=== PATIENT | male | born 1940 | race Caucasian/White ===

== ENCOUNTER 2023-07-28 08:29 | Emergency (ER) | payer MEDICARE, SELFPAY ==
[2023-07-28 08:48] VITALS: BP 195/121; PULSE 77; TEMP 36.8; O2SAT 96; BMI 29.0
--- NOTE | 2023-07-28 08:51 | W.ED.FEMALGU ---
HPI - Female Genitourinary General: Stated complaint: blood in urine Time Seen by Provider: 07/28/23 08:38 Discharge Plan Discharge Condition: Stable Coding Level of Care Code ED [employer] Telephone Clerk for Eva Bowles
--- NOTE | 2023-07-28 09:10 | W.ED.MALEGU ---
HPI - Male Genitourinary General: Chief complaint: Urogenital-Male Stated complaint: blood in urine Time Seen by Provider: 07/28/23 08:38 Source: patient Mode of arrival: ambulatory History of Present Illness: 82-year-old male presents emergency room complaining of intermittent painless hematuria. Has had this for several days is more pronounced today. He normally self caths. No fever sweats or chills he is not on any anticoagulants no history of renal stones. MD Complaint: other (Painless hematuria) Onset (ago): hour(s) Duration: intermittent Severity: moderate Quality: aching Relieving factors: none Exacerbating factors: none Associated symptoms: Reports hematuria; Deny discharge, dysuria, fevers/chills, nausea, rash, swelling, urinary incontinence, urinary retention, mass or vomiting Review of Systems Const: Denies: fever(s), chills, fatigue or malaise ENMT: Denies: throat pain, ear or mastoid pain, nasal discharge or nasal congestion Card: Denies: chest pain, edema, dyspnea on exertion or orthopnea Resp: Denies: dyspnea, productive cough or non-productive cough GI: Reports: abdominal pain (Suprapubic); Denies: nausea or vomiting : Reports: hematuria; Denies: dysuria, urinary frequency, urinary urgency or urinary incontinence Skin/Breast: Denies: rash or pruritus Physical Exam Const: COMMON NORMALS: no acute distress GENERAL APPEARANCE: cooperative and comfortable ORIENTATION/CONSCIOUSNESS: Yes awake, Yes oriented to person, Yes oriented to place and Yes oriented to time HENMT: COMMON NORMALS: normocephalic, atraumatic and hearing grossly normal bilaterally HEAD & SCALP: normocephalic and atraumatic Resp: COMMON NORMALS: normal respiratory effort, No retractions, No use of accessory muscles and clear to auscultation bilaterally AUSCULTATION: clear to auscultation bilaterally Cardio: COMMON NORMALS: regular rate, regular rhythm and No murmurs present (Cardio) RATE: regular rate RHYTHM: regular rhythm GI: COMMON NORMALS: Soft to palpation and No hepatosplenomegaly present AUSCULTATION: Yes normoactive bowel sounds PALPATION: Yes Soft to palpation, No Tenderness to palpation present (GI), No Guarding due to palpation present (GI) and Yes No hepatosplenomegaly present Extremity: COMMON NORMALS: normal to inspection, capillary refill normal, no clubbing, cyanosis or edema, no calf tenderness and no pedal edema Neuro: SENSORIUM/ORIENTATION: Yes oriented to person, Yes oriented to place and Yes oriented to time Skin: COMMON NORMALS: no rashes or lesions noted GENERAL SKIN EXAM: no rashes or lesions noted Course Vital Signs: Vital signs: Vital Signs Temperature 98.3 F 07/28/23 08:48 Pulse Rate 77 07/28/23 08:48 Blood Pressure 195/121 07/28/23 08:48 Pulse Oximetry 96 07/28/23 08:48 Oxygen Delivery Me thod Room Air 07/28/23 08:48 MDM - Male Medical Decision Making Acute urinary retention and hematuria. Patient is thousand in the bladder postvoid residual bladder scan. Montilla was placed and irrigated until there were no clots returned. We will discharge patient home with a leg bag increase tamsulosin to 0.8 nightly start on Cipro 500 twice daily and set him up for outpatient urology consultation. Medical Records I reviewed the patient's medical records. Lab Data I reviewed the patient's lab results. 07/28/23 09:05 07/28/23 09:05 Laboratory Results WBC 5.01 10^3/uL (3.29-11.43) 07/28/23 09:05 RBC 3.69 10^6/uL (3.85-5.65) L 07/28/23 09:05 Hgb 11.60 g/dL (11.27-16.99) 07/28/23 09:05 Hct 35.1 % (37-53) L 07/28/23 09:05 MCV 95.1 fl (82-101) 07/28/23 09:05 MCH 31.4 pg (27-33) 07/28/23 09:05 MCHC 33.0 g/dL (30-55) 07/28/23 09:05 RDW 15.2 % (12.1-15.1) H 07/28/23 09:05 Plt Count 146 10^3/cmm (157-399) L 07/28/23 09:05 MPV 10.1 fL (7.4-10.4) 07/28/23 09:05 Neut % (Auto) 55.9 % 07/28/23 09:05 Lymph % (Auto) 30.9 % 07/28/23 09:05 [place] % (Auto) 10.8 % 07/28/23 09:05 Eos % (Auto) 1.4 % 07/28/23 09:05 Baso % (Auto) 0.8 % 07/28/23 09:05 Neut # (Auto) 2.80 10^3/uL (1.8-7.7) 07/28/23 09:05 Lymph # (Auto) 1.6 10^3/uL (0.8-4.8) 07/28/23 09:05 [place] # (Auto) 0.5 10^3/uL (0.2-0.9) 07/28/23 09:05 Eos # (Auto) 0.1 10^3/uL (0.0-0.8) 07/28/23 09:05 Baso # (Auto) 0.0 10^3/uL (0.0-0.1) 07/28/23 09:05 Nucleated RBC % (auto) 0 % 07/28/23 09:05 Nucleated RBCs # 0.0 /100WBC 07/28/23 09:05 Sodium 140 mmol/L (136-145) 07/28/23 09:05 Potassium 3.6 mmol/L (3.5-5.1) 07/28/23 09:05 Chloride 103 mmol/L (98-107) 07/28/23 09:05 Carbon Dioxide 29 mmol/L (22-29) 07/28/23 09:05 Anion Gap 11.6 (5-19) 07/28/23 09:05 BUN 13 mg/dL (8-23) 07/28/23 09:05 Creatinine 0.6 mg/dL (0.7-1.2) L 07/28/23 09:05 GFR Calculation Not Reportable 07/28/23 09:05 Glucose 98 mg/dL (65-115) 07/28/23 09:05 Calculated Osmolality 290 mOsm/kg (285-295) 07/28/23 09:05 Calcium 8.9 mg/dL (8.5-10.5) 07/28/23 09:05 Total Bilirubin 1.6 mg/dL (0.15-1.2) H 07/28/23 09:05 AST 19 U/L (0-40) 07/28/23 09:05 ALT 16 U/L (0-41) 07/28/23 09:05 Alkaline Phosphatase 100 U/L (40-130) 07/28/23 09:05 Total Protein 6.8 g/dL (6.6-8.7) 07/28/23 09:05 Albumin 4.2 g/dL (3.5-5.2) 07/28/23 09:05 Globulin 2.6 g/dL (1.3-4.6) 07/28/23 09:05 Urine Color Red (Yellow) A 07/28/23 09:25 Urine Appearance Bloody (CLEAR) A 07/28/23 09:25 Urine pH 8 (5-7) H 07/28/23 09:25 Ur Specific [place] 1.010 (1.005-1.030) 07/28/23 09:25 Urine Protein 3+ (Negative) H 07/28/23 09:25 Urine Glucose (UA) Norm (Normal) 07/28/23 09:25 Urine Ketones 1+ (Negative) H 07/28/23 09:25 Urine Blood 3+ (Negative) H 07/28/23 09:25 Urine Nitrate Negative (Negative) 07/28/23 09:25 Urine Bilirubin Neg (Negative) 07/28/23 09:25 Urine Urobilinogen Norm mg/dL (Negative) 07/28/23 09:25 Ur Leukocyte Esterase 2+ (Negative) H 07/28/23 09:25 Urine RBC Too numerous to cnt /hpf (0-2) H 07/28/23 09:25 Urine WBC 0-4 /hpf (0-5) H 07/28/23 09:25 Ur Squamous Epith Cells 0-4 /hpf (0-5) H 07/28/23 09:25 Amorphous Sediment Not Reportable 07/28/23 09:25 Urine Bacteria 2+ /hpf (NONE) H 07/28/23 09:25 No radiology studies performed this visit Discharge Plan Discharge Patient Disposition: Home Clinical Impression: Urinary tract infection, Acute retention of urine Condition: Stable Prescriptions: New Flomax 0.4 mg capsule 0.4 mg PO BID Qty: 60 0RF Cipro 500 mg tablet 500 mg PO BID Qty: 20 0RF No Action lisinopril 20 mg tablet 20 mg PO DAILY potassium chloride 10 mEq tablet extended release 10 meq PO BID levothyroxine 25 mcg Tablet 25 mcg PO DAILY Vitamin B-12 50 mcg Tablet 50 mcg PO DAILY tamsulosin 0.4 mg capsule 0.4 mg PO DAILY furosemide 20 mg tablet 20 mg PO BID CoQ-10 30 mg Capsule 30 mg PO DAILY Vitamin D3 25 mcg (1,000 unit) Capsule 25 mcg PO DAILY rosuvastatin 20 mg tablet 20 mg PO DAILY Fish Oil 300-1,000 mg Capsule 1 cap PO DAILY Discharge Orders: Discharge ED (Routine); Ordered 07/28/23 Ordered By: Ranjith Silva Discharge Diet: Usual diet Discharge Activity: Resume usual activity Patient Instructions: Opioid Safety, Pain Management Activity Restrictions/Additional Instructions: Case management will make referral to a urologist. The Montilla catheter will need to remain in place until you see urology. You did have a mild cystitis as well which we will treat you with oral antibiotics. Coding Level of Care Code ED [employer] Specialist for Eva Bowles
[2023-07-28 09:26] LABS: Basophils % 0.8 %; Eosinophils # 0.1 10^3/uL (0.0-0.8); Eosinophils % 1.4 %; Hematocrit 35.1 % (37-53); Lymphocytes # 1.6 10^3/uL (0.8-4.8); Lymphocytes % 30.9 %; Mean Corpuscular Hemoglobin 31.4 pg (27-33); Mean Corpuscular Volume 95.1 fl (82-101); Mean Platelet Volume 10.1 fL (7.4-10.4); Monocytes # 0.5 10^3/uL (0.2-0.9); Monocytes % 10.8 %; Neutrophils % 55.9 %; Nucleated Red Blood Cells % 0 %; Platelet Count 146 10^3/cmm (157-399); Red Blood Count 3.69 10^6/uL (3.85-5.65); Red Cell Distribution Width 15.2 % (12.1-15.1); White Blood Count 5.01 10^3/uL (3.29-11.43)
[2023-07-28 09:41] LABS: Alanine Aminotransferase 16 U/L (0-41); Albumin Level 4.2 g/dL (3.5-5.2); Alkaline Phosphatase 100 U/L (40-130); Anion Gap 11.6 (5-19); Aspartate Amino Transferase 19 U/L (0-40); Blood Urea Nitrogen 13 mg/dL (8-23); Calcium 8.9 mg/dL (8.5-10.5); Carbon Dioxide 29 mmol/L (22-29); Chloride 103 mmol/L (98-107); Creatinine Clr Calc Pharmacy 85.4156; Globulin 2.6 g/dL (1.3-4.6); Glucose 98 mg/dL (65-115); Osmolality Calculated 290 mOsm/kg (285-295); Potassium 3.6 mmol/L (3.5-5.1); Sodium 140 mmol/L (136-145); Total Bilirubin 1.6 mg/dL (0.15-1.2); Total Protein 6.8 g/dL (6.6-8.7)
--- NOTE | 2023-07-28 09:55 | PC.NURSE ---
family member to nurses station stating that even though pt had just catheterized for urine, he felt that his bladder was full again. MD notified and bladder scanned for urine. Bladder scan showing >1000 ml. Pt to restroom to cath and empty bladder.
[2023-07-28 10:01] LABS: Bilirubin Urine Neg (Negative); Blood Urine 3+ (Negative); Glucose Urine UA Norm (Normal); Ketones Urine 1+ (Negative); Leukocyte Esterase Urine 2+ (Negative); Nitrate Urine Negative (Negative); Protein Urine 3+ (Negative); RBC Urine TOO NUMEROUS TO CNT /hpf (0-2); Urine Appearance Bloody (CLEAR); Urobilinogen Urine Norm (Negative); pH Urine 8 (5-7)
[2023-07-28 10:02] LABS: Add Urine Culture? Yes; Add Urine Microscopic? YES; Bacteria Urine 2+ /hpf; Squamous Epithelial Cell Urine 0-4 /hpf (0-5); Urine Color Red (Yellow); WBC Urine 0-4 /hpf (0-5)
--- NOTE | 2023-07-29 09:34 | PC.SOCIAL ---
Urology Referral Spoke with patient, who chose for referral to be sent to [facility]. Referral faxed at this time.
== END 2023-07-28 12:09 | disposition home or self-care (01) ==
PROVIDERS: Physician Assistant; Emergency Provider Family Medicine
DX: N39.0 Urinary tract infection, site not specified (principal); R33.9 Retention of urine, unspecified
CPT/HCPCS: 80053; 81001; 85025; 87077; 87086; 87186; 99283

== ENCOUNTER → 2023-08-21 13:37 | Outpatient (BNVA) | payer MEDICARE, SELFPAY | PROVIDERS: PCP Nurse Practitioner Family; Visit Provider Internal Medicine | DX: R07.9 Chest pain, unspecified (principal); I48.91 Unspecified atrial fibrillation; I45.10 Unspecified right bundle-branch block; I25.10 Atherosclerotic heart disease of native coronary artery without angina pectoris; I51.7 Cardiomegaly | CPT/HCPCS: 93005; 99204 ==

== ENCOUNTER → 2023-09-06 09:36 | Outpatient (BNVA) | payer MEDICARE, SELFPAY | PROVIDERS: PCP Nurse Practitioner Family; Visit Provider Nurse Practitioner | DX: M25.562 Pain in left knee (principal); G89.29 Other chronic pain | CPT/HCPCS: 73560; 73565 ==

== ENCOUNTER → 2023-09-10 13:49 | Outpatient (BNVA) | payer MEDICARE, SELFPAY | PROVIDERS: PCP Nurse Practitioner Family; Referring Provider Nurse Practitioner Family; Visit Provider Surgery | DX: K42.9 Umbilical hernia without obstruction or gangrene (principal); K59.09 Other constipation | CPT/HCPCS: 99204 ==

== ENCOUNTER 2023-09-12 06:44 | Day surgery (SDC) | payer MEDICARE, SELFPAY ==
[2023-09-12] VITALS (16 sets, daily range): BP systolic 142–214; BP diastolic 72–113; PULSE 69–83; RESP 14–18; TEMP 36.3–36.8; O2SAT 92–100; BMI 29.7
--- NOTE | 2023-09-12 06:57 | W.PM.OPSUD ---
Surgery/Procedure H&P Update DATE OF PROCEDURE: September 12, 2023 DATE H&P PERFORMED: 09/10/23 H&P UPDATE INFORMATION: I have reviewed H&P completed within last 30 days, I have examined patient prior to procedure and No changes to prior documentation PLANNED PROCEDURE: Operation Date: 09/12/23 08:10 Proposed Procedures p 91205 lap umbilical hernia repair with mesh K42.9(Not Applicable) - Ady Allen, DO
[2023-09-12] MEDS: sodium chloride 0.9% 1,000 ML 30 ML IV (07:57)
[2023-09-12] MEDS: scopolamine 1.5 Patch 1 PATCH TRANSDERMA (08:06)
[2023-09-12] MEDS: ceFAZolin 2,000 MG in sodium chloride 0.9% (plus) 50 ML 100 MG IV (08:15)
[2023-09-12 08:36] LABS: Eosinophils # 0.2 10^3/uL (0.0-0.8); Eosinophils % 3.8 %; Hematocrit 36.9 % (37-53); Lymphocytes # 1.4 10^3/uL (0.8-4.8); Lymphocytes % 36.1 %; Mean Corpuscular Hemoglobin 31.3 pg (27-33); Mean Corpuscular Volume 97.9 fl (82-101); Mean Platelet Volume 10.8 fL (7.4-10.4); Monocytes # 0.5 10^3/uL (0.2-0.9); Monocytes % 12.9 %; Neutrophils # 1.82 10^3/uL (1.8-7.7); Neutrophils % 45.9 %; Nucleated Red Blood Cells % 0 %; Platelet Count 141 10^3/cmm (157-399); Red Blood Count 3.77 10^6/uL (3.85-5.65); Red Cell Distribution Width 14.8 % (12.1-15.1); White Blood Count 3.96 10^3/uL (3.29-11.43)
[2023-09-12] MEDS: lidocaine-epi 2% 20 mL INJ 10 ML INJECTION (08:40)
--- NOTE | 2023-09-12 09:05 | PM.OP ---
Operative Report Date of procedure: September 12, 2023 Pre-op diagnosis: Umbilical hernia Post-op diagnosis: same Procedure done: Laparoscopic umbilical hernia repair with mesh Implants: 11 cm round Ventralight mesh Specimens removed/disposition: Hernia sac Surgeon: Ady Allen DO Anesthesia: General Estimated blood loss (mL): 5 Complications: None apparent Brief History: This very pleasant 82-year-old gentleman with an umbilical hernia that causes him pain. He desired repair. The risk and benefits were explained and documented. Procedure: Patient was wheeled into the operative room and placed on the OR table in a supine position. Abdomen was inspected prepped and draped in usual sterile fashion. Time-out was performed and all present were in agreement. A 15 blade scalp was used to make a 5 millimeter incision left upper quadrant. A Veress needle was placed into the incision and intra-abdominal insufflation was brought to 15 millimeters of mercury. A 12 millimeter trocar was placed into the left lower quadrant. The energy but device was then used to cut out the hernia sac. The hernia defect measured 1.5 cm in diameter. An 11 cm round Ventralight mesh was placed into the abdomen and brought up through the umbilicus using an the Marv-Renaldo. The mesh was then tacked in place in a double crown fashion. The skeleton of the mesh was removed via the left lower quadrant. The hernia sac was then removed from the abdomen via the left lower quadrant. The left lower quadrant port site was closed with an 0 Vicryl suture in a Marv-Renaldo in a [id number] fashion. Incisions were closed with 4 O Vicryl in a subcuticular interrupted fashion. Skin glue was applied. A dressing that included cotton balls and a Tegaderm was placed over the umbilicus. Patient tolerated the procedure well.
[2023-09-12] MEDS: HYDROmorphone 1 mg/mL INJ 1 mL 0.5 MG IVP ×3 (09:25→12:10)
--- NOTE | 2023-09-12 10:11 | ANES.PREANE2 ---
Pre-Anesthetic Assessment Height/Weight: Height 1.85 m Weight 102.058 kg Temp Pulse Resp BP Pulse Ox O2 Del Method O2 Flow Rate 98.3 F 80 16 183/102 95 Nasal Cannula 2 09/12/23 10:06 09/12/23 10:06 09/12/23 10:06 09/12/23 10:06 09/12/23 10:06 09/12/23 10:06 09/12/23 10:06 Operation Date: 09/12/23 08:10 Proposed Procedures p 08974 lap umbilical hernia repair with mesh K42.9(Not Applicable) - Ady Allen DO Familial anesthetic complications: none Was Beta Haydee taken within 24 hours: N/A Was Clonidine taken within 24 hours: N/A Last intake: Intake Last Liquid Date 09/11/23 Last Liquid Time 19:00 Last Solid Date 09/11/23 Last Solid Time 19:00 Social No alcohol and No tobacco Exam alert, oriented x 3 and clear to auscultation bilaterally Airway Submandibular: within normal limits Cervical ROM: within normal limits Mallampati: Class II Dentition: caps CV/HEM Atrial Fibrillation, Coronary Artery Disease (CABG) and Hypertension Self cath (since CABG) Metabolic Hyperlipidemia and Thyroid Disease Anesthetic Plan ASA status: 3 Anesthesia: General Medications/Allergies Home Medications Medication Instructions Recorded Confirmed Last Taken Type cholecalciferol (vitamin D3) 25 25 mcg PO DAILY 07/28/23 09/11/23 09/11/23 History mcg (1,000 unit) capsule (Vitamin D3) coenzyme Q10 30 mg capsule 30 mg PO DAILY 07/28/23 09/11/23 09/11/23 History cyanocobalamin (vitamin B-12) 50 50 mcg PO DAILY 07/28/23 09/11/23 09/11/23 History mcg tablet (Vitamin B-12) furosemide 20 mg tablet 20 mg PO BID 07/28/23 09/11/23 09/11/23 History levothyroxine 25 mcg tablet 25 mcg PO DAILY 07/28/23 09/11/23 09/11/23 History lisinopril 20 mg tablet 20 mg PO DAILY 07/28/23 09/11/23 09/11/23 History omega 0-ejd-evm-fish oil 300 1 cap PO DAILY 07/28/23 09/11/23 09/11/23 History mg-1,000 mg capsule (Fish Oil) potassium chloride 10 mEq 10 meq PO BID 07/28/23 09/11/23 09/11/23 History tablet,extended release rosuvastatin 20 mg tablet 20 mg PO DAILY 07/28/23 09/11/23 09/11/23 History tamsulosin 0.4 mg capsule 0.4 mg PO DAILY 07/28/23 09/11/23 09/11/23 History docusate sodium 100 mg capsule 100 mg PO BID #14 caps 09/12/23 Unknown Rx (DOK) hydrocodone 10 mg-acetaminophen 1 tab PO Q6H PRN pain #20 tabs 09/12/23 Unknown Rx 325 mg tablet Allergies Allergy/AdvReac Type Severity Reaction Status Date / Time No Known Allergies Allergy Verified 09/11/23 13:39 Current Medications Generic Name Dose Route Start Last Admin Trade Name Freq PRN Reason Stop Dose Admin Hydromorphone HCl 0.5 mg 09/12/23 06:51 09/12/23 09:40 Hydromorphone 1 Mg/Ml Inj 1 Ml IVP 09/13/23 06:51 0.5 mg Q10M PRN Administration Pain level 6-10 PACU Phase I Sodium Chloride 1,000 mls @ 30 mls/hr 09/12/23 07:00 09/12/23 07:57 Sodium Chloride 0.9% IV 09/13/23 06:59 30 mls/hr .Q24H WENDY Administration PFSH Anesthesia Medical History (Updated 09/10/23 @ 14:38 by Ady Allen DO) Hernia Surgical History (Updated 09/10/23 @ 14:38 by Ady Allen DO) History of open heart surgery History of quadruple bypass Data Anesthesia 09/12/23 07:40 09/12/23 07:40 Short CBC 09/12/23 Range/Units 07:40 WBC 3.96 (3.29-11.43) 10^3/uL Hgb 11.80 (11.27-16.99) g/dL Hct 36.9 L (37-53) % MCV 97.9 (82-101) fl Plt Count 141 L (157-399) 10^3/cmm Neut % (Auto) 45.9 % Neut # (Auto) 1.82 (1.8-7.7) 10^3/uL BMP 09/12/23 07:40 Sodium Cancelled Potassium Cancelled Chloride Cancelled Carbon Dioxide Cancelled BUN Cancelled Creatinine Cancelled Glucose Cancelled Calcium Cancelled Cardiac Studies: No Data to Display
--- NOTE | 2023-09-12 10:12 | ANE.PACU2 ---
Inpatient post-anesthesia follow up: Airway intact: Yes Vital signs: Temperature 98.3 F Pulse Rate 80 Respiratory Rate 16 Blood Pressure 183/102 Pulse Oximetry 95 Oxygen Delivery Me thod Nasal Cannula Oxygen Flow Rate 2 Fraction of Inspir ed Oxygen Hydration adequate: Yes Nausea and vomiting: No Pain level: 3 Mental status: Baseline
[2023-09-12] MEDS: ondansetron 2 mg/ML SDV 2 mL 4 MG IVP (10:13)
[2023-09-12] MEDS: HYDROcodone-acetaminophen 10-325 mg Tablet 1 TAB PO (10:37)
[2023-09-12] MEDS: acetaminophen 1,000 MG/100 ML PIGGYBACK 400 MG IV (12:04)
== END 2023-09-12 12:39 | disposition home or self-care (01) ==
PROVIDERS: PCP Nurse Practitioner Family; Visit Provider Surgery
PROC: 0WQF4ZZ Repair Abdominal Wall, Percutaneous Endoscopic Approach (ICD-10-PCS; CPT 49591; principal; 2023-09-12 08:00)
DX: K42.9 Umbilical hernia without obstruction or gangrene (principal); I48.91 Unspecified atrial fibrillation; I25.10 Atherosclerotic heart disease of native coronary artery without angina pectoris; Z95.1 Presence of aortocoronary bypass graft; I10 Essential (primary) hypertension; E78.5 Hyperlipidemia, unspecified
CPT/HCPCS: 49591; 85025; 88302; C1781; J0131; J0690; J1100; J1170; J2405; J2704; J2710; J3010; J3490; J7030

== ENCOUNTER 2023-09-17 10:52 | Emergency (ER) | payer MEDICARE, SELFPAY ==
[2023-09-17 11:04] VITALS: BP 211/91; PULSE 85; RESP 17; TEMP 36.4; O2SAT 93; BMI 29.2
--- NOTE | 2023-09-17 11:34 | XR_ITS ---
WS: [id number] Exam: XR abdomen 1V* [id number] Date/Time of Exam: 09/17/2023 11:45 AM Reason For Exam: constipation, postsurgical, no bm for 7 days No bowel obstruction or free air. Large amount of stool in the transverse and RIGHT colon. No sign of organ enlargement. Bony structures are intact. Mild levoscoliosis of the lumbar spine. IMPRESSION: 1. Constipation with a large amount of stool in the transverse and RIGHT colon. 2. No acute abdominal process.
--- NOTE | 2023-09-17 12:01 | W.ED.ABDPA2 ---
HPI - Abdominal Pain General: Chief Complaint: Abdominal Pain Stated Complaint: abdominal pain, hernia surgery 09/12, cant urinate Time Seen by Provider: 09/17/23 10:56 History of Present Illness: Patient presents to the ER with complaints of constipation on lower abdominal pain with nausea. Patient says he had hernia repair on 09/[address] Allen and has not had a bowel movement since then. Patient does admit to having his stomach making noises and passing gas does not have a bowel movement. Patient states he is on narcotics for the surgery. Patient was doing well up until couple days ago when his abdomen started hurting. Review of Systems General: Reports: 10 or more systems reviewed and unremarkable except in HPI and below PFSH ED PFSH: Medical History Hernia Surgical History History of open heart surgery History of quadruple bypass Physical Exam Const: COMMON NORMALS: no acute distress, average body habitus, patient oriented x3, no limitations, healthy appearing, alert and well nourished HENMT: COMMON NORMALS: normocephalic, atraumatic, hearing grossly normal bilaterally, external ears normal, Normal external nose present, moist oral mucous membranes and oropharynx normal HEAD & SCALP: normocephalic and atraumatic NOSE: Normal external nose present EXTERNAL EAR: Yes external ears normal Eye: COMMON NORMALS: Equal, round and reactive pupils present, EOMs intact bilaterally, conjunctivae normal and no scleral icterus CONJUNCTIVA: Yes conjunctivae normal PUPIL: Yes Equal, round and reactive pupils present Neck/C-Spine: COMMON NORMALS: no JVD Chest: COMMONS NORMALS: normal inspection of the chest and normal palpation of entire chest wall Resp: COMMON NORMALS: normal respiratory effort, No retractions, No use of accessory muscles and clear to auscultation bilaterally AUSCULTATION: clear to auscultation bilaterally Cardio: COMMON NORMALS: no JVD, regular rate, regular rhythm, S1 normal heart sound present, S2 normal heart sound present, No gallops present (Cardio), No clicks present (Cardio), No murmurs present (Cardio) and No rub (Cardio) RATE: regular rate RHYTHM: regular rhythm HEART SOUNDS: S1 normal heart sound present and S2 normal heart sound present GI: COMMON NORMALS: Normal to inspection, nondistended, normoactive bowel sounds present, Soft to palpation, No hepatosplenomegaly present and no masses; negative for non-tender (Diffusely tender, decreased bowel sounds throughout) PALPATION: Yes Soft to palpation and Yes No hepatosplenomegaly present Neuro: COMMON NORMALS: patient oriented x3 SENSORIUM/ORIENTATION: Yes alert Course Vital Signs: Vital signs: Vital Signs Temperature 97.6 F 09/17/23 11:04 Pulse Rate 85 09/17/23 11:04 Respiratory Rate 17 09/17/23 11:04 Blood Pressure 185/81 09/17/23 13:44 Pulse Oximetry 94 09/17/23 13:44 Oxygen Delivery Me thod Room Air 09/17/23 13:44 MDM - Abdominal Pain Medical Decision Making Patient presents to the ER with complaints of constipation. On physical exam as noted patient has high blood pressure also. Patient was given clonidine 0.2 mg as well as Dulcolax 10 mg and lactulose 45 g. X-ray was read off his constipation. Patient be discharged home with a prescription for lactulose and Dulcolax. Patient should follow-up with his PCP in approximately 7 days or sooner as needed. Differential Diagnosis Likely abdominal pain and constipation; Unlikely acute appendicitis, calculus of kidney, diverticulitis, endometriosis, gastroenteritis, pancreatitis or small bowel obstruction Medical Records I reviewed the patient's medical records. Lab Data I reviewed the patient's lab results. All radiology interpretation(s) finalized by discharge Discharge Plan Discharge Patient Disposition: Home Clinical Impression: Constipation Condition: Stable Prescriptions: New lactulose 20 gram/30 mL solution 30 g PO TID PRN (Reason: constipation) Qty: 1200 0RF bisacodyl [Dulcolax (bisacodyl)] 5 mg tablet,delayed release (DR/EC) 5 mg PO BID PRN (Reason: constipation) Qty: 30 0RF No Action lisinopril 20 mg tablet 20 mg PO DAILY potassium chloride 10 mEq tablet extended release 10 meq PO BID levothyroxine 25 mcg Tablet 25 mcg PO DAILY Vitamin B-12 50 mcg Tablet 50 mcg PO DAILY tamsulosin 0.4 mg capsule 0.4 mg PO DAILY furosemide 20 mg tablet 20 mg PO BID coenzyme Q10 30 mg Capsule 30 mg PO DAILY cholecalciferol (vitamin D3) [Vitamin D3] 25 mcg (1,000 unit) Capsule 25 mcg PO DAILY rosuvastatin 20 mg tablet 20 mg PO DAILY omega 8-pnh-nur-fish oil [Fish Oil] 300-1,000 mg Capsule 1 cap PO DAILY hydrocodone-acetaminophen 10-325 mg tablet 1 tab PO Q6H PRN (Reason: pain) Qty: 20 0RF Rx Instructions: May take half of a tab at a time docusate sodium [DOK] 100 mg capsule 100 mg PO BID Qty: 14 0RF ondansetron 8 mg tablet,disintegrating 8 mg PO TID PRN (Reason: nausea and vomiting) Qty: 20 1RF Discharge Orders: Discharge ED (Routine); Ordered 09/17/23 Ordered By: Maxwell Zepead Referrals: Katie Otto NP [Primary Care Provider] - 1 week Patient Instructions: Constipation (ED) Activity Restrictions/Additional Instructions: Please take all your medicine as directed. Please increase fiber and increase water. Please follow-up with your family practice physician within the next 7 days or sooner as needed. If your symptoms do not resolve please return to the ER for further evaluation. Coding Level of Care Code ED Charge Entry for Eva Bowles
[2023-09-17 12:52] VITALS: BP 210/97
[2023-09-17] MEDS: bisacodyl 5 mg Tablet 10 MG PO (12:52)
[2023-09-17] MEDS: cloNIDine 0.1 mg Tablet 0.2 MG PO (12:52)
[2023-09-17] MEDS: lactulose oral liq 20 gm/30 mL UDC 45 GM PO (12:53)
[2023-09-17 13:44] VITALS: BP 185/81; O2SAT 94
== END 2023-09-17 14:38 | disposition home or self-care (01) ==
PROVIDERS: Emergency Provider Emergency Medicine; PCP Nurse Practitioner Family
DX: K59.00 Constipation, unspecified (principal)
CPT/HCPCS: 74018; 99283

== ENCOUNTER → 2023-09-24 09:36 | Outpatient (BNVA) | payer MEDICARE, SELFPAY | PROVIDERS: PCP Nurse Practitioner Family; Visit Provider Surgery | DX: Z98.890 Other specified postprocedural states (principal); Z87.19 Personal history of other diseases of the digestive system | CPT/HCPCS: 99024 ==

== ENCOUNTER → 2023-10-16 09:50 | Outpatient (BNVA) | payer MEDICARE, SELFPAY | PROVIDERS: PCP Nurse Practitioner Family; Visit Provider Nurse Practitioner Family | DX: L57.0 Actinic keratosis (principal); D22.4 Melanocytic nevi of scalp and neck; L81.4 Other melanin hyperpigmentation; L57.8 Other skin changes due to chronic exposure to nonionizing radiation; Z85.828 Personal history of other malignant neoplasm of skin | CPT/HCPCS: 17000; 99203 ==

== ENCOUNTER → 2023-12-09 10:43 | Outpatient (BNVA) | payer MEDICARE, SELFPAY | PROVIDERS: PCP Nurse Practitioner Family; Referring Provider Nurse Practitioner Family; Visit Provider Internal Medicine Pulmonary Disease | DX: J90 Pleural effusion, not elsewhere classified (principal); R06.02 Shortness of breath; Z95.1 Presence of aortocoronary bypass graft; Z99.89 Dependence on other enabling machines and devices | CPT/HCPCS: 36415; 71046; 82785; 85025; 86003; 99204 ==

== ENCOUNTER 2023-12-16 08:57 | Outpatient (CLI) | payer MEDICARE, SELFPAY ==
--- NOTE | 2023-12-16 09:15 | USCV_ITS ---
King Perkins Age: 83 Gender: M : 1940 Exam Date: 12/16/2023 09:08 Ordering Phys: Tenzin Dudley MD Technologist: Exam Location: [facility] [place] Indication: chest pain BP: 155 / 97 HR: 0 Rhythm: Sinus Technical Quality: Adequate MEASUREMENTS (Male / Female) Normal Values 2D ECHO LV Diastolic Diameter PLAX 5.5 cm 4.2 - 5.9 / 3.9 - 5.3 cm IVS Diastolic Thickness 1.4 cm 0.6 - 1.0 / 0.6 - 0.9 cm IVS Systolic Thickness 1.7 cm LVPW Diastolic Thickness 1.3 cm 0.6 - 1.0 / 0.6 - 0.9 cm LVPW Systolic Thickness 1.7 cm LV Ejection Fraction 2D Teich 59.5 % IVC Diameter 2.1 cm DOPPLER AV Peak Velocity 247.0 cm/s LVOT Peak Velocity 84.0 cm/s AV Area Cont Eq vti 1.1 cm squared MV Area PHT 7.1 cm squared TR Peak Velocity 363.0 cm/s TR Peak Gradient 52.7 mmHg Right Atrial Pressure 3.0 mmHg Pulmonary Artery Systolic Pressu 55.7 mmHg PV Peak Velocity 85.0 cm/s FINDINGS Left Ventricle Left ventricle is normal in size. LV systolic function is normal with EF 55 to 60%. No regional wall motion abnormalities are seen. Right Ventricle Normal in size and function Right Atrium Dilated Left Atrium Severely dilated Mitral Valve Mitral annular calcification. Mild mitral regurgitation. Aortic Valve Aortic valve is thickened and calcified. Mild aortic stenosis with mean gradient of 11 mmHg. Tricuspid Valve Moderate tricuspid regurgitation. RVSP is 55-60 mmHg. This is consistent with moderate pulmonary hypertension. Pulmonic Valve Mild pulmonic regurgitation. Pericardium Normal Aorta Normal in size IVC Appears to be dilated CONCLUSIONS LV systolic function is normal with EF of 55-60% Biatrial dilation Mild mitral regurgitation Mild aortic stenosis Moderate tricuspid regurgitation Moderate pulmonary hypertension Mild pulmonic regurgitation IVC is dilated. No comparsion studies are available. Td Lowry MD (Electronically Signed) Final Date: 24 December 2023 15:01 S
== END 2023-12-16 08:58 | disposition home or self-care (01) ==
LOC: RAD 08:58
PROVIDERS: PCP Nurse Practitioner Family; Visit Provider Internal Medicine Pulmonary Disease
DX: R06.02 Shortness of breath (principal)
CPT/HCPCS: 93306

== ENCOUNTER 2023-12-31 08:49 | Day surgery (SDC) | payer MEDICARE, SELFPAY ==
[2023-12-31 09:07] VITALS: BP 212/100; PULSE 80; RESP 16; TEMP 36.5; O2SAT 92
[2023-12-31 09:09] VITALS: BMI 27.7
--- NOTE | 2023-12-31 09:27 | XR_ITS ---
WS: [id number] PORTABLE CHEST HISTORY: Post RIGHT thoracentesis. COMPARISON: 12/09/2023 No pneumothorax status post thoracentesis. There is a small area of obscuration at the RIGHT lung bas e extending to the diaphragm. This is not a simple layering pleural effusion. This may be a chronic e ffusion or pleural thickening. Similar as compared to the prior study. LEFT lung is hyperexpanded. Cardiac size: Moderately enlarged cardiac silhouette. Prior CABG. Mediastinum/Aorta: Atherosclerosis aorta. No osseous abnormality seen. IMPRESSION: 1. Increased pleural density at the RIGHT lung base obscuring the diaphragm. This is not a simple la yering pleural effusion. This may be a chronic or loculated effusion or pleural thickening. 2. No pneumothorax post thoracentesis.
--- NOTE | 2023-12-31 09:46 | PM.OUTPTPROC ---
Outpatient Procedures Thoracentesis Consent signed and on chart: Yes Time Out Performed: Yes Procedure: therapeutic thoracentesis Location: Right Local anesthetic used: lidocaine 1% Bedside ultrasound used: yes, pleural effusion confirmed and location marked and yes, real-time guidance Preparation: sterile prep and drape Amount of fluid obtained (mL): 0 Size of needle used: 20 Post Procedure Exam: awake, alert, normal BP, normal HR and normal SpO2 Post-procedure chest x-ray ordered: Yes Estimated blood loss (mL): 5 Patient Tolerated Procedure: well and no complications Procedure Note: Pulmonary & Critical Care Medicine Procedure - Ultrasound guided Thoracentesis Procedure: CPT code 68989 thoracentesis, needle or catheter, aspiration of the pleural space; with imaging guidance Indication: Worsening right pleural effusion. C56.2 Senior Web Applications Developer(s): Tenzin Dudley MD [facility] Clinical history:Mr. King warren is an 83-year-old male with past medical history of CAD, atrial fibrillation referred by Iraida Otto for pleural effusion. Pt tells me that he moved from [place] in june 2023. He had h/o pleural effusion in April 2018 and he had fluid in lungs and was drained 4 times in that month. He was checked later and was told he has small residual effusion. He is complaining of shortness of breath on exertion. Chest x ray showed Increased pleural density at the RIGHT lung base obscuring the diaphragm. This is not a simple layering pleural effusion. This may be a chronic or loculated effusion or pleural thickening. We will proceed with thoracentesis for diagnostic as well as therapeutic benefits. Technique: The study was performed in an ACR accredited facility. Medication reconciliation form reviewed and any changes related this procedure resolved. Report: The procedure for thoracentesis was explained to the patient including the risks, benefits and possible complications. The patient was given the opportunity to ask questions, wished to proceed, and signed the written informed consent form. The site was then prepped and draped using maximal sterile barrier technique. Using ultrasound guidance, using 20 guauge needle 1% lidocaine was used for local anesthetic; however the needle was placed in the pleural cavity but could not aspirate. After couple of attempts the procedure was terminated. Post procedure vitasl are stable and chest x ray did not show any pneumothorax. The patient tolerated the procedure well without any immediate complications. Impression: 1. unsuccessful ultrasound-guided right thoracentesis ICD-10 code-J90 pleural effusion, not elsewhere classified
== END 2023-12-31 09:55 | disposition home or self-care (01) ==
LOC: GILAB 08:51
PROVIDERS: PCP Nurse Practitioner Family; Visit Provider Internal Medicine Pulmonary Disease
DX: J90 Pleural effusion, not elsewhere classified (principal); I25.10 Atherosclerotic heart disease of native coronary artery without angina pectoris; I48.91 Unspecified atrial fibrillation; Z53.8 Procedure and treatment not carried out for other reasons
CPT/HCPCS: 32555; 71045

== ENCOUNTER 2024-01-21 08:45 | Outpatient (CLI) | payer MEDICARE, SELFPAY ==
[2024-01-21 09:09] VITALS: PULSE 67; RESP 18; O2SAT 99
[2024-01-21] MEDS: albuterol 2.5 mg/3 mL Neb INHALATION (09:09)
[2024-01-21 09:13] VITALS: PULSE 71
== END 2024-01-21 08:46 | disposition home or self-care (01) ==
LOC: RT 08:47
PROVIDERS: PCP Nurse Practitioner Family; Visit Provider Internal Medicine Pulmonary Disease
DX: R06.02 Shortness of breath (principal)
CPT/HCPCS: 94060; 94726; 94729; J7613

== ENCOUNTER → 2024-02-24 10:10 | Outpatient (BNVA) | payer MEDICARE, SELFPAY | PROVIDERS: PCP Nurse Practitioner Family; Visit Provider Nurse Practitioner Family | DX: I48.0 Paroxysmal atrial fibrillation (principal); I25.10 Atherosclerotic heart disease of native coronary artery without angina pectoris | CPT/HCPCS: 99214 ==

== ENCOUNTER → 2024-06-04 08:29 | Outpatient (BNVA) | payer MEDICARE, SELFPAY | PROVIDERS: PCP Nurse Practitioner Family; Visit Provider Nurse Practitioner Family | DX: D48.5 Neoplasm of uncertain behavior of skin (principal); L57.0 Actinic keratosis; S80.921A Unspecified superficial injury of right lower leg, initial encounter; X58.XXXA Exposure to other specified factors, initial encounter; D22.4 Melanocytic nevi of scalp and neck; L82.1 Other seborrheic keratosis; L81.4 Other melanin hyperpigmentation; L98.8 Other specified disorders of the skin and subcutaneous tissue; Z85.828 Personal history of other malignant neoplasm of skin | CPT/HCPCS: 11102; 17000; 99213 ==

== ENCOUNTER → 2024-09-07 13:20 | Outpatient (BNVA) | payer MEDICARE, SELFPAY | PROVIDERS: PCP Nurse Practitioner Family; Visit Provider Nurse Practitioner Family | DX: Z09 Encounter for follow-up examination after completed treatment for conditions other than malignant neoplasm (principal); L57.0 Actinic keratosis; L81.4 Other melanin hyperpigmentation; L98.8 Other specified disorders of the skin and subcutaneous tissue; Z85.828 Personal history of other malignant neoplasm of skin | CPT/HCPCS: 17000; 99213 ==

== ENCOUNTER → 2024-11-25 14:04 | Outpatient (BNVA) | payer MEDICARE, SELFPAY | PROVIDERS: PCP Nurse Practitioner Family; Visit Provider Internal Medicine | DX: I48.0 Paroxysmal atrial fibrillation (principal); I25.10 Atherosclerotic heart disease of native coronary artery without angina pectoris | CPT/HCPCS: 99214 ==

== ENCOUNTER 2025-01-11 13:55 | Outpatient (CLI) | payer MEDICARE, SELFPAY ==
--- NOTE | 2025-01-11 14:15 | USCV_ITS ---
King Perkins Age: 84 Gender: M : 1940 Exam Date: 01/11/2025 14:47 Ordering Phys: Td Lowry M.D ([email or web address]) Technologist: JORDON Exam Location: [facility] Indication: CP, SOB BP: 145 / 80 HR: 66 Rhythm: Sinus Technical Quality: Adequate MEASUREMENTS (Male / Female) Normal Values 2D ECHO LV Diastolic Diameter PLAX 4.4 cm 4.2 - 5.9 / 3.9 - 5.3 cm IVS Diastolic Thickness 1.4 cm 0.6 - 1.0 / 0.6 - 0.9 cm IVS Systolic Thickness 1.9 cm LVPW Diastolic Thickness 1.5 cm 0.6 - 1.0 / 0.6 - 0.9 cm LVPW Systolic Thickness 2.5 cm LVOT Diameter 2.1 cm LV Ejection Fraction 2D Teich 63.1 % LV Ejection Fraction MOD 4C 68.7 % LV Ejection Fraction MOD 2C 76.0 % LV Ejection Fraction 2C AL 76.5 % LA Diameter 5.7 cm RA Systolic Volume 4C AL 71.5 ml RA Systolic Volume 4C MOD 68.4 ml LA Sys Volume AL 110.1 cm cubed LA Sys Volume Index AL 50.6 cm cubed/m squared Aorta at Sinotubular Diameter 2.5 cm IVC Diameter 2.9 cm M-MODE LA Ao Ratio MM 1.7 AV Cusp Separation MM 0.9 cm DOPPLER AV Peak Velocity 282.5 cm/s LVOT Peak Velocity 97.0 cm/s AV Area Cont Eq vti 1.2 cm squared AV Area Cont Eq pk 1.2 cm squared MV Peak Velocity 170.0 cm/s MV Area PHT 3.8 cm squared Mitral E to A Ratio 3.2 TV Peak Velocity 358.5 cm/s TR Peak Velocity 381.0 cm/s TR Peak Gradient 58.1 mmHg TV Peak E Velocity 126.0 cm/s PV Peak Velocity 135.0 cm/s FINDINGS Left Ventricle Left ventricle is normal in size. LV systolic function is normal with EF of 60-65%. No regional wall motion abnormalities are seen. Right Ventricle RV is hypokinetic Right Atrium Dilated. Appears to have echogenic structure consistent with possible large thrombus. Left Atrium Dilated Mitral Valve Moderate mitral annular calcification. Trace mitral regurgitation. Aortic Valve Aortic valve is thickened and calcified. Moderate aortic stenosis with aortic valve area of 1.13cm2 and mean gradient across aortic valve of 19mmHg, Tricuspid Valve Mild tricuspid regurgitation. RVSP is 50 to 55 mmHg. This is consistent with moderate pulmonary hypertension. Pulmonic Valve Not well visualized Pericardium Normal Aorta Normal in size IVC Appears dilated CONCLUSIONS LV systolic function is normal with EF of 60-65%. RV is hypokinetic RA is dilated Appears to have echogenic structure consistent with possible large thrombus. Dilated Trace mitral regurgitation. Moderate aortic stenosis with aortic valve area of 1.13cm2 and mean gradient across aortic valve of 19mmHg, Mild tricuspid regurgitation. RVSP is 50 to 55 mmHg. This is consistent with moderate pulmonary hypertension. IVC appears to be dilated Td Lowry MD (Electronically Signed) Final Date: 11 January 2025 16:43 S
== END 2025-01-11 13:56 | disposition home or self-care (01) ==
PROVIDERS: PCP Nurse Practitioner Family; Visit Provider Internal Medicine
DX: R07.9 Chest pain, unspecified (principal); R06.02 Shortness of breath; I42.8 Other cardiomyopathies; R93.1 Abnormal findings on diagnostic imaging of heart and coronary circulation; I34.81 Nonrheumatic mitral (valve) annulus calcification; I35.8 Other nonrheumatic aortic valve disorders; I35.0 Nonrheumatic aortic (valve) stenosis; I07.1 Rheumatic tricuspid insufficiency; I48.0 Paroxysmal atrial fibrillation; I25.10 Atherosclerotic heart disease of native coronary artery without angina pectoris
CPT/HCPCS: 93306; 99215

== ENCOUNTER 2025-01-11 19:32 | Observation (INO) | payer MEDICARE, SELFPAY ==
--- NOTE | 2025-01-11 19:40 | CTR_ITS ---
PROCEDURE INFORMATION: Exam: CTA Head With Contrast, Arteriography Exam date and time: 01/11/2025 8:41 PM Age: 84 years old Clinical indication: Other: Stroke; Additional info: SANDHU TECHNIQUE: Imaging protocol: Computed tomographic angiography of the head with contrast. Exam focused on the arteries. 3D rendering (Not supervised by radiologist): MIP and/or 3D reconstructed images were created by the technologist. Radiation optimization: All CT scans at this facility use at least one of these dose optimization techniques: automated exposure control; mA and/or kV adjustment per patient size (includes targeted exams where dose is matched to clinical indication); or iterative reconstruction. Contrast material: OMNI 350; Contrast volume: 70 ml; Contrast route: INTRAVENOUS (IV); COMPARISON: CT head wo con* [id number] 01/11/2025 8:38 PM RADIATION DOSE METRICS: Total DLP (mGy-cm): 608.24 FINDINGS: ANTERIOR CIRCULATION: Right internal carotid artery: Patent. Right middle cerebral artery: Patent. Right anterior cerebral artery: Patent. Left internal carotid artery: Patent. Left middle cerebral artery: Patent. Left anterior cerebral artery: Patent. POSTERIOR CIRCULATION: Right vertebral artery: Patent. Left vertebral artery: Patent. Basilar artery: Patent. Right posterior cerebral artery: Patent. origin. Left posterior cerebral artery: Patent. Other: Prominence of the pineal gland raising the question of underlying mass. PROCEDURE INFORMATION: Exam: CTA Neck With Contrast Exam date and time: 01/11/2025 8:41 PM Age: 84 years old Clinical indication: Other: Stroke; Additional info: SANDHU TECHNIQUE: Imaging protocol: Computed tomographic angiography of the neck with contrast. Exam focused on the cervical segments of the vasculature. 3D rendering (Not supervised by radiologist): MIP and/or 3D reconstructed images were created by the technologist. Radiation optimization: All CT scans at this facility use at least one of these dose optimization techniques: automated exposure control; mA and/or kV adjustment per patient size (includes targeted exams where dose is matched to clinical indication); or iterative reconstruction. Contrast material: OMNI 350; Contrast volume: 70 ml; Contrast route: INTRAVENOUS (IV); COMPARISON: CT head wo con* [id number] 01/11/2025 8:38 PM RADIATION DOSE METRICS: Total DLP (mGy-cm): 608.24 FINDINGS: Right common carotid artery: Patent. No evidence of hemodynamically significant stenosis. Right internal carotid artery: Patent. No evidence of hemodynamically significant stenosis. Right external carotid artery: Patent. Left common carotid artery: Patent. No evidence of hemodynamically significant stenosis. Left internal carotid artery: Patent. No evidence of hemodynamically significant stenosis. Left external carotid artery: Patent. Right vertebral artery: Patent. Left vertebral artery: Patent. Soft tissues: No gross soft tissue abnormality. No evidence of fluid collection or hematoma. Bones/joints: No evidence of acute fracture or subluxation of the cervical spine. Moderate multilevel uncovertebral hypertrophy and facet arthrosis. Moderate-severe right-sided foraminal stenosis at C3-C4 and C5-C6. Consider correlation with follow-up outpatient MRI to evaluate for neural impingement. CT/CT angio headneck* [id number] IMPRESSION: 1. No evidence of large vessel occlusion or acute thrombosis in the head. 2. Prominence of the pineal gland raising the question of underlying mass. If not previously characterized, consider further evaluation with outpatient MRI. IMPRESSION: 1. No evidence of acute thrombosis or hemodynamically significant stenosis in the neck. REFERENCES: NASCET CRITERIA. The degree of stenosis in the cervical segment of the internal carotid artery is based on NASCET criteria. Normal is no stenosis. Mild is less than 50% stenosis. Moderate is 50-69% stenosis. Severe is 70% to 99% stenosis. Total occlusion is no detectable patent lumen.
--- NOTE | 2025-01-11 19:40 | CTR_ITS ---
PROCEDURE INFORMATION: Exam: CT Head Without Contrast Exam date and time: 01/11/2025 8:38 PM Age: 84 years old Clinical indication: Altered mental status/memory loss and other: SANDHU symptoms; Additional info: Stroke TECHNIQUE: Imaging protocol: Computed tomography of the head without contrast. Radiation optimization: All CT scans at this facility use at least one of these dose optimization techniques: automated exposure control; mA and/or kV adjustment per patient size (includes targeted exams where dose is matched to clinical indication); or iterative reconstruction. Other technique: STROKE PROTOCOL was implemented. COMPARISON: No relevant prior studies available. RADIATION DOSE METRICS: Total DLP (mGy-cm): 1202.08 FINDINGS: Brain: No evidence of intra-axial or extra-axial hemorrhage. No mass effect or midline shift. Focal parietal encephalomalacia bilaterally. Pineda-white differentiation is otherwise maintained. Basilar cisterns are patent. Cerebral ventricles: No hydrocephalus. Paranasal sinuses: The visualized paranasal sinuses are well aerated. Mastoid air cells: The visualized mastoids and middle ears are clear. Bones: Calvarium is intact. No evidence of acute fracture. Soft tissues: No gross soft tissue abnormality. CT/CT head wo con* [id number] IMPRESSION: 1. No acute intracranial abnormality. ASSESSMENT: ASPECTS ([place] Stroke Program Early CT Score) is 10.
[2025-01-11 19:56] VITALS: BP 179/82; PULSE 86; RESP 18; TEMP 36.7; O2SAT 95
--- NOTE | 2025-01-11 20:00 | ECG_ITS ---
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1940 Requested By: Barbara Miramontes Order Number: [id number] Reading MD: RAYMOND ALLEN Measurements Intervals [place] Rate: 70 P: 240 RI: 259 QRS: 98 QRSD: 117 T: 30 QT: 389 QTc: 422 Interpretive Statements ELECTRONIC ATRIAL PACEMAKER ELECTRONIC VENTRICULAR PACEMAKER ABNORMAL RHYTHM ECG INTERPRETATION BASED ON A DEFAULT AGE OF 40 YEARS Compared to ECG 08/21/2023 13:44:27 Atrial fibrillation no longer present Ventricular premature complex(es) no longer present Aberrant conduction of supraventricular beat(s) no longer present Incomplete right bundle-branch block no longer present Right ventricular hypertrophy no longer present Atrial abnormality no longer present T-wave abnormality no longer present Electronically Signed On 01-11-2025 22:13:06 CDT by RAYMOND ALLEN [id number]
--- NOTE | 2025-01-11 20:06 | XRR_ITS ---
PROCEDURE INFORMATION: Exam: XR Chest Exam date and time: 01/11/2025 8:11 PM Age: 84 years old Clinical indication: Shortness of breath; Prior surgery; Surgery date: 6+ months; Surgery type: Stents; Additional info: SOB TECHNIQUE: Imaging protocol: Radiologic exam of the chest. Views: 1 view. COMPARISON: CR XR chest 1V portable [id number] 12/31/2023 9:40 AM FINDINGS: Lungs: No focal consolidation. Pleural spaces: No evidence of pneumothorax. Small right-sided pleural effusion. Heart/Mediastinum: Postsurgical changes of the mediastinum compatible with prior CABG. Left atrial appendage ligation clip noted. There is moderate cardiomegaly. Bones/joints: No evidence of acute osseous abnormality. XR/XR chest 1V portable [id number] IMPRESSION: 1. Small right-sided pleural effusion.
--- NOTE | 2025-01-11 20:09 | W.ED.SOB ---
HPI - SOB/Dyspnea General: Chief Complaint: Shortness of Breath/Dyspnea Stated Complaint: sent Blood Clot Time Seen by Provider: 01/11/25 19:41 Source: patient Mode of arrival: ambulatory Limitations: no limitations History of Present Illness: HPI Narrative: 84-year-old male sent here from cardiology he had an echo done today and was found to have a right atrial mass concern it could be a thrombus. 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 Associated symptoms: Deny abdominal pain, chest pain, fever(s), nausea or vomiting Related Data Home Medications ?Medication ?Instructions ?Recorded ?Confirmed cholecalciferol (vitamin D3) 25 25 mcg PO DAILY 07/28/23 01/11/25 mcg (1,000 unit) capsule (Vitamin D3) coenzyme Q10 30 mg capsule 30 mg PO DAILY 07/28/23 01/11/25 cyanocobalamin (vitamin B-12) 50 50 mcg PO DAILY 07/28/23 01/11/25 mcg tablet (Vitamin B-12) furosemide 20 mg tablet 20 mg PO BID 07/28/23 01/11/25 levothyroxine 25 mcg tablet 25 mcg PO DAILY 07/28/23 01/11/25 rosuvastatin 20 mg tablet 20 mg PO DAILY 07/28/23 01/11/25 tamsulosin 0.4 mg capsule 0.4 mg PO DAILY 07/28/23 01/11/25 multivitamin 1 tab PO DAILY 12/09/23 01/11/25 lisinopril 20 mg tablet 20 mg PO BID 11/25/24 01/11/25 potassium chloride 10 mEq 10 meq PO BID 11/25/24 01/11/25 tablet,extended release Previous Rx's ?Medication ?Instructions ?Recorded hydrochlorothiazide 12.5 mg tablet 12.5 mg PO DAILY #90 tabs 12/02/24 Allergies Allergy/AdvReac Type Severity Reaction Status Date / Time No Known Allergies Allergy Verified 01/11/25 20:00 Review of Systems Const: Denies: fever(s), chills, body aches or change in appetite ENMT: Denies: throat pain or dental pain Card: Denies: chest pain Resp: Reports: dyspnea GI: Denies: abdominal pain, nausea, vomiting or diarrhea : Denies: dysuria Musc: Denies: neck pain or back pain Skin/Breast: Denies: rash Neuro: Denies: headache(s) PFSH ED PFSH: Medical History Hernia Surgical History Hx of umbilical hernia repair 09/12/23 Dr Allen History of open heart surgery History of quadruple bypass Social History Smoking and tobacco/nicotine status: never used tobacco/nicotine Physical Exam Const: COMMON NORMALS: patient oriented x3 HENMT: COMMON NORMALS: normocephalic and atraumatic HEAD & SCALP: normocephalic and atraumatic Eye: COMMON NORMALS: Equal, round and reactive pupils present and EOMs intact bilaterally PUPIL: Yes Equal, round and reactive pupils present Neck/C-Spine: COMMON NORMALS: full ROM and supple Chest: COMMONS NORMALS: normal inspection of the chest and normal palpation of entire chest wall Resp: COMMON NORMALS: normal respiratory effort, No retractions, No use of accessory muscles and clear to auscultation bilaterally AUSCULTATION: clear to auscultation bilaterally Cardio: COMMON NORMALS: regular rate, regular rhythm and No murmurs present (Cardio) RATE: regular rate RHYTHM: regular rhythm GI: COMMON NORMALS: Normal to inspection, nondistended, normoactive bowel sounds present, Soft to palpation, non-tender and no masses PALPATION: Yes Soft to palpation Extremity: COMMON NORMALS: normal to inspection and full ROM Neuro: COMMON NORMALS: patient oriented x3, moves all extremities and no focal motor deficits Psych: COMMON NORMALS: mental status grossly normal, Normal thought process present and cooperative THOUGHT PROCESS: Normal thought process present Skin: COMMON NORMALS: no rashes or lesions noted and no wounds GENERAL SKIN EXAM: no rashes or lesions noted Course Vital Signs: Vital signs: Vital Signs Temperature 98.0 F 01/11/25 19:56 Pulse Rate 73 01/11/25 20:11 Respiratory Rate 17 01/11/25 20:11 Blood Pressure 179/82 01/11/25 19:56 Pulse Oximetry 96 01/11/25 20:11 Oxygen Delivery Me thod Room Air 01/11/25 20:11 MDM - SOB/Dyspnea Medical Decision Making Patient presents here with possible atrial thrombus seen on echo today have spoke to cardiology head CT shows no signs of bleed will admit to hospitalist will start on blood thinners. Medical Records I reviewed the patient's medical records. Lab Data I reviewed the patient's lab results. 01/11/25 20:10 01/11/25 20:10 Labs/Radiology: Radiology Impressions Head CT 01/11/25 19:40 IMPRESSION: 1. No acute intracranial abnormality. ASSESSMENT: ASPECTS ([place] Stroke Program Early CT Score) is 10. Head/Neck CTA 01/11/25 19:40 IMPRESSION: 1. No evidence of large vessel occlusion or acute thrombosis in the head. 2. Prominence of the pineal gland raising the question of underlying mass. If not previously characterized, consider further evaluation with outpatient MRI. IMPRESSION: 1. No evidence of acute thrombosis or hemodynamically significant stenosis in the neck. REFERENCES: NASCET CRITERIA. The degree of stenosis in the cervical segment of the internal carotid artery is based on NASCET criteria. Normal is no stenosis. Mild is less than 50% stenosis. Moderate is 50-69% stenosis. Severe is 70% to 99% stenosis. Total occlusion is no detectable patent lumen. Chest X-Ray 01/11/25 20:06 IMPRESSION: 1. Small right-sided pleural effusion. Laboratory Results WBC 5.02 10^3/uL (3.29-11.43) 01/11/25 20:10 RBC 4.11 10^6/uL (3.85-5.65) 01/11/25 20:10 Hgb 12.80 g/dL (11.27-16.99) 01/11/25 20:10 Hct 38.5 % (37-53) 01/11/25 20:10 MCV 93.7 fl (82-101) 01/11/25 20:10 MCH 31.1 pg (27-33) 01/11/25 20:10 MCHC 33.2 g/dL (30-55) 01/11/25 20:10 RDW 14.3 % (12.1-15.1) 01/11/25 20:10 Plt Count 155 10^3/cmm (157-399) L 01/11/25 20:10 MPV 9.8 fL (7.4-10.4) 01/11/25 20:10 Neut % (Auto) 49.0 % 01/11/25 20:10 Lymph % (Auto) 36.1 % 01/11/25 20:10 [place] % (Auto) 13.3 % 01/11/25 20:10 Eos % (Auto) 0.8 % 01/11/25 20:10 Baso % (Auto) 0.6 % 01/11/25 20:10 Neut # (Auto) 2.46 10^3/uL (1.8-7.7) 01/11/25 20:10 Lymph # (Auto) 1.8 10^3/uL (0.8-4.8) 01/11/25 20:10 [place] # (Auto) 0.7 10^3/uL (0.2-0.9) 01/11/25 20:10 Eos # (Auto) 0.0 10^3/uL (0.0-0.8) 01/11/25 20:10 Baso # (Auto) 0.0 10^3/uL (0.0-0.1) 01/11/25 20:10 Nucleated RBC % (auto) 0 % 01/11/25 20:10 Nucleated RBCs # 0.0 /100WBC 01/11/25 20:10 PT 15.10 SECONDS (12.1-14.9) H 01/11/25 20:10 INR 1.11 (0.8-1.2) 01/11/25 20:10 Sodium 140 mmol/L (136-145) 01/11/25 20:10 Potassium 3.6 mmol/L (3.5-5.1) 01/11/25 20:10 Chloride 99 mmol/L (98-107) 01/11/25 20:10 Carbon Dioxide 30 mmol/L (22-29) H 01/11/25 20:10 Anion Gap 14.6 (5-19) 01/11/25 20:10 BUN 17 mg/dL (8-23) 01/11/25 20:10 Creatinine 0.7 mg/dL (0.7-1.2) 01/11/25 20:10 GFR Calculation Not Reportable 01/11/25 20:10 Glucose 107 mg/dL (65-115) 01/11/25 20:10 Calculated Osmolality 292 mOsm/kg (285-295) 01/11/25 20:10 Calcium 9.1 mg/dL (8.5-10.5) 01/11/25 20:10 Total Bilirubin 1.1 mg/dL (0.15-1.2) 01/11/25 20:10 AST 25 U/L (0-40) 01/11/25 20:10 ALT 20 U/L (0-41) 01/11/25 20:10 Alkaline Phosphatase 111 U/L (40-130) 01/11/25 20:10 Troponin T Baseline 21 ng/L (0-15) H 01/11/25 20:10 Total Protein 6.8 g/dL (6.6-8.7) 01/11/25 20:10 Albumin 4.7 g/dL (3.5-5.2) 01/11/25 20:10 Globulin 2.1 g/dL (1.3-4.6) 01/11/25 20:10 All radiology interpretation(s) finalized by discharge Discharge Plan Discharge Patient Disposition: Admitted As Inpatient Clinical Impression: Atrial thrombus Condition: Stable Coding Level of Care Code ED Furniture Sales Consultant for Eva Bowles
--- NOTE | 2025-01-11 20:10 | PC.NURSE ---
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 The patient reports that during an echocardiogram, the physician discovered a blood clot in his lung. The patient is not on anticoagulants due to arteriovenous malformation/cerebrovascular malformation. The patient has a history of atrial fibrillation.
[2025-01-11 20:11] VITALS: PULSE 73; RESP 17; O2SAT 96
[2025-01-11 20:18] LABS: Basophils % 0.6 %; Eosinophils % 0.8 %; Hematocrit 38.5 % (37-53); Lymphocytes # 1.8 10^3/uL (0.8-4.8); Lymphocytes % 36.1 %; Mean Corpuscular HGB Conc 33.2 g/dL (30-55); Mean Corpuscular Hemoglobin 31.1 pg (27-33); Mean Corpuscular Volume 93.7 fl (82-101); Mean Platelet Volume 9.8 fL (7.4-10.4); Monocytes # 0.7 10^3/uL (0.2-0.9); Monocytes % 13.3 %; Neutrophils # 2.46 10^3/uL (1.8-7.7); Nucleated Red Blood Cells % 0 %; Platelet Count 155 10^3/cmm (157-399); Red Blood Count 4.11 10^6/uL (3.85-5.65); Red Cell Distribution Width 14.3 % (12.1-15.1); White Blood Count 5.02 10^3/uL (3.29-11.43)
[2025-01-11 20:30] VITALS: BP 182/96; PULSE 88; RESP 16; O2SAT 95
[2025-01-11 20:32] LABS: INR 1.11 (0.8-1.2)
[2025-01-11 20:38] LABS: Alanine Aminotransferase 20 U/L (0-41); Albumin Level 4.7 g/dL (3.5-5.2); Alkaline Phosphatase 111 U/L (40-130); Anion Gap 14.6 (5-19); Aspartate Amino Transferase 25 U/L (0-40); Blood Urea Nitrogen 17 mg/dL (8-23); Calcium 9.1 mg/dL (8.5-10.5); Carbon Dioxide 30 mmol/L (22-29); Chloride 99 mmol/L (98-107); Creatinine Clr Calc Pharmacy 79.1333; Globulin 2.1 g/dL (1.3-4.6); Glucose 107 mg/dL (65-115); Osmolality Calculated 292 mOsm/kg (285-295); Potassium 3.6 mmol/L (3.5-5.1); Sodium 140 mmol/L (136-145); Total Bilirubin 1.1 mg/dL (0.15-1.2); Total Protein 6.8 g/dL (6.6-8.7); Troponin(5th) Baseline 21 ng/L (0-15)
[2025-01-11] MEDS: iohexol 350 mg/mL 500 mL Btl (per mL) IV (20:45)
[2025-01-11 21:30] VITALS: PULSE 72; RESP 22; O2SAT 97
[2025-01-11] MEDS: enoxaparin 100 mg/mL Syringe 90 MG SUBCUT (21:33)
[2025-01-11 22:30] VITALS: BP 159/95; PULSE 60; RESP 14; O2SAT 95
--- NOTE | 2025-01-11 22:38 | ECG_ITS ---
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
--- NOTE | 2025-01-11 22:46 | PM.HP ---
Providers/Chief Complaint Primary Care Provider: Katie Otto NP Chief Complaint: Dr sent Blood Clot History of Present Illness King Perkins is a 84 year old male with history of CABG 2018, thoracentesis x 4 in 2018, chronic dyspnea on exertion, was sent to the ER from cardiology clinic after abnormal echo report. There is concern for right atrial mass versus thrombus, patient is not endorsing any fever, nausea, vomiting, diarrhea or chest pain. Stating that he does have chronic dyspnea on exertion since his CABG. He is denying recent syncope, significant chest pain. Patient also has remote history of stroke without any residual deficit. History of A-fib not on anticoagulation secondary to GI bleed in the past and AVM history of A-fib with ablation,. Considers himself fairly active for his age. He is not diabetic. In the ER he is hemodynamically stable, he has received therapeutic Lovenox, plan for transesophageal echo in the morning EKG sinus rhythm with PVCs, troponin without significant elevation, serial troponin EKG requested Review of Systems Const: Denies: change in weight Eyes: Denies: change in vision ENMT: Denies: throat pain Card: Reports: palpitations Resp: Reports: dyspnea GI: Denies: abdominal pain : Denies: flank pain Musc: Denies: neck pain Medications/Allergies Home Medications ?Medication ?Instructions ?Recorded ?Confirmed ?Last Taken ?Type cholecalciferol (vitamin D3) 25 25 mcg PO DAILY 07/28/23 01/11/25 12/30/23 History mcg (1,000 unit) capsule (Vitamin D3) coenzyme Q10 30 mg capsule 30 mg PO DAILY 07/28/23 01/11/25 12/30/23 History cyanocobalamin (vitamin B-12) 50 50 mcg PO DAILY 07/28/23 01/11/25 12/30/23 History mcg tablet (Vitamin B-12) furosemide 20 mg tablet 20 mg PO BID 07/28/23 01/11/25 12/30/23 History levothyroxine 25 mcg tablet 25 mcg PO DAILY 07/28/23 01/11/25 12/30/23 History rosuvastatin 20 mg tablet 20 mg PO DAILY 07/28/23 01/11/25 12/30/23 History tamsulosin 0.4 mg capsule 0.4 mg PO DAILY 07/28/23 01/11/25 12/30/23 History multivitamin 1 tab PO DAILY 12/09/23 01/11/25 12/30/23 History lisinopril 20 mg tablet 20 mg PO BID 11/25/24 01/11/25 Unknown History potassium chloride 10 mEq 10 meq PO BID 11/25/24 01/11/25 Unknown History tablet,extended release hydrochlorothiazide 12.5 mg tablet 12.5 mg PO DAILY #90 tabs 12/02/24 01/11/25 Unknown Rx Allergies Allergy/AdvReac Type Severity Reaction Status Date / Time No Known Allergies Allergy Verified 01/11/25 20:00 PFSH Acute PFSH: Medical History (Updated 01/11/25 @ 22:49 by Son Arellano MD) Atrial fibrillation AVM (arteriovenous malformation) Urinary incontinence Urinary catheter in place Hernia Surgical History Hx of umbilical hernia repair 09/12/23 Dr Allen History of open heart surgery History of quadruple bypass Social History Smoking and tobacco/nicotine status: never used tobacco/nicotine Vitals/I&O/Wt Last Vital Signs Temp 98.0 F 01/11/25 19:56 Pulse 73 01/11/25 20:11 Resp 17 01/11/25 20:11 BP 179/82 01/11/25 19:56 Pulse Ox 96 01/11/25 20:11 O2 Del Method Room Air 01/11/25 20:11 Weight last 48 hrs Weight 91.172 kg Physical Exam Narrative: Euvolemic GCS 15 Sinus rhythm Hemodynamically stable On room air Abdomen soft Nonfocal neuroexam S1, S2 No active distress No active chest pain AOx4 Data 01/11/25 20:10 01/11/25 20:10 A&P Assessment and plan (1) Atrial thrombus: (2) CAD (coronary artery disease): Qualifiers: Coronary Disease-Associated Artery/Lesion type: citizen [place] artery [place] vs. transplanted heart: citizen [place] heart Associated angina: without angina Qualified Code(s): I25.10 - Atherosclerotic heart disease of citizen [place] coronary artery without angina pectoris (3) Atrial fibrillation: Qualifiers: Atrial fibrillation type: paroxysmal Qualified Code(s): I48.0 - Paroxysmal atrial fibrillation (4) Exertional shortness of breath: (5) Chronic pleural effusion: Plan Concern for atrial thrombus versus mass Patient has been started on therapeutic Lovenox N.p.o. after midnight Trans esophageal echo planned in the morning Cardiology will be consulted No active chest pain EKG without ischemic or infarctive changes EKG showing multiple PVCs Currently in sinus rhythm has history of A-fib Patient not on any anticoagulating agent secondary to GI bleed and AVM CTA head and neck unremarkable Patient consider himself fairly active for his age, attends 3 sessions of senior cardio workout in a week Hypertension: Continue antibiotic regimen Chronic pleural effusion, patient denies any previous history of any cancer History of CABG 2017, no active chest pain Full code DVT prophylaxis covered with therapeutic Lovenox N.p.o. after midnight PDMP PDMP Reviewed: Not Reviewed Attestations Medical Necessity Statement*: Anticipating discharge within 24 to 48 hours Diagnoses Atrial thrombus I51.3 Coronary artery disease involving citizen [place] coronary artery of citizen [place] heart without angina pectoris I25.10 Coronary Disease-Associated Artery/Lesion type: citizen [place] artery [place] vs. transplanted heart: citizen [place] heart Associated angina: without angina Paroxysmal atrial fibrillation I48.0 Atrial fibrillation type: paroxysmal Exertional shortness of breath R06.02 Chronic pleural effusion J90
[2025-01-11 22:52] LABS: Troponin 5 2HR 20.85 ng/L (0-15)
[2025-01-11 22:59] LABS: Troponin 5 2HR Delta -0.15 ABS# (0-10)
[2025-01-11 23:30] VITALS: BP 162/99; PULSE 67; RESP 13; O2SAT 90
[2025-01-12] VITALS (38 sets, daily range): BP systolic 146–173; BP diastolic 68–103; PULSE 53–72; RESP 12–27; TEMP 36.7–36.8; O2SAT 90–99; BMI 27.5
[2025-01-12 03:47] LABS: Troponin 5 6HR 21.68 ng/L (0-15); Troponin 5 6HR Delta 0.68 ng/L (0-12)
[2025-01-12 03:57] LABS: Anion Gap 13.1 (5-19); Blood Urea Nitrogen 14 mg/dL (8-23); Calcium 8.7 mg/dL (8.5-10.5); Carbon Dioxide 29 mmol/L (22-29); Chloride 101 mmol/L (98-107); Creatinine Clr Calc Pharmacy 80.3985; Glucose 99 mg/dL (65-115); Magnesium 2.3 mg/dL (1.7-2.3); Osmolality Calculated 291 mOsm/kg (285-295); Potassium 3.1 mmol/L (3.5-5.1); Sodium 140 mmol/L (136-145)
--- NOTE | 2025-01-12 04:37 | ECG_ITS ---
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
[2025-01-12] MEDS: enoxaparin 100 mg/mL Syringe 90 MG SUBCUT (05:35)
[2025-01-12] MEDS: levothyroxine 25 mcg Tablet PO (05:35)
[2025-01-12] MEDS: sodium chloride 0.9% 1,000 ML 30 ML IV (08:00)
--- NOTE | 2025-01-12 09:30 | ANES.PREANE2 ---
Pre-Anesthetic Assessment Height/Weight: Height 1.85 m Weight 94.546 kg Temp Pulse Resp BP Pulse Ox O2 Del Method 98.3 F 66 14 160/74 97 Room Air 01/12/25 07:27 01/12/25 07:27 01/12/25 07:27 01/12/25 07:27 01/12/25 07:27 01/12/25 07:27 PIPE Familial anesthetic complications: None Was Beta Haydee taken within 24 hours: N/A Was Clonidine taken within 24 hours: N/A Last intake: > 8hrs Social No alcohol and No tobacco Exam alert, oriented x 3, clear to auscultation bilaterally and regular rate & rhythm Airway Mallampati: Class II Dentition: full Pulmonary Shortness of Breath CV/HEM Atrial Fibrillation and Coronary Artery Disease (cabg) atrial mass Anesthetic Plan ASA status: 3 Anesthesia: MAC Risk of > 500 ml blood loss (7ml/kg in children): No Medications/Allergies Home Medications ?Medication ?Instructions ?Recorded ?Confirmed ?Last Taken ?Type cyanocobalamin (vitamin B-12) 50 50 mcg PO DAILY 07/28/23 01/12/25 12/30/23 History mcg tablet (Vitamin B-12) furosemide 20 mg tablet 20 mg PO BID 07/28/23 01/12/25 01/11/25 History levothyroxine 25 mcg tablet 25 mcg PO DAILY 07/28/23 01/12/25 01/12/25 History rosuvastatin 20 mg tablet 20 mg PO DAILY 07/28/23 01/12/25 01/11/25 History tamsulosin 0.4 mg capsule 0.4 mg PO DAILY 07/28/23 01/12/25 01/11/25 History potassium chloride 10 mEq 10 meq PO BID 11/25/24 01/12/25 01/11/25 History tablet,extended release hydrochlorothiazide 12.5 mg tablet 12.5 mg PO DAILY #90 tabs 12/02/24 01/12/25 01/11/25 Rx lisinopril 40 mg tablet 40 mg PO DAILY 01/12/25 01/12/25 01/11/25 History Allergies Allergy/AdvReac Type Severity Reaction Status Date / Time No Known Allergies Allergy Verified 01/11/25 20:00 Current Medications Generic Name Dose Route Start Last Admin Trade Name Freq PRN Reason Stop Dose Admin Enoxaparin Sodium 90 mg 01/12/25 07:00 01/12/25 05:35 Enoxaparin 100 Mg/Ml Syringe SUBCUT 90 mg Q12H WENDY Administration Levothyroxine Sodium 25 mcg 01/12/25 06:00 01/12/25 05:35 Levothyroxine 25 Mcg Tablet PO 25 mcg DAILY@0600 WENDY Administration PFSH Anesthesia Medical History (Updated 01/11/25 @ 22:49 by Son Arellano MD) Atrial fibrillation AVM (arteriovenous malformation) Urinary incontinence Urinary catheter in place Hernia Surgical History Hx of umbilical hernia repair 09/12/23 Dr Allen History of open heart surgery History of quadruple bypass Social History Smoking and tobacco/nicotine status: never used tobacco/nicotine Data Anesthesia 01/11/25 20:10 01/12/25 02:48 Short CBC 01/11/25 Range/Units 20:10 WBC 5.02 (3.29-11.43) 10^3/uL Hgb 12.80 (11.27-16.99) g/dL Hct 38.5 (37-53) % MCV 93.7 (82-101) fl Plt Count 155 L (157-399) 10^3/cmm Neut % (Auto) 49.0 % Neut # (Auto) 2.46 (1.8-7.7) 10^3/uL BMP 01/11/25 01/12/25 20:10 02:48 Sodium 140 140 Potassium 3.6 3.1 L Chloride 99 101 Carbon Dioxide 30 H 29 BUN 17 14 Creatinine 0.7 0.6 L Glucose 107 99 Calcium 9.1 8.7 Cardiac Enzymes 01/11/25 01/11/25 01/12/25 Range/Units 20:10 22:30 02:48 Troponin T Baseline 21 H (0-15) ng/L Troponin T 120 Minute 20.85 H (0-15) ng/L Delta Troponin T -0.15 L (0-10) ABS# Troponin T Hi Sens 6Hr 21.68 H (0-15) ng/L Troponin T Hi Sens 6Hr Delta 0.68 (0-12) ng/L Liver Function 01/11/25 Range/Units 20:10 Total Bilirubin 1.1 (0.15-1.2) mg/dL AST 25 (0-40) U/L ALT 20 (0-41) U/L Alkaline Phosphatase 111 (40-130) U/L Albumin 4.7 (3.5-5.2) g/dL Coags 01/11/25 01/12/25 20:10 02:48 PT 15.10 H INR 1.11 C-Reactive Protein 3.0 Cardiac Studies: Echocardiogram 01/11/25
[2025-01-12] MEDS: hydroCHLOROthiazide 25 mg Tablet 12.5 MG PO (10:18)
[2025-01-12] MEDS: lisinopril 20 mg Tablet PO (10:18)
[2025-01-12] MEDS: tamsulosin 0.4 mg Capsule PO (10:18)
--- NOTE | 2025-01-12 10:49 | USCV_ITS ---
King Perkins Age: 84 Gender: M : 1940 Exam Date: 01/12/2025 14:36 Ordering Phys: Merlyn Zapata NP Technologist: JORDON [place] [facility] [place]: [place] HISTORY: Lower extremity swelling. PROCEDURES: Venous duplex imaging was performed in bilateral lower extremities. The following venous structures were evaluated: common femoral vein, profunda vein, proximal portion of the greater saphenous vein, superficial femoral vein, and the popliteal vein. In addition, the posterior tibial and peroneal trunk were evaluated. Serial compression, augmentation maneuvers, and spectral Doppler flow evaluation were performed. FINDINGS: No evidence of DVT seen in any vessel visualized at this time. Gross reflux seen on standard augmentation and may suggest venous insufficiency. CONCLUSIONS No evidence of right lower extremity DVT. No evidence of left lower extremity DVT. Bilateral reflux suggesting venous insuffiency Won Zayas MD (Electronically Signed) Final Date: 12 January 2025 15:50 S
--- NOTE | 2025-01-12 10:51 | US_ITS ---
WS: [id number] RENAL ULTRASOUND HISTORY: Rule out renal cell carcinoma COMPARISON: None available. TECHNIQUE: 2-D and color Doppler imaging of the kidney submitted. Right kidney: 9.1 cm x 5.5 cm x 5.1 cm. Cortex: 1.0 cm Low normal size kidney. Mildly lobulated cortex. No mass identified. Left kidney: 12.1 cm x 4.7 cm x 5.4 cm. Cortex: 1.2 cm Normal size kidney. Exophytic mass with low-level echoes and through transmission from the lower pole measures 4.1 x 4.0 x 4.4 cm. Aorta: Normal. Urinary Bladder: Markedly distended urinary bladder. US/US renal BI* [id number] IMPRESSION: 1. No renal atrophy or hydronephrosis. 2. Cystic mass lower pole LEFT kidney with low-level echoes. There is through transmission. Consistent with a benign cyst measuring 4.4 cm.
--- NOTE | 2025-01-12 11:52 | P.CONIM_ITS ---
<Statement entered by Son Ramirez MD - 01/12/25 22:27> Patient was evaluated and cared for in conjunction with an advanced practice practitioner. I personally examined the patient and reviewed the chart and all pertinent data including imaging, telemetry, and laboratory results. I discussed the patient in detail with the advanced practice practitioner. Please see their note for complete H&P testing result and agreed upon plan of care for the patient. Patient underwent transesophageal echocardiogram which ruled out intracardiac thrombus, no suspicious intracardiac mass or thrombus seen on PIPE, most likely it was an artifact on 2D echo. Blood pressure not well-controlled GENERAL: Patient is alert, awake and oriented x3. HEART: Regular S1 and S2. No murmur, rub or gallop. LUNGS: Clear to auscultate bilaterally. CENTRAL NERVOUS SYSTEM: Grossly nonfocal. EXTREMITIES: Lower extremities with out edema bilaterally. Assessment and plan Assessment and plan Right atrial thrombus/mass seen on transthoracic echo and the patient with history of brain AVM high risk for bleeding Uncontrolled hypertension Patient underwent transesophageal echocardiogram which ruled out intracardiac mass or thrombus. CTA of the head did not show any AVMs Discontinue Lovenox Optimize medical management to control blood pressure Add carvedilol and amlodipine which will be titrated Providers/Reason For Consult 2 Consulting Physician/Specialty*: Son Ramirez MD Reason for Consult*: Possible right atrial mass Requesting Physician: Dr. Arellano Attending Physician: Ronak Lundy Primary Care Provider: Katie Otto NP History of Present Illness History of Present Illness King Perkins is a 84 year old male with a history of A-fib not on anticoagulation because of prior brain bleed and AVM possible history of A-fib with ablation came in to the clinic yesterday due to patient was scheduled for routine echo. This echo was reviewed by Dr. Lowry which showed a possible right atrial mass or large thrombus. The Brain bleed and AVM happened over 20 years ago. No clipping was done. He denies any chest pain, shortness of breath, or s/s of DVT. Denies any abnormal weight loss. He was sent to the ER from the clinic to rule out atrial mass vs. large thrombus via PIPE. Dr. Lowry discussed with patient's neurology team, who stated if he did not have bleed, he could be placed on anticoagulation. CTA of the head showed no evidence of large vessel occlusion or acute thrombosis in the head. He was placed on Lovenox. Review of Systems 2 Narrative: Consitutional: denies fever, chills, body aches, or changes in appetite, denies abnormal weight loss Eyes: Denies changes in vision Card: Denies chest pain, palpitations, irregular heart rhythm, edema, syncope, shortness of breath, orthopnea, leg pain with exertion Resp: Denies shortness of breath, denies hemoptysis, denies cough GI: denies abdominal pain, denies nausea or voimting, denies blood in stool : denies blood in urine, denies dysuria Musc: Denies extremity pain, denies limited range of motion or recent injury Skin: Denies rash, lesions, or wounds, denies changes to skin color Neuro: Denies nubmness in extremities, h/a, s/s of stroke Yung: Denies easy bruiding/bleeding Medications/Allergies Home Medications ?Medication ?Instructions ?Recorded ?Confirmed ?Last Taken ?Type cyanocobalamin (vitamin B-12) 50 50 mcg PO DAILY 07/2801/12/25 12/30/23 History mcg tablet (Vitamin B-12) furosemide 20 mg tablet 20 mg PO BID 07/28/2301/11/25 History levothyroxine 25 mcg tablet 25 mcg PO DAILY 07/28/23 0 01/12/25 01/12/25 History rosuvastatin 20 mg tablet 20 mg PO DAILY 07/28/2301/0201/11/25 History tamsulosin 0.4 mg capsule 0.4 mg PO DAILY 07/28/2309/2801/11/25 History potassium chloride 10 mEq 10 meq PO BID 11/25/2401/1201/11/25 History tablet,extended release hydrochlorothiazide 12.5 mg tablet 12.5 mg PO DAILY #9 0 tabs 12/02/24 01/12/25 01/11/25 Rx lisinopril 40 mg tablet 40 mg PO DAILY 01/12/2501/0201/11/25 History Allergies Allergy/AdvReac Type Severity Reaction Status Date / Time No Known Allergies Allergy Verified 01/11/25 20:00 Current Medications Generic Name Dose Route Start Last Admin Trade Name Freq PRN Reason Stop Dose Admin Enoxaparin Sodium 90 mg 01/12/25 07:00 01/12/25 05:35 Enoxaparin 100 Mg/Ml Syringe SUBCUT 90 mg Q12H WENDY Administration Hydrochlorothiazide 12.5 mg 01/12/25 09:00 01/12/25 10:18 Hydrochlorothiazide 25 Mg Tablet PO 12.5 mg DAILY WENDY Administration Sodium Chloride 1,000 mls @ 30 mls/hr 01/12/25 07:45 01/12/25 10:17 Sodium Chloride 0.9% IV Infused .Q24H WENDY Infusion Levothyroxine Sodium 25 mcg 01/12/25 06:00 01/12/25 05:35 Levothyroxine 25 Mcg Tablet PO 25 mcg DAILY@0600 WENDY Administration Lisinopril 20 mg 01/12/25 09:00 01/12/25 10:18 Lisinopril 20 Mg Tablet PO 20 mg BID WENDY Administration Tamsulosin HCl 0.4 mg 01/12/25 09:00 01/12/25 10:18 Tamsulosin 0.4 Mg Capsule PO 0.4 mg DAILY WENDY Administration PFSH Acute 2 PFSH: Medical History (Updated 01/12/25 @ 12:02 by Merlyn Zapata NP) Atrial fibrillation AVM (arteriovenous malformation) Urinary incontinence Urinary catheter in place Hernia Surgical History Hx of umbilical hernia repair 09/12/23 Dr Allen History of open heart surgery History of quadruple bypass Social History Smoking and tobacco/nicotine status: never used tobacco/nicotine Vitals/I&O/Wt Last Vital Signs Temp 98.0 F 01/12/25 11:12 Pulse 63 01/12/25 11:12 Resp 17 01/12/25 11:12 BP 173/103 01/12/25 11:12 Pulse Ox 97 01/12/25 11:12 O2 Del Method Room Air 01/12/25 11:12 01/11/25 01/12/25 01/12/25 22:59 06:59 14:59 Intake Total 1000 / 1000 Balance 1000 / 1000 Weight last 48 hrs Weight 208 lb 7 oz Weight 208 lb 7 oz Weight 201 lb Physical Exam 2 Narrative: General: No apparent distress, healthy appearing, well nourished Neck: No carotid bruit bilaterally Muskuloskeletal: Full ROM Respiratory: Normal respiratory effort, clear to auscultation bilaterally throughout all lung artis, no use of accessory muscles Cardio: No JVD, regular rate, irregular rhythm, S1 S2 normal, no murmurs GI: Normal to inspection, nondistended Extremities: Full ROM, normal, normal capillary refill, 2+ nonpitting edema bilateral lower extremities Neuro: Alert and oriented x4, no focal motor deficits Psych: Affect normal, denies suicidal ideation, mental status grossly normal Skin: No rashes or lesions noted, no wounds Data 01/11/25 20:10 01/12/25 02:48 A&P Assessment and plan (1) Abnormal echocardiogram: (2) Lower extremity edema: (3) Atrial fibrillation: Qualifiers: Atrial fibrillation type: paroxysmal Qualified Code(s): I48.0 - Paroxysmal atrial fibrillation (4) AVM (arteriovenous malformation) brain: (5) Uncontrolled hypertension: Plan PIPE risks and benefits was discussed with the patient to rule out atrial thrombus including risks and benefits of the procedure by Dr. Ramirez. Patient agreed to proceed. Patient had PIPE this morning that was negative for atrial thrombus. This could have been shadowing or artifact seen on the transthoracic echo. It was seen that he had previous atrial appendage ligation in the past. At this time due to higher risk of bleeding with hx of brain bleed and AVM, will hold off on anticoagulation for afib. Due to uncontrolled hypertension and lower extremity edema, will get renal US to rule out any type of renal cell carcinoma as well as rule out DVT. Will add amlodpine 5 mg BID for hypertension. If these tests are negative, patient may be discharged home. Thank you, Dr. Lundy, for allowing us to care for this very pleasant gentleman. PDMP PDMP Reviewed: Not Reviewed Consult Attestations 2 Medical Necessity Statement: Deferred to primary. Coding Level of Care Code Acute Code for Chg Fwd Diagnoses Abnormal echocardiogram R93.1 Lower extremity edema R60.0 Paroxysmal atrial fibrillation I48.0 Atrial fibrillation type: paroxysmal AVM (arteriovenous malformation) brain Q28.2 Uncontrolled hypertension I10
[2025-01-12] MEDS: potassium chloride ER 20 mEq Tablet PO ×2 (15:22→15:23)
--- NOTE | 2025-01-12 15:36 | PM.DCS ---
Discharge Providers Date of Admission: 01/12/25 00:09 Date of Discharge: January 12, 2025 Attending Provider at Admission: Son Arellano MD Attending Provider at Discharge: Ronak Lundy Primary Care Provider: Katie Otto NP Diagnoses at Discharge Discharge Diagnosis (1) Abnormal echocardiogram: Status: Acute (2) Lower extremity edema: Status: Acute (3) Atrial fibrillation: Status: Acute Qualifiers: Atrial fibrillation type: paroxysmal Qualified Code(s): I48.0 - Paroxysmal atrial fibrillation (4) AVM (arteriovenous malformation) brain: Status: Acute (5) Uncontrolled hypertension: Status: Acute Reason for Visit Reason for Visit: Dr magana Blood Clot Brief History: King Perkins is a 84 year old male with history of CABG 2018, thoracentesis x 4 in 2018, chronic dyspnea on exertion, was sent to the ER from cardiology clinic after abnormal echo report. There is concern for right atrial mass versus thrombus, patient is not endorsing any fever, nausea, vomiting, diarrhea or chest pain. Stating that he does have chronic dyspnea on exertion since his CABG. He is denying recent syncope, significant chest pain. Patient also has remote history of stroke without any residual deficit. History of A-fib not on anticoagulation secondary to GI bleed in the past and AVM history of A-fib with ablation,. Considers himself fairly active for his age. He is not diabetic. In the ER he is hemodynamically stable, he has received therapeutic Lovenox, plan for transesophageal echo in the morning EKG sinus rhythm with PVCs, troponin without significant elevation, serial troponin EKG requested Hospital Course Hospital Course He was admitted and started on anticoagulation with Lovenox. He underwent PIPE which did not reveal any intracardiac clot. For further assessment cardiology additionally obtained lower extremity duplex and renal ultrasound to exclude any additional potential sources of VTE. He was also started amlodipine twice daily for hypertension. Physical Exam Const: COMMON NORMALS: patient oriented x3 and alert GENERAL APPEARANCE: cooperative ORIENTATION/CONSCIOUSNESS: Yes awake HENMT: COMMON NORMALS: oropharynx normal Neck/C-Spine: COMMON NORMALS: no JVD Resp: COMMON NORMALS: normal respiratory effort and clear to auscultation bilaterally AUSCULTATION: clear to auscultation bilaterally Cardio: COMMON NORMALS: no JVD, regular rhythm, S1 normal heart sound present, S2 normal heart sound present and No murmurs present (Cardio) RHYTHM: regular rhythm HEART SOUNDS: S1 normal heart sound present and S2 normal heart sound present GI: COMMON NORMALS: Normal to inspection, nondistended, normoactive bowel sounds present, Soft to palpation and non-tender PALPATION: Yes Soft to palpation Extremity: COMMON NORMALS: no joint enlargement and no pedal edema Neuro: COMMON NORMALS: patient oriented x3 and moves all extremities SENSORIUM/ORIENTATION: Yes alert Skin: COMMON NORMALS: no rashes or lesions noted GENERAL SKIN EXAM: no rashes or lesions noted Discharge Data Studies Completed and Pending Completed Studies During Hospitalization Category Date Time Status CT head wo con* [id number] Stat Cat Scan 01/11/25 19:40 Completed CTA head neck [CT angio headneck* [id number]] Stat Cat Scan 01/11/25 19:40 Completed CXRP [XR chest 1V portable [id number]] Stat Exams 01/11/25 20:06 Completed Pending at discharge Category [place] [id number] Routine Ultrasound 01/12/25 10:49 Taken CV. echo transesophageal [id number] Routine Ultrasound 01/12/25 08:00 Taken US renal BI* [id number] Routine Ultrasound 01/12/25 10:51 Taken Radiology Impressions Head CT 01/11/25 19:40 IMPRESSION: 1. No acute intracranial abnormality. ASSESSMENT: ASPECTS ([place] Stroke Program Early CT Score) is 10. ADDENDUM: 01/11/252123 The findings were verbally communicated by telephone with Dr. FUNEZ at 9:21 PM CDT on 01/11/2025. Head/Neck CTA 01/11/25 19:40 IMPRESSION: 1. No evidence of large vessel occlusion or acute thrombosis in the head. 2. Prominence of the pineal gland raising the question of underlying mass. If not previously characterized, consider further evaluation with outpatient MRI. IMPRESSION: 1. No evidence of acute thrombosis or hemodynamically significant stenosis in the neck. REFERENCES: NASCET CRITERIA. The degree of stenosis in the cervical segment of the internal carotid artery is based on NASCET criteria. Normal is no stenosis. Mild is less than 50% stenosis. Moderate is 50-69% stenosis. Severe is 70% to 99% stenosis. Total occlusion is no detectable patent lumen. ADDENDUM: 01/11/252123 The findings were verbally communicated by telephone with Dr. FUNEZ at 9:21 PM CDT on 01/11/2025. Chest X-Ray 01/11/25 20:06 IMPRESSION: 1. Small right-sided pleural effusion. Radiology Impressions Head CT 01/11/25 19:40 IMPRESSION: 1. No acute intracranial abnormality. ASSESSMENT: ASPECTS ([place] Stroke Program Early CT Score) is 10. ADDENDUM: 01/11/252123 The findings were verbally communicated by telephone with Dr. FUNEZ at 9:21 PM CDT on 01/11/2025. Head/Neck CTA 01/11/25 19:40 IMPRESSION: 1. No evidence of large vessel occlusion or acute thrombosis in the head. 2. Prominence of the pineal gland raising the question of underlying mass. If not previously characterized, consider further evaluation with outpatient MRI. IMPRESSION: 1. No evidence of acute thrombosis or hemodynamically significant stenosis in the neck. REFERENCES: NASCET CRITERIA. The degree of stenosis in the cervical segment of the internal carotid artery is based on NASCET criteria. Normal is no stenosis. Mild is less than 50% stenosis. Moderate is 50-69% stenosis. Severe is 70% to 99% stenosis. Total occlusion is no detectable patent lumen. ADDENDUM: 01/11/252123 The findings were verbally communicated by telephone with Dr. FUNEZ at 9:21 PM CDT on 01/11/2025. Chest X-Ray 01/11/25 20:06 IMPRESSION: 1. Small right-sided pleural effusion. Renal Ultrasound 01/12/25 10:51 IMPRESSION: 1. No renal atrophy or hydronephrosis. 2. Cystic mass lower pole LEFT kidney with low-level echoes. There is through transmission. Consistent with a benign cyst measuring 4.4 cm. Laboratory Results WBC 5.02 10^3/uL (3.29-11.43) 01/11/25 20:10 RBC 4.11 10^6/uL (3.85-5.65) 01/11/25 20:10 Hgb 12.80 g/dL (11.27-16.99) 01/11/25 20:10 Hct 38.5 % (37-53) 01/11/25 20:10 MCV 93.7 fl (82-101) 01/11/25 20:10 MCH 31.1 pg (27-33) 01/11/25 20:10 MCHC 33.2 g/dL (30-55) 01/11/25 20:10 RDW 14.3 % (12.1-15.1) 01/11/25 20:10 Plt Count 155 10^3/cmm (157-399) L 01/11/25 20:10 MPV 9.8 fL (7.4-10.4) 01/11/25 20:10 Neut % (Auto) 49.0 % 01/11/25 20:10 Lymph % (Auto) 36.1 % 01/11/25 20:10 [place] % (Auto) 13.3 % 01/11/25 20:10 Eos % (Auto) 0.8 % 01/11/25 20:10 Baso % (Auto) 0.6 % 01/11/25 20:10 Neut # (Auto) 2.46 10^3/uL (1.8-7.7) 01/11/25 20:10 Lymph # (Auto) 1.8 10^3/uL (0.8-4.8) 01/11/25 20:10 [place] # (Auto) 0.7 10^3/uL (0.2-0.9) 01/11/25 20:10 Eos # (Auto) 0.0 10^3/uL (0.0-0.8) 01/11/25 20:10 Baso # (Auto) 0.0 10^3/uL (0.0-0.1) 01/11/25 20:10 Nucleated RBC % (auto) 0 % 01/11/25 20:10 Nucleated RBCs # 0.0 /100WBC 01/11/25 20:10 PT 15.10 SECONDS (12.1-14.9) H 01/11/25 20:10 INR 1.11 (0.8-1.2) 01/11/25 20:10 Sodium 140 mmol/L (136-145) 01/12/25 02:48 Potassium 3.1 mmol/L (3.5-5.1) L 01/12/25 02:48 Chloride 101 mmol/L (98-107) 01/12/25 02:48 Carbon Dioxide 29 mmol/L (22-29) 01/12/25 02:48 Anion Gap 13.1 (5-19) 01/12/25 02:48 BUN 14 mg/dL (8-23) 01/12/25 02:48 Creatinine 0.6 mg/dL (0.7-1.2) L 01/12/25 02:48 GFR Calculation Not Reportable 01/12/25 02:48 Glucose 99 mg/dL (65-115) 01/12/25 02:48 Calculated Osmolality 291 mOsm/kg (285-295) 01/12/25 02:48 Calcium 8.7 mg/dL (8.5-10.5) 01/12/25 02:48 Magnesium 2.3 mg/dL (1.7-2.3) 01/12/25 02:48 Total Bilirubin 1.1 mg/dL (0.15-1.2) 01/11/25 20:10 AST 25 U/L (0-40) 01/11/25 20:10 ALT 20 U/L (0-41) 01/11/25 20:10 Alkaline Phosphatase 111 U/L (40-130) 01/11/25 20:10 Troponin T Baseline 21 ng/L (0-15) H 01/11/25 20:10 Troponin T 120 Minute 20.85 ng/L (0-15) H 01/11/25 22:30 Delta Troponin T -0.15 ABS# (0-10) L 01/11/25 22:30 Troponin T Hi Sens 6Hr 21.68 ng/L (0-15) H 01/12/25 02:48 Troponin T Hi Sens 6Hr Delta 0.68 ng/L (0-12) 01/12/25 02:48 C-Reactive Protein 3.0 mg/L (0.0-4.9) 01/12/25 02:48 Total Protein 6.8 g/dL (6.6-8.7) 01/11/25 20:10 Albumin 4.7 g/dL (3.5-5.2) 01/11/25 20:10 Globulin 2.1 g/dL (1.3-4.6) 01/11/25 20:10 Vitals Last Vital Signs Temp 98.0 F 01/12/25 11:12 Pulse 72 01/12/25 15:13 Resp 16 01/12/25 15:13 BP 161/88 01/12/25 15:13 Pulse Ox 96 01/12/25 15:13 O2 Del Method Room Air 01/12/25 15:13 O2 Flow Rate 2 01/12/25 12:45 Discharge Plan Discharge Patient Disposition: Home Condition: Stable Prescriptions: New amlodipine 5 mg Tablet 5 mg PO BID Qty: 180 0RF Continued hydrochlorothiazide 12.5 mg tablet 12.5 mg PO DAILY Qty: 90 3RF levothyroxine 25 mcg Tablet 25 mcg PO DAILY Vitamin B-12 50 mcg Tablet 50 mcg PO DAILY tamsulosin 0.4 mg capsule 0.4 mg PO DAILY furosemide 20 mg tablet 20 mg PO BID rosuvastatin 20 mg tablet 20 mg PO DAILY potassium chloride 10 mEq tablet extended release 10 meq PO BID lisinopril 40 mg tablet 40 mg PO DAILY Discharge Orders: Discharge Order (Routine); Ordered 01/12/25 Ordered By: Ronak Lundy Referrals: Katie Otto NP [Primary Care Provider] - 01/21/25 3:00 pm Discharge Diet: Cardiac Patient Instructions: Amlodipine (By mouth), A-fib (Atrial Fibrillation) (DC), Hypertension (DC), Edema (DC), Opioid Safety Activity Restrictions/Additional Instructions: Follow-up with your primary doctor for reassessment and to follow-up on final results of kidney ultrasound as well as lower extremity venous duplex. Seek medical attention in case of worsening or new concerning symptoms. Discharge Attestations Time Spent in Discharge Care*: greater than 30 min Quality Metrics Clinical Quality Measures [ No reported AMI, CVA or VTE this stay] Coding Level of Care Code 14399 Total time (in minutes) for Discharge: 50 Diagnoses Abnormal echocardiogram R93.1 Lower extremity edema R60.0 Paroxysmal atrial fibrillation I48.0 Atrial fibrillation type: paroxysmal AVM (arteriovenous malformation) brain Q28.2 Uncontrolled hypertension I10
--- NOTE | 2025-01-12 17:22 | PC.NURSE ---
discharge instructions given and explained.pt and spouse verb understanding of instructions.discharged via w/c to exit at this time.daughter to drive pt home
== END 2025-01-12 17:22 | disposition home or self-care (01) ==
LOC: ER 21:11 → CSU 01-12 01:10
PROVIDERS: Admitting Provider Internal Medicine; Emergency Provider Emergency Medicine; PCP Nurse Practitioner Family; Visit Provider Internal Medicine
DX: R93.1 Abnormal findings on diagnostic imaging of heart and coronary circulation (principal); I25.10 Atherosclerotic heart disease of native coronary artery without angina pectoris; I48.0 Paroxysmal atrial fibrillation; R60.0 Localized edema; I10 Essential (primary) hypertension; J90 Pleural effusion, not elsewhere classified; Z79.899 Other long term (current) drug therapy; Z79.890 Hormone replacement therapy; Z88.8 Allergy status to other drugs, medicaments and biological substances; Z95.1 Presence of aortocoronary bypass graft
CPT/HCPCS: 36415; 70450; 70496; 70498; 71045; 76770; 80048; 80053; 83735; 84484; 85025; 85610; 86140; 93005; 93312; 93320; 93325; 93970; 96372; 99285; G0378; J1650; J2704; J7030

== ENCOUNTER → 2025-03-09 12:47 | Outpatient (BNVA) | payer MEDICARE, SELFPAY | PROVIDERS: PCP Nurse Practitioner Family; Visit Provider Nurse Practitioner Family | DX: S50.911A Unspecified superficial injury of right forearm, initial encounter (principal); I87.2 Venous insufficiency (chronic) (peripheral); L98.8 Other specified disorders of the skin and subcutaneous tissue; D69.2 Other nonthrombocytopenic purpura; L57.8 Other skin changes due to chronic exposure to nonionizing radiation; X32.XXXA Exposure to sunlight, initial encounter; L57.0 Actinic keratosis; L81.4 Other melanin hyperpigmentation; D18.01 Hemangioma of skin and subcutaneous tissue; Z08 Encounter for follow-up examination after completed treatment for malignant neoplasm; Z85.828 Personal history of other malignant neoplasm of skin; X58.XXXA Exposure to other specified factors, initial encounter | CPT/HCPCS: 17000; 99213 ==

== ENCOUNTER 2025-03-31 14:26 | Inpatient (IN) | payer MEDICARE, SELFPAY ==
[2025-03-31 14:36] VITALS: BP 152/76; PULSE 76; RESP 20; TEMP 36.7; O2SAT 94
--- NOTE | 2025-03-31 14:41 | ECG_ITS ---
[employer] I.[employer]. 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1940 Requested By: Steven Arechiga Order Number: [id number] Yessica MD: RAYMOND ALLEN Measurements Intervals [place] Rate: 77 P: 0 AL: 0 QRS: 93 QRSD: 114 T: 42 QT: 397 QTc: 452 Interpretive Statements ATRIAL FIBRILLATION WITH ABERRANT CONDUCTION OR VENTRICULAR PREMATURE COMPLEXES BORDERLINE RIGHT AXIS DEVIATION [QRS AXIS > 90] INCOMPLETE RIGHT BUNDLE BRANCH BLOCK [90+ ms QRS DURATION, TERMINAL R IN V1/V2, 40+ ms S IN I/aVL/V4/V5/V6] POSSIBLE ANTERIOR MYOCARDIAL INFARCTION , PROBABLY OLD [30 ms Q WAVE IN V3/V4, OR R < 0.2 mV IN V4] ABNORMAL RHYTHM ECG Compared to ECG 01/12/2025 04:37:42 Incomplete right bundle-branch block now present Right bundle-branch block no longer present Myocardial infarct finding still present Electronically Signed On 04-07-2025 22:48:17 CDT by RAYMOND ALLEN [id number]
--- NOTE | 2025-03-31 17:38 | XRR_ITS ---
PROCEDURE INFORMATION: Exam: XR Chest Exam date and time: 03/31/2025 5:40 PM Age: 84 years old Clinical indication: Dyspnea and other: Swelling; Additional info: Dyspnea, swelling TECHNIQUE: Imaging protocol: Radiologic exam of the chest. Views: 1 view. COMPARISON: CR XR chest 1V portable [id number] 01/11/2025 8:11 PM FINDINGS: Lungs: Loculated right lung base effusion. Compressive atelectasis of the lung base. Moderate pulmonary vasculature congestive changes. Pleural spaces: No sizable pneumothorax. Heart/Mediastinum: Cardiomegaly. Postsurgical changes of the mediastinum. Bones/joints: Unremarkable. XR/XR chest 1V portable [id number] IMPRESSION: As above.
--- NOTE | 2025-03-31 17:39 | ECG_ITS ---
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 Measurements Intervals [place] Rate: 83 P: 0 MS: 0 QRS: 258 QRSD: 114 T: 19 QT: 399 QTc: 470 Interpretive Statements ATRIAL FIBRILLATION WITH ABERRANT CONDUCTION OR VENTRICULAR PREMATURE COMPLEXES INDETERMINATE AXIS INCOMPLETE RIGHT BUNDLE BRANCH BLOCK [90+ ms QRS DURATION, TERMINAL R IN V1/V2, 40+ ms S IN I/aVL/V4/V5/V6] LEFT POSTERIOR FASCICULAR BLOCK [QRS AXIS > 109, INFERIOR Q] MINIMAL ST DEPRESSION [0.025+ mV ST DEPRESSION] Compared to ECG 03/31/2025 14:41:54 Indeterminate axis now present Left posterior fascicular block now present ST (T wave) deviation now present Myocardial infarct finding no longer present Electronically Signed On 04-06-2025 11:54:14 CDT by Td Lowry M.D. [id number] [id number]
[2025-03-31 18:00] VITALS: BP 163/83; PULSE 83; RESP 18; O2SAT 94
[2025-03-31 18:09] LABS: Basophils % 0.5 %; Eosinophils % 0.4 %; Hematocrit 33.6 % (37-53); Lymphocytes # 1.3 10^3/uL (0.8-4.8); Lymphocytes % 22.2 %; Mean Corpuscular HGB Conc 33.6 g/dL (30-55); Mean Corpuscular Hemoglobin 31.9 pg (27-33); Mean Corpuscular Volume 94.9 fl (82-101); Mean Platelet Volume 9.7 fL (7.4-10.4); Monocytes # 0.7 10^3/uL (0.2-0.9); Monocytes % 12.2 %; Neutrophils # 3.64 10^3/uL (1.8-7.7); Neutrophils % 64.5 %; Nucleated Red Blood Cells % 0 %; Platelet Count 154 10^3/cmm (157-399); Red Blood Count 3.54 10^6/uL (3.85-5.65); Red Cell Distribution Width 14.4 % (12.1-15.1); White Blood Count 5.64 10^3/uL (3.29-11.43)
--- NOTE | 2025-03-31 18:09 | W.ED.EXTPRO ---
HPI - Extremity Problem General: Chief complaint: Extremity Injury, Lower Stated complaint: SOB weakness in legs Time Seen by Provider: 03/31/25 17:35 History of Present Illness: 84 yo m with relevant pmh of quadruple bypass in 2018 presents with about 10 days of progressive b/l LE edema. It started in the LLE and then RLE. He is now dyspneic with exertion (exercises regularly). Denies orthopnea and PND. Take lasix 20mg po bid. States he did eat a lot of salt this weekend. PCP took him off hydrochlorothiazide put him on amlodipine (contributing to swelling?). No cp, sputum production, hx of DVT/PE, fever/chills, or any other symptoms. Associated symptoms: Deny chest pain, fever(s) or rash Related Data Home Medications ?Medication ?Instructions ?Recorded ?Confirmed cyanocobalamin (vitamin B-12) 50 50 mcg PO DAILY 07/28/23 01/12/25 mcg tablet (Vitamin B-12) furosemide 20 mg tablet 20 mg PO BID 07/28/23 01/12/25 levothyroxine 25 mcg tablet 25 mcg PO DAILY 07/28/23 01/12/25 rosuvastatin 20 mg tablet 20 mg PO DAILY 07/28/23 01/12/25 tamsulosin 0.4 mg capsule 0.4 mg PO DAILY 07/28/23 01/12/25 potassium chloride 10 mEq 10 meq PO BID 11/25/24 01/12/25 tablet,extended release lisinopril 40 mg tablet 40 mg PO DAILY 01/12/25 01/12/25 Previous Rx's ?Medication ?Instructions ?Recorded hydrochlorothiazide 12.5 mg tablet 12.5 mg PO DAILY #90 tabs 12/02/24 amlodipine 5 mg tablet 5 mg PO BID #180 tabs 01/12/25 Allergies Allergy/AdvReac Type Severity Reaction Status Date / Time No Known Allergies Allergy Verified 01/11/25 20:00 Review of Systems General: Reports: 10 or more systems reviewed and unremarkable except in HPI and below Const: Denies: fever(s), chills or body aches Eyes: Denies: change in vision ENMT: Denies: throat pain Card: Denies: chest pain or syncope Resp: Reports: other (diminished bases); Denies: dyspnea, productive cough or wheezing GI: Denies: abdominal pain, nausea, vomiting or diarrhea : Denies: flank pain, dysuria or urinary frequency Musc: Denies: neck pain or back pain Skin/Breast: Denies: rash or erythema Neuro: Denies: headache(s), numbness in extremities, weakness in extremities, lack of coordination or difficulty walking PFS ED PFSH: Medical History (Updated 03/31/25 @ 21:35 by Steven Arechiga MD) Atrial fibrillation AVM (arteriovenous malformation) Urinary incontinence Urinary catheter in place Hernia Surgical History (Updated 03/10/25 @ 00:00 by EULA Daniel) Hx of umbilical hernia repair 09/12/23 Dr Allen History of open heart surgery History of quadruple bypass Social History Smoking and tobacco/nicotine status: never used tobacco/nicotine Physical Exam Const: COMMON NORMALS: no limitations, alert and well nourished EXAM LIMITATIONS: no altered mental status HENMT: COMMON NORMALS: normocephalic, atraumatic and external ears normal HEAD & SCALP: normocephalic and atraumatic EXTERNAL EAR: Yes external ears normal MOUTH: no muffled voice Eye: COMMON NORMALS: EOMs intact bilaterally, conjunctivae normal and no scleral icterus CONJUNCTIVA: Yes conjunctivae normal Neck/C-Spine: COMMON NORMALS: no JVD GENERAL: Yes normal visual inspection and Yes trachea midline Resp: COMMON NORMALS: normal respiratory effort, No use of accessory muscles and clear to auscultation bilaterally AUSCULTATION: clear to auscultation bilaterally Cardio: COMMON NORMALS: no JVD and regular rate; negative for regular rhythm and negative for No murmurs present (Cardio) (murmur present) RATE: regular rate RHYTHM: abnormal rhythm HEART SOUNDS: Murmur heart sound present GI: COMMON NORMALS: Soft to palpation and non-tender PALPATION: Yes Soft to palpation and No Guarding due to palpation present (GI) Extremity: COMMON NORMALS: negative for no pedal edema (pitting edema both LEs) Neuro: COMMON NORMALS: moves all extremities, no focal motor deficits and no sensory deficits noted SENSORIUM/ORIENTATION: Yes alert SPEECH: speech normal Psych: COMMON NORMALS: mental status grossly normal, Normal thought process present, cooperative, normal affect and speech normal SPEECH: Yes normal speech THOUGHT PROCESS: Normal thought process present Skin: COMMON NORMALS: no rashes or lesions noted, turgor normal and no jaundice GENERAL SKIN EXAM: no rashes or lesions noted and turgor normal Course Vital Signs: Vital signs: Vital Signs Temperature 98.0 F 03/31/25 14:36 Pulse Rate 102 H 03/31/25 20:47 Respiratory Rate 28 H 03/31/25 20:47 Blood Pressure 159/83 03/31/25 20:47 Pulse Oximetry 88 L 03/31/25 20:47 Oxygen Delivery Me thod Room Air 03/31/25 20:47 MDM - Extremity (Nontraumatic) Medical Decision Making Differential diagnosis includes CHF exacerbation, renal failure, hypoalbuminemia, side effect from amlodipine, anemia, DVT, other. Patient has a normal work of breathing. Not requiring oxygen. Denies orthopnea or PND. Does endorse dyspnea on exertion EKG was obtained at 1441. The patient has atrial fibrillation, the ventricular rate 77, axis is probably within normal limits, the QRS is widened, there is a right bundle branch block pattern, there is delayed R wave progression through the precordium, there are some nonspecific ST changes. Chest x-ray 1 view EP interpretation Cardiomegaly, sternotomy wires, atrial appendage device, chronic changes around the base of the right pleura, infiltrate versus edema in the right lower lung base. Probable small right pleural effusion and small left pleural effusion. Update Patient does get tachypnea when he lays flat and actually develops hypoxia with an SPO2 of 88%. I spoke to the hospitalist. We looked over the chest x-ray together. The hospitalist wanted me to get a little bit more information via CAT scan of the chest. There is no senior net developer architect or CT surgeon here. We wanted to be sure that the patient was appropriate to stay here. The CAT scan was performed. The patient does have a chronic effusion and there is a consolidated area near the effusion. Dr. Mercer discussed with the radiologist who did not think that this was infectious. They also noted that the effusion has been present for years. They did not think this had much to do with the patient's admission here today. Therefore, the patient will be admitted for fluid overload. He is already been diuresing here after 60 mg of IV Lasix. Lab Data 03/31/25 17:53 03/31/25 17:53 Radiology Impressions Chest X-Ray 03/31/25 17:38 IMPRESSION: As above. Laboratory Results WBC 5.64 10^3/uL (3.29-11.43) 03/31/25 17:53 RBC 3.54 10^6/uL (3.85-5.65) L 03/31/25 17:53 Hgb 11.30 g/dL (11.27-16.99) 03/31/25 17:53 Hct 33.6 % (37-53) L 03/31/25 17:53 MCV 94.9 fl (82-101) 03/31/25 17:53 MCH 31.9 pg (27-33) 03/31/25 17:53 MCHC 33.6 g/dL (30-55) 03/31/25 17:53 RDW 14.4 % (12.1-15.1) 03/31/25 17:53 Plt Count 154 10^3/cmm (157-399) L 03/31/25 17:53 MPV 9.7 fL (7.4-10.4) 03/31/25 17:53 Neut % (Auto) 64.5 % 03/31/25 17:53 Lymph % (Auto) 22.2 % 03/31/25 17:53 [place] % (Auto) 12.2 % 03/31/25 17:53 Eos % (Auto) 0.4 % 03/31/25 17:53 Baso % (Auto) 0.5 % 03/31/25 17:53 Neut # (Auto) 3.64 10^3/uL (1.8-7.7) 03/31/25 17:53 Lymph # (Auto) 1.3 10^3/uL (0.8-4.8) 03/31/25 17:53 [place] # (Auto) 0.7 10^3/uL (0.2-0.9) 03/31/25 17:53 Eos # (Auto) 0.0 10^3/uL (0.0-0.8) 03/31/25 17:53 Baso # (Auto) 0.0 10^3/uL (0.0-0.1) 03/31/25 17:53 Nucleated RBC % (auto) 0 % 03/31/25 17:53 Nucleated RBCs # 0.0 /100WBC 03/31/25 17:53 Sodium 138 mmol/L (136-145) 03/31/25 17:53 Potassium 3.6 mmol/L (3.5-5.1) 03/31/25 17:53 Chloride 99 mmol/L (98-107) 03/31/25 17:53 Carbon Dioxide 23 mmol/L (22-29) 03/31/25 17:53 Anion Gap 19.6 (5-19) H 03/31/25 17:53 BUN 11 mg/dL (8-23) 03/31/25 17:53 Creatinine 0.6 mg/dL (0.7-1.2) L 03/31/25 17:53 GFR Calculation Not Reportable 03/31/25 17:53 Glucose 106 mg/dL (65-115) 03/31/25 17:53 Calculated Osmolality 286 mOsm/kg (285-295) 03/31/25 17:53 Calcium 8.7 mg/dL (8.5-10.5) 03/31/25 17:53 Total Bilirubin 1.6 mg/dL (0.15-1.2) H 03/31/25 17:53 AST 20 U/L (0-40) 03/31/25 17:53 ALT 12 U/L (0-41) 03/31/25 17:53 Alkaline Phosphatase 104 U/L (40-130) 03/31/25 17:53 Troponin T Baseline 16 ng/L (0-15) H 03/31/25 17:53 Troponin T 120 Minute 15.99 ng/L (0-15) H 03/31/25 19:35 Delta Troponin T -0.01 ABS# (0-10) L 03/31/25 19:35 NT-Pro-B Natriuret Pep 539 pg/mL (0-450) H 03/31/25 17:53 Total Protein 6.7 g/dL (6.6-8.7) 03/31/25 17:53 Albumin 4.4 g/dL (3.5-5.2) 03/31/25 17:53 Globulin 2.3 g/dL (1.3-4.6) 03/31/25 17:53 XR interpretation done by ED provider, pending radiology final review Discharge Plan Discharge Patient Disposition: Admitted As Inpatient Clinical Impression: CHF exacerbation, Chronic pleural effusion, Lower extremity edema, Medication side effect Condition: Stable Coding Level of Care Code ED Marketing Underwriter for Eva Bowles
[2025-03-31 18:26] LABS: Troponin(5th) Baseline 16 ng/L (0-15)
[2025-03-31 18:36] LABS: Alanine Aminotransferase 12 U/L (0-41); Albumin Level 4.4 g/dL (3.5-5.2); Alkaline Phosphatase 104 U/L (40-130); Anion Gap 19.6 (5-19); Aspartate Amino Transferase 20 U/L (0-40); Blood Urea Nitrogen 11 mg/dL (8-23); Calcium 8.7 mg/dL (8.5-10.5); Carbon Dioxide 23 mmol/L (22-29); Chloride 99 mmol/L (98-107); Globulin 2.3 g/dL (1.3-4.6); Glucose 106 mg/dL (65-115); NT Pro B Type Natriuretic Pept 539 pg/mL (0-450); Osmolality Calculated 286 mOsm/kg (285-295); Potassium 3.6 mmol/L (3.5-5.1); Sodium 138 mmol/L (136-145); Total Bilirubin 1.6 mg/dL (0.15-1.2); Total Protein 6.7 g/dL (6.6-8.7)
--- NOTE | 2025-03-31 19:12 | CTR_ITS ---
PROCEDURE INFORMATION: Exam: CTA Chest With Contrast Exam date and time: 03/31/2025 7:43 PM Age: 84 years old Clinical indication: Dyspnea and other: Le swelling; Additional info: Appearance of complex effusion on chest x-ray. , Need further information to inform treatment TECHNIQUE: Imaging protocol: Computed tomographic angiography of the chest with contrast. Exam focused on the arteries. 3D rendering (Not supervised by radiologist): MIP and/or 3D reconstructed images were created by the technologist. Radiation optimization: All CT scans at this facility use at least one of these dose optimization techniques: automated exposure control; mA and/or kV adjustment per patient size (includes targeted exams where dose is matched to clinical indication); or iterative reconstruction. Contrast material: OMNIPAQUE 350; Contrast volume: 100 ml; Contrast route: INTRAVENOUS (IV); COMPARISON: CR XR chest 1V portable [id number] 03/31/2025 5:40 PM RADIATION DOSE METRICS: Total DLP (mGy-cm): 404.8 FINDINGS: Pulmonary arteries: No main or lobar PE. The lower peripheral arteries are obscured in several places by mild motion as well as truncation and venous contamination artifacts. Large pulmonary arteries do suggest pulmonary hypertension. Aorta: Advanced diffuse vascular calcification noted. No aortic aneurysm. No aortic dissection. Lungs: Large area of right lower lung rounded atelectasis, scar, or less likely pneumonia. Mild venous congestion. Nanq-re-qednqvrt areas of diffuse interstitial edema or scarring. No definite pneumonia. Pleural spaces: Moderate loculated right pleural effusion with pleural thickening, chronic. Minute left pleural effusion. No pneumothorax. Heart: The heart is quite large. CABG. LAE closure device. Coronary arteries: Advanced coronary atherosclerotic calcifications are present. Lymph nodes: Mild mediastinal likely reactive lymphadenopathy noted. Bones/joints: Skeletal structures are age appropriate. No acute fracture is seen. Soft tissues: Mild anasarca. CT/CT angio chest [id number] IMPRESSION: 1. No definite or central PE. The peripheral arteries are limited as described. 2. Prominent area of right mid to lower lung rounded atelectasis or scar likely. Less likely consolidation, neplasm, or other etiologies. Recommend three-month follow-up. Follow with CV surgery. 3. Mild evidence of CHF or positive fluid balance. 4. Rldqb-jvcmajf-nnns-left pleural effusions. The the right one is complex and loculated. These are chronic and similar going back to at least December 2023. 5. A few other chronic/incidental findings above. THIS REPORT CONTAINS FINDINGS THAT MAY BE CRITICAL TO PATIENT CARE. The findings were verbally communicated via telephone conference at 9:49 PM CDT on 03/31/[address] Mercer. The findings were acknowledged and understood. Overall, the chronic right loculated effusion is very similar to 12/09/2023.
[2025-03-31] MEDS: FUROsemide 10 mg/mL SDV 10mL 60 MG IVP (19:23)
[2025-03-31 19:25] VITALS: BP 148/89; PULSE 75; RESP 21; O2SAT 93
--- NOTE | 2025-03-31 19:39 | ECG_ITS ---
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1940 Requested By: Steven Arechiga Order Number: [id number] Yessica MD: RAYMOND ALLEN Measurements Intervals [place] Rate: 83 P: 0 NV: 0 QRS: 229 QRSD: 112 T: 50 QT: 385 QTc: 455 Interpretive Statements ATRIAL FIBRILLATION WITH ABERRANT CONDUCTION OR VENTRICULAR PREMATURE COMPLEXES INDETERMINATE AXIS INCOMPLETE RIGHT BUNDLE BRANCH BLOCK [90+ ms QRS DURATION, TERMINAL R IN V1/V2, 40+ ms S IN I/aVL/V4/V5/V6] MODERATE ST DEPRESSION [0.05+ mV ST DEPRESSION] Compared to ECG 03/31/2025 19:26:55 Left posterior fascicular block no longer present ST (T wave) deviation still present Electronically Signed On 04-07-2025 22:55:58 CDT by RAYMOND ALLEN [email or web address]
[2025-03-31] MEDS: iohexol 350 mg/mL 500 mL Btl (per mL) IV (19:51)
[2025-03-31 20:02] LABS: Troponin 5 2HR 15.99 ng/L (0-15)
[2025-03-31 20:03] LABS: Troponin 5 2HR Delta -0.01 ABS# (0-10)
[2025-03-31 20:47] VITALS: BP 159/83; PULSE 102; RESP 28; O2SAT 88
--- NOTE | 2025-03-31 21:48 | PC.NURSE ---
Pt desats to 86% on Room air. Pt placed on 2l nc. Improvement to 93%
--- NOTE | 2025-03-31 21:51 | P.HP_ITS ---
Providers/Chief Complaint 2 Admitting Physician: Won Mercer MD Primary Care Provider: Katie Otto NP Chief Complaint: SOB weakness in legs History of Present Illness King Perkins is a 84 year old male with a history of coronary artery disease and CABG four-vessel 2007. Patient was having shortness of breath at the time. He states postoperatively he had right pleural effusion that was tapped 3 times. Patient presented here with difficulty breathing and exertional dyspnea for last 2 to 3 weeks. Legs have been swelling. Gets twinges of left parasternal pain. He has cough worse when supine and gained 15 pounds of fluid in last 2 weeks. He states overall he is lost 30 pounds in the last 5 years being faithful with exercise routine and eating healthy. Patient has history of atrial fibrillation and had transthoracic echocardiogram 01/11/2025 showed EF 60 to 65% RV hypokinesis RA dilated moderate stenosis and RV systolic pressure pressure 50-55 with pulmonary hypertension and IVC dilated. Follow-up transesophageal echo 01/12/2025 showed no left atrial appendage clot no clot in general EF 60% severe aortic calcification and moderate aortic valve stenosis Chest x-ray shows loculated right pleural effusion compressive atelectasis of the right lung base and moderate pulmonary vascular congestion. CT scan shows the loculated effusion lung scarring and atelectasis. I spoke with Dr. Real Woody and we note that our films show this loculated effusion since December 2023. The mass does not look malignant or even infectious but more like scarring Review of Systems 2 Narrative: General No fevers chills he has had 30 pound weight loss in 5 years but 15 pound weight gain in the last 2 weeks with leg edema Cardiovascular positive for leg edema dyspnea exertion orthopnea and twinges of left parasternal chest pain. He denies palpitations Respiratory positive for cough dyspnea no production GI no nausea vomiting diarrhea he has chronic constipation with bowel movement every 2 to 3 days he self caths 3 times a day since 2018 and gets about 500 to a liter. Today he is put out 2 L here in the emergency department says he saw urologist but no surgery was recommended and patient thinks his bladder is weak and prostate is also bit Neuro 2 strokes postsurgical surgery for his CABG in [facility] Heme he is not on anticoagulation due to report of AVM and a brain bleed. 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 and no surgery was indicated Medications/Allergies Home Medications ?Medication ?Instructions ?Recorded ?Confirmed ?Last Taken ?Type cyanocobalamin (vitamin B-12) 50 50 mcg PO DAILY 07/2801/12/25 12/30/23 History mcg tablet (Vitamin B-12) furosemide 20 mg tablet 20 mg PO BID 07/28/2301/11/25 History levothyroxine 25 mcg tablet 25 mcg PO DAILY 07/28/23 0 01/12/25 01/12/25 History rosuvastatin 20 mg tablet 20 mg PO DAILY 07/28/2301/0201/11/25 History tamsulosin 0.4 mg capsule 0.4 mg PO DAILY 07/28/2309/2801/11/25 History potassium chloride 10 mEq 10 meq PO BID 11/25/2401/1201/11/25 History tablet,extended release hydrochlorothiazide 12.5 mg tablet 12.5 mg PO DAILY #9 0 tabs 12/02/24 01/12/25 01/11/25 Rx amlodipine 5 mg tablet 5 mg PO BID #180 tabs Unknown Rx lisinopril 40 mg tablet 40 mg PO DAILY 01/12/2501/0201/11/25 History Allergies Allergy/AdvReac Type Severity Reaction Status Date / Time No Known Allergies Allergy Verified 01/11/25 20:00 PFSH Acute 2 PFSH: Medical History (Updated 03/31/25 @ 22:06 by Won Mercer MD) Urinary retention Loculated pleural effusion Pulmonary hypertension Atrial fibrillation AVM (arteriovenous malformation) Urinary incontinence Urinary catheter in place Hernia Surgical History (Updated 03/10/25 @ 00:00 by EULA Daniel) Hx of umbilical hernia repair 09/12/23 Dr Allen History of open heart surgery History of quadruple bypass Social History (Updated 03/31/25 @ 22:04 by Won Mercer MD) Smoking and tobacco/nicotine status: never used tobacco/nicotine Alcohol intake: never Substance/Drug Use: never Additional social history: He wants full code as discussed with him, his Amy and eldest daughter Rut on 03/31/2025 by Won Mercer MD. 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 Marital status: Marital status details: Rut Vitals/I&O/Wt Last Vital Signs Temp 98.0 F 03/31/25 14:36 Pulse 102 H 03/31/25 20:47 Resp 28 H 03/31/25 20:47 BP 159/83 03/31/25 20:47 Pulse Ox 88 L 03/31/25 20:47 O2 Del Method Room Air 03/31/25 20:47 Weight last 48 hrs Weight 99.79 kg Physical Exam 2 Narrative: General well-developed well-nourished male in no acute cardiopulmonary distress CV irregular rate and rhythm Lungs diminished breath sounds right middle and lower lung field absent in the base trace crackles in the bases Abdomen positive bowel sounds soft nontender Calves 3+ bilateral pretibial edema Neck JVP 14 cm Skin warm and dry Mentation alert and oriented x 3 he is a moderately good historian Data 03/31/25 17:53 03/31/25 17:53 A&P Assessment and plan (1) CHF exacerbation: Cardiac enzyme minimally elevated. Patient does not have anginal symptoms but has had orthopnea and leg swelling complicated by A-fib, pulmonary hypertension and urinary retention. He will be admitted for diuresis. Start furosemide 40 mg IV 3 times daily and spironolactone 25 mg twice a day. Monitor daily renal function replace potassium 20 mEq 3 times daily (2) Atrial fibrillation: Will rate control with metoprolol (3) AVM (arteriovenous malformation) brain: Patient states this is part of why he is not on anticoagulation. 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 Will give DVT prophylaxis Lovenox here (4) Pulmonary hypertension: I think this complicates his diuresis. Will support oxygen for saturation greater than 95% if he is not diuresing consider BiPAP. Patients that have workup for sleep apnea (5) Loculated pleural effusion: This is chronic and does not need to be addressed acutely but likely he will need thoracotomy. Could consider diagnostic thoracentesis (6) Chronic constipation: Start stool softeners and fiber (7) CAD (coronary artery disease): Stable troponin borderline at 16 despite heart failure (8) Urinary retention: Chronic due to BPH and probably weak bladder as he has not had surgery. Continue Flomax will place a Montilla for monitoring of I's and O's PDMP PDMP Reviewed: Not Reviewed Attestations 2 Medical Necessity Statement*: Anticipate greater than 2 midnights in the hospital for diuresis Coding Level of Care Code 26820 Diagnoses CHF exacerbation I50.9 Paroxysmal atrial fibrillation I48.0 Atrial fibrillation type: paroxysmal AVM (arteriovenous malformation) brain Q28.2 Pulmonary hypertension I27.20 Loculated pleural effusion J90 Chronic constipation K59.09 Coronary artery disease involving [place] coronary artery of [place] heart without angina pectoris I25.10 Coronary Disease-Associated Artery/Lesion type: [place] artery [place] vs. transplanted heart: [place] heart Associated angina: without angina Urinary retention R33.9 Time Spent (min) [address] Arechiga multiple times and Dr. Woody and radiology also
[2025-03-31 23:08] VITALS: BP 135/75; PULSE 76; O2SAT 94
[2025-03-31 23:22] VITALS: BMI 29.2
[2025-03-31 23:26] VITALS: O2SAT 96
--- NOTE | 2025-03-31 23:33 | ECG_ITS ---
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1940 Requested By: Steven Arechiga Order Number: [id number] Reading MD: RAYMOND ALLEN Measurements Intervals [place] Rate: 82 P: 0 SC: 0 QRS: 214 QRSD: 121 T: -1 QT: 333 QTc: 390 Interpretive Statements ATRIAL FIBRILLATION WITH ABERRANT CONDUCTION OR VENTRICULAR PREMATURE COMPLEXES INDETERMINATE AXIS POSSIBLE INFERIOR MYOCARDIAL INFARCTION , PROBABLY OLD [30 ms Q WAVE IN II/aVF] Compared to ECG 03/31/2025 20:42:20 Myocardial infarct finding now present Incomplete right bundle-branch block no longer present ST (T wave) deviation no longer present Electronically Signed On 04-07-2025 22:56:48 CDT by RAYMOND ALLEN [email or web address]
[2025-04-01] VITALS (7 sets, daily range): BP systolic 107–170; BP diastolic 53–76; PULSE 56–84; RESP 15–16; TEMP 36.6–37.2; O2SAT 90–95
[2025-04-01 00:02] LABS: Magnesium 1.8 mg/dL (1.7-2.3); Phosphorus 3.1 mg/dL (2.5-4.5); Thyroid Stimulating Hormone 3.06 uIU/mL (0.27-4.20)
[2025-04-01 00:18] LABS: Troponin 5 6HR 18.99 ng/L (0-15); Troponin 5 6HR Delta 2.99 ng/L (0-12)
[2025-04-01] MEDS: FUROsemide 10 mg/mL SDV 4mL 40 MG IVP ×3 (00:27→19:46)
[2025-04-01 06:15] LABS: Anion Gap 13.1 (5-19); Blood Urea Nitrogen 11 mg/dL (8-23); Calcium 8.5 mg/dL (8.5-10.5); Carbon Dioxide 28 mmol/L (22-29); Chloride 102 mmol/L (98-107); Creatinine Clr Calc Pharmacy 81.1744; Glucose 86 mg/dL (65-115); Osmolality Calculated 289 mOsm/kg (285-295); Potassium 3.1 mmol/L (3.5-5.1); Sodium 140 mmol/L (136-145)
[2025-04-01] MEDS: levothyroxine 25 mcg Tablet PO (06:32)
[2025-04-01] MEDS: tamsulosin 0.4 mg Capsule PO (07:41)
[2025-04-01] MEDS: amlodipine 5 mg Tablet PO ×2 (07:41→17:06)
[2025-04-01] MEDS: spironolactone 25 mg Tablet PO ×2 (07:41→17:06)
[2025-04-01] MEDS: enoxaparin 40 mg/0.4 mL Syringe SUBCUT (07:41)
[2025-04-01] MEDS: potassium chloride ER 20 mEq Tablet PO ×3 (07:41→20:54)
[2025-04-01] MEDS: lisinopril 20 mg Tablet 40 MG PO (07:41)
--- NOTE | 2025-04-01 13:09 | P.PN_ITS ---
Subjective 2 Subjective: Overnight labs and H&P reviewed. Patient is currently on IV Lasix in view of pulmonary edema. Total output of 4300 cc. Net -3.3 L. Lower extremity edema is improving. Medications: Reviewed: Yes Vitals/I&O/Wt Last Vital Signs Temp 98.3 F 04/01/25 11:05 Pulse 68 04/01/25 11:05 Resp 16 04/01/25 11:05 BP 138/76 04/01/25 11:05 Pulse Ox 90 04/01/25 11:05 O2 Del Method Room Air 04/01/25 11:05 O2 Flow Rate 1 04/01/25 07:19 03/31/25 04/01/25 04/01/25 22:59 06:59 14:59 Intake Total 400 / 400 590 / 590 Output Total 2800 / 2800 1500 / 1500 Balance -2400 / -2400 -910 / -910 Weight last 48 hrs Weight 96.615 kg Weight 100.698 kg Weight 99.79 kg Physical Exam 2 Narrative: General: No acute distress, AO x3 HEENT: PERRLA, pupils bilaterally equal and reactive, pallors not present Chest: Normal vesicular breath sounds, no added sounds, equal good air entry bilaterally CVS: S1-S2 regular, no murmurs, no tachycardia, no gallops, no rubs Abdomen: Soft, nontender, no organomegaly, bowel sounds present Neuro: No focal deficits, no facial deformity, AO x3, power 5/5 in all limbs Urinary Catheter Management: Montilla: Cath Placed During This Visit: yes Reason for Continuing Indwelling Catheter: Acute Urinary Retention or Obstruction Urinary Catheter Date of Insertion: 03/31/25 Urinary Catheter Time of Insertion: 22:10 Data 03/31/25 17:53 04/01/25 04:50 A&P Assessment and plan (1) CHF exacerbation: Cardiac enzyme minimally elevated. Patient does not have anginal symptoms but has had orthopnea and leg swelling complicated by A-fib, pulmonary hypertension and urinary retention. He will be admitted for diuresis. Start furosemide 40 mg IV 3 times daily and spironolactone 25 mg twice a day. Monitor daily renal function replace potassium 20 mEq 3 times daily (2) Atrial fibrillation: Will rate control with metoprolol (3) AVM (arteriovenous malformation) brain: Patient states this is part of why he is not on anticoagulation. 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 Will give DVT prophylaxis Lovenox here (4) Pulmonary hypertension: I think this complicates his diuresis. Will support oxygen for saturation greater than 95% if he is not diuresing consider BiPAP. Patients that have workup for sleep apnea (5) Loculated pleural effusion: This is chronic and does not need to be addressed acutely but likely he will need thoracotomy. Could consider diagnostic thoracentesis (6) Chronic constipation: Start stool softeners and fiber (7) CAD (coronary artery disease): Stable troponin borderline at 16 despite heart failure (8) Urinary retention: Chronic due to BPH and probably weak bladder as he has not had surgery. Continue Flomax will place a Montilla for monitoring of I's and O's Plan April 01, 2025 Overall net negative by over 3 L. Lower extremity edema is improving. Reduce Lasix to 40 mg IV every 12 hours. Closely monitor kidney function and urine output with this change. Recent echocardiogram reviewed from January 2025 showing an ejection fraction of 60%, moderately increased left atrial size, severe aortic valve calcification. There was concern for potential left atrial thrombus in January 2025 however this was eventually excluded after he underwent a PIPE. He remains off of anticoagulation due to high risk of bleeding with AVN. Currently admitted with several days of increasing lower extremity swelling he had been on Lasix 20 mg p.o. twice daily however has not increased his dose in recent times. He is known to have a loculated pleural effusion which has been present at least since 2018 since his CABG per review of pulmonology notes from December 2023. Thoracentesis was last attempted in December 2023 but was unsuccessful. 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 PDMP PDMP Reviewed: Not Reviewed Attestations 2 Medical Necessity Statement*: Continued need for IV diuresis, optimization of fluid status, monitor kidney function with diuresis Coding Level of Care Code Acute Code for Chg Fwd High MDM includes number and complexity of problems actively addressed during encounter, amount and/or complexity of data reviewed/ordered and described risk of complication, morbidity or mortality of management as documented Diagnoses CHF exacerbation I50.9 Paroxysmal atrial fibrillation I48.0 Atrial fibrillation type: paroxysmal AVM (arteriovenous malformation) brain Q28.2 Pulmonary hypertension I27.20 Loculated pleural effusion J90 Chronic constipation K59.09 Coronary artery disease involving [place] coronary artery of [place] heart without angina pectoris I25.10 Coronary Disease-Associated Artery/Lesion type: [place] artery [place] vs. transplanted heart: [place] heart Associated angina: without angina Urinary retention R33.9
[2025-04-01] MEDS: atorvastatin 40 mg Tablet 80 MG PO (20:54)
[2025-04-02] VITALS (8 sets, daily range): BP systolic 149–170; BP diastolic 70–79; PULSE 50–75; RESP 15–18; TEMP 36.4–36.9; O2SAT 93–96
[2025-04-02 02:36] LABS: Anion Gap 13.3 (5-19); Blood Urea Nitrogen 17 mg/dL (8-23); Calcium 8.6 mg/dL (8.5-10.5); Carbon Dioxide 28 mmol/L (22-29); Chloride 103 mmol/L (98-107); Creatinine Clr Calc Pharmacy 81.1744; Glucose 90 mg/dL (65-115); Osmolality Calculated 293 mOsm/kg (285-295); Potassium 3.3 mmol/L (3.5-5.1); Sodium 141 mmol/L (136-145)
[2025-04-02] MEDS: levothyroxine 25 mcg Tablet PO (06:00)
[2025-04-02] MEDS: tamsulosin 0.4 mg Capsule PO (07:59)
[2025-04-02] MEDS: enoxaparin 40 mg/0.4 mL Syringe SUBCUT (07:59)
[2025-04-02] MEDS: spironolactone 25 mg Tablet PO ×2 (07:59→18:08)
[2025-04-02] MEDS: potassium chloride ER 20 mEq Tablet PO ×3 (07:59→20:44)
[2025-04-02] MEDS: lisinopril 20 mg Tablet 40 MG PO (07:59)
[2025-04-02] MEDS: amlodipine 5 mg Tablet PO ×2 (07:59→18:08)
[2025-04-02] MEDS: FUROsemide 10 mg/mL SDV 4mL 40 MG IVP (07:59)
[2025-04-02] MEDS: polyethylene glycol 3350 Pkt 17 gm PO (09:03)
--- NOTE | 2025-04-02 10:03 | PC.SOCIAL ---
IMM Update pg 2 of IMM Updated and reviewed w/ patient. Copy provided and copy dated, initialed and placed in chart.
--- NOTE | 2025-04-02 14:12 | P.PN_ITS ---
Subjective 2 Subjective: No acute interim events. Patient's urine output is charted as 31 L however this is presumably not correct. Clarified with the nurse that this is 3 L and not 31 L as charted in the chart. Medications: Reviewed: Yes Vitals/I&O/Wt Last Vital Signs Temp 98.4 F 04/02/25 11:06 Pulse 72 04/02/25 11:06 Resp 16 04/02/25 11:06 BP 170/75 04/02/25 11:06 Pulse Ox 94 04/02/25 11:06 O2 Del Method Room Air 04/02/25 11:06 O2 Flow Rate 1 04/01/25 07:19 04/01/25 04/02/25 04/02/25 22:59 06:59 14:59 Intake Total 120 / 710 594 / 594 Output Total 1950 / 3450 500 / 3950 11720 / 77090 Balance -1830 / -2740 -500 / -3240 -11478 / -84838 Weight last 48 hrs Weight 99.11 kg Weight 95.51 kg Weight 96.615 kg Weight 100.698 kg Weight 99.79 kg Physical Exam 2 Narrative: General: No acute distress, AO x3 HEENT: PERRLA, pupils bilaterally equal and reactive, pallors not present Chest: Normal vesicular breath sounds, no added sounds, equal good air entry bilaterally CVS: S1-S2 regular, no murmurs, no tachycardia, no gallops, no rubs Abdomen: Soft, nontender, no organomegaly, bowel sounds present Neuro: No focal deficits, no facial deformity, AO x3, power 5/5 in all limbs Urinary Catheter Management: Montilla: Cath Placed During This Visit: yes Reason for Continuing Indwelling Catheter: Accurate Measurement of Urinary Output in Critically Ill Patients Urinary Catheter Date of Insertion: 03/31/25 Urinary Catheter Time of Insertion: 22:10 Data 03/31/25 17:53 04/02/25 01:47 A&P Assessment and plan (1) CHF exacerbation: Cardiac enzyme minimally elevated. Patient does not have anginal symptoms but has had orthopnea and leg swelling complicated by A-fib, pulmonary hypertension and urinary retention. He will be admitted for diuresis. Start furosemide 40 mg IV 3 times daily and spironolactone 25 mg twice a day. Monitor daily renal function replace potassium 20 mEq 3 times daily (2) Atrial fibrillation: Will rate control with metoprolol (3) AVM (arteriovenous malformation) brain: Patient states this is part of why he is not on anticoagulation. 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 Will give DVT prophylaxis Lovenox here (4) Pulmonary hypertension: I think this complicates his diuresis. Will support oxygen for saturation greater than 95% if he is not diuresing consider BiPAP. Patients that have workup for sleep apnea (5) Loculated pleural effusion: This is chronic and does not need to be addressed acutely but likely he will need thoracotomy. Could consider diagnostic thoracentesis (6) Chronic constipation: Start stool softeners and fiber (7) CAD (coronary artery disease): Stable troponin borderline at 16 despite heart failure (8) Urinary retention: Chronic due to BPH and probably weak bladder as he has not had surgery. Continue Flomax will place a Montilla for monitoring of I's and O's Plan April 01, 2025 Overall net negative by over 3 L. Lower extremity edema is improving. Reduce Lasix to 40 mg IV every 12 hours. Closely monitor kidney function and urine output with this change. Recent echocardiogram reviewed from January 2025 showing an ejection fraction of 60%, moderately increased left atrial size, severe aortic valve calcification. There was concern for potential left atrial thrombus in January 2025 however this was eventually excluded after he underwent a PIPE. He remains off of anticoagulation due to high risk of bleeding with AVN. Currently admitted with several days of increasing lower extremity swelling he had been on Lasix 20 mg p.o. twice daily however has not increased his dose in recent times. He is known to have a loculated pleural effusion which has been present at least since 2018 since his CABG per review of pulmonology notes from December 2023. Thoracentesis was last attempted in December 2023 but was unsuccessful. 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 April 02, 2025 Patient is clinically better today. Trending towards euvolemia. Discontinue IV Lasix and switch to oral Lasix p.o. twice daily. Urine output is not accurately charted, presumably this is 3.1 L and not 31 L. To be clarified with the nurse. Lower extremity edema is much improved. Patient states he feels better, less short of breath compared to admission. Chest is clear to auscultation. Likely will be able to discharge in the upcoming 24 hours if does well with transition to oral diuretics. PDMP PDMP Reviewed: Not Reviewed Attestations 2 Medical Necessity Statement*: Transition IV to oral diuresis Coding Level of Care Code Acute Code for Chg Fwd Moderate MDM includes number and complexity of problems actively addressed during encounter, amount and/or complexity of data reviewed/ordered and described risk of complication, morbidity or mortality of management as documented Diagnoses CHF exacerbation I50.9 Paroxysmal atrial fibrillation I48.0 Atrial fibrillation type: paroxysmal AVM (arteriovenous malformation) brain Q28.2 Pulmonary hypertension I27.20 Loculated pleural effusion J90 Chronic constipation K59.09 Coronary artery disease involving [place] coronary artery of [place] heart without angina pectoris I25.10 Coronary Disease-Associated Artery/Lesion type: [place] artery [place] vs. transplanted heart: [place] heart Associated angina: without angina Urinary retention R33.9
[2025-04-02] MEDS: FUROsemide 40 mg Tablet PO (18:08)
[2025-04-02] MEDS: atorvastatin 40 mg Tablet 80 MG PO (20:44)
[2025-04-03] VITALS: BP 144/73; PULSE 60; RESP 18; TEMP 36.6; O2SAT 92
[2025-04-03 03:49] VITALS: BP 139/69; PULSE 58; RESP 19; TEMP 36.6; O2SAT 95
[2025-04-03 05:31] VITALS: PULSE 54
[2025-04-03 05:50] LABS: Anion Gap 12.8 (5-19); Blood Urea Nitrogen 15 mg/dL (8-23); Calcium 8.7 mg/dL (8.5-10.5); Carbon Dioxide 27 mmol/L (22-29); Chloride 103 mmol/L (98-107); Creatinine Clr Calc Pharmacy 80.4769; Glucose 88 mg/dL (65-115); Osmolality Calculated 288 mOsm/kg (285-295); Potassium 3.8 mmol/L (3.5-5.1); Sodium 139 mmol/L (136-145)
[2025-04-03] MEDS: levothyroxine 25 mcg Tablet PO (06:01)
[2025-04-03 07:19] VITALS: BP 151/72; PULSE 57; RESP 16; TEMP 36.6; O2SAT 96
[2025-04-03] MEDS: polyethylene glycol 3350 Pkt 17 gm PO (10:33)
[2025-04-03] MEDS: lisinopril 20 mg Tablet 40 MG PO (10:33)
[2025-04-03] MEDS: spironolactone 25 mg Tablet PO (10:33)
[2025-04-03] MEDS: tamsulosin 0.4 mg Capsule PO (10:33)
[2025-04-03] MEDS: FUROsemide 40 mg Tablet PO (10:33)
[2025-04-03] MEDS: potassium chloride ER 20 mEq Tablet PO (10:33)
[2025-04-03] MEDS: amlodipine 5 mg Tablet PO (10:33)
[2025-04-03] MEDS: enoxaparin 40 mg/0.4 mL Syringe SUBCUT (10:34)
[2025-04-03 11:20] VITALS: BP 172/64; PULSE 66; RESP 17; TEMP 36.7; O2SAT 96
[2025-04-03 11:33] LABS: Glucose Point of Care 116 mg/dL (70-110)
--- NOTE | 2025-04-03 13:45 | PC.NURSE ---
Discharge paperwork discussed with patient. IV line was removed. All questions were answered. Patient was escorted to exit by YENNY Meyer at 1305 via wheelchair.
[2025-04-03 13:48] VITALS: BP 172/64; PULSE 66; RESP 17; TEMP 36.7; O2SAT 96
--- NOTE | 2025-04-03 16:32 | P.DS_ITS ---
Discharge Providers Date of Admission: 03/31/25 21:31 Date of Discharge: April 03, 2025 Attending Provider at Admission: Won Mercer MD Attending Provider at Discharge: Sandy Gillette MD Primary Care Provider: Katie Otto NP Diagnoses at Discharge Discharge Diagnosis (1) CHF exacerbation: Status: Acute (2) Atrial fibrillation: Status: Acute Qualifiers: Atrial fibrillation type: paroxysmal Qualified Code(s): I48.0 - Paroxysmal atrial fibrillation (3) AVM (arteriovenous malformation) brain: Status: Acute (4) Pulmonary hypertension: Status: Acute (5) Loculated pleural effusion: Status: Acute (6) Chronic constipation: Status: Acute (7) CAD (coronary artery disease): Status: Acute Qualifiers: Associated angina: without angina Coronary Disease-Associated Artery/Lesion type: andreafski artery [place] vs. transplanted heart: andreafski heart Qualified Code(s): I25.10 - Atherosclerotic heart disease of andreafski coronary artery without angina pectoris (8) Urinary retention: Status: Acute Reason for Visit Reason for Visit: SOB weakness in legs Hospital Course Hospital Course King Perkins is a 84 year old male with a history of coronary artery disease and CABG four-vessel 2008, chronic diastolic CHF who presnted to the hospital with worsening dyspnea and lower extremity swelling. Cta chest was negative for PE, showed pulmonary edema. Recent echo from 01/2025 showed Normal left ventricular size, systolic function and wall thickness, with no regional wall motion abnormalities. Left ventricular ejection fraction is estimated at 60 %. Severe aortic valve calcification. He was treated for acute on chronic diastolic CHF with iv lasix, which was transitioned to po lasix 40mg BID at discharge. He is instrcuted to take 40mg BID for 2 days, then reduce to his usual dose of 20mg BID. Cardiology follow up has been arranaged. Patient was also noted to have a chronic pleural effusion which is loculated. Pre-existing disease since 2018 for which he has been followed by pulmonology in the past. He has not seen anyone since Dr. Ventura has left the organization. Also referral was provided to pulmonology at [facility] for long-term follow-up of this known loculated pleural effusion. His urine output in the system has not been charted accurately. Please note that patient is net negative by 3700 cc and not 37,000 cc as is charted in the system. Physical Exam Narrative: General: No acute distress, AO x3 HEENT: PERRLA, pupils bilaterally equal and reactive, pallors not present Chest: Normal vesicular breath sounds, no added sounds, equal good air entry bilaterally CVS: S1-S2 regular, no murmurs, no tachycardia, no gallops, no rubs Abdomen: Soft, nontender, no organomegaly, bowel sounds present Neuro: No focal deficits, no facial deformity, AO x3, power 5/5 in all limbs Urinary Catheter Management: Montilla: Cath Placed During This Visit: yes, but has since been removed by the nurse Reason for Continuing Indwelling Catheter: Decision to DC Catheter Urinary Catheter Date of Insertion: 03/31/25 Urinary Catheter Time of Insertion: 22:10 Date Urinary Catheter Removed: 04/03/25 Time Urinary Catheter Discontinued: 11:59 Discharge Data Studies Completed and Pending Completed Studies During Hospitalization Category Date Time Status CT angio chest [id number] Stat Cat Scan 03/31/25 19:12 Completed XR chest 1V portable [id number] Stat Exams 03/31/25 17:38 Completed Radiology Impressions Chest X-Ray 03/31/25 17:38 IMPRESSION: As above. Chest CTA 03/31/25 19:12 IMPRESSION: 1. No definite or central PE. The peripheral arteries are limited as described. 2. Prominent area of right mid to lower lung rounded atelectasis or scar likely. Less likely consolidation, neplasm, or other etiologies. Recommend three-month follow-up. Follow with CV surgery. 3. Mild evidence of CHF or positive fluid balance. 4. Wqcje-rooylfx-edqd-left pleural effusions. The the right one is complex and loculated. These are chronic and similar going back to at least December 2023. 5. A few other chronic/incidental findings above. THIS REPORT CONTAINS FINDINGS THAT MAY BE CRITICAL TO PATIENT CARE. The findings were verbally communicated via telephone conference at 9:49 PM CDT on 03/31/[address] Mercer. The findings were acknowledged and understood. Overall, the chronic right loculated effusion is very similar to 12/09/2023. Laboratory Results WBC 5.64 10^3/uL (3.29-11.43) 03/31/25 17:53 RBC 3.54 10^6/uL (3.85-5.65) L 03/31/25 17:53 Hgb 11.30 g/dL (11.27-16.99) 03/31/25 17:53 Hct 33.6 % (37-53) L 03/31/25 17:53 MCV 94.9 fl (82-101) 03/31/25 17:53 MCH 31.9 pg (27-33) 03/31/25 17:53 MCHC 33.6 g/dL (30-55) 03/31/25 17:53 RDW 14.4 % (12.1-15.1) 03/31/25 17:53 Plt Count 154 10^3/cmm (157-399) L 03/31/25 17:53 MPV 9.7 fL (7.4-10.4) 03/31/25 17:53 Neut % (Auto) 64.5 % 03/31/25 17:53 Lymph % (Auto) 22.2 % 03/31/25 17:53 Montgomery % (Auto) 12.2 % 03/31/25 17:53 Eos % (Auto) 0.4 % 03/31/25 17:53 Baso % (Auto) 0.5 % 03/31/25 17:53 Neut # (Auto) 3.64 10^3/uL (1.8-7.7) 03/31/25 17:53 Lymph # (Auto) 1.3 10^3/uL (0.8-4.8) 03/31/25 17:53 Montgomery # (Auto) 0.7 10^3/uL (0.2-0.9) 03/31/25 17:53 Eos # (Auto) 0.0 10^3/uL (0.0-0.8) 03/31/25 17:53 Baso # (Auto) 0.0 10^3/uL (0.0-0.1) 03/31/25 17:53 Nucleated RBC % (auto) 0 % 03/31/25 17:53 Nucleated RBCs # 0.0 /100WBC 03/31/25 17:53 Sodium 139 mmol/L (136-145) 04/03/25 04:36 Potassium 3.8 mmol/L (3.5-5.1) 04/03/25 04:36 Chloride 103 mmol/L (98-107) 04/03/25 04:36 Carbon Dioxide 27 mmol/L (22-29) 04/03/25 04:36 Anion Gap 12.8 (5-19) 04/03/25 04:36 BUN 15 mg/dL (8-23) 04/03/25 04:36 Creatinine 0.6 mg/dL (0.7-1.2) L 04/03/25 04:36 GFR Calculation Not Reportable 04/03/25 04:36 Glucose 88 mg/dL (65-115) 04/03/25 04:36 POC Glucose 116 mg/dL (70-110) H 04/03/25 11:26 Calculated Osmolality 288 mOsm/kg (285-295) 04/03/25 04:36 Calcium 8.7 mg/dL (8.5-10.5) 04/03/25 04:36 Phosphorus 3.1 mg/dL (2.5-4.5) 03/31/25 19:35 Magnesium 1.8 mg/dL (1.7-2.3) 03/31/25 19:35 Total Bilirubin 1.6 mg/dL (0.15-1.2) H 03/31/25 17:53 AST 20 U/L (0-40) 03/31/25 17:53 ALT 12 U/L (0-41) 03/31/25 17:53 Alkaline Phosphatase 104 U/L (40-130) 03/31/25 17:53 Troponin T Baseline 16 ng/L (0-15) H 03/31/25 17:53 Troponin T 120 Minute 15.99 ng/L (0-15) H 03/31/25 19:35 Delta Troponin T -0.01 ABS# (0-10) L 03/31/25 19:35 Troponin T Hi Sens 6Hr 18.99 ng/L (0-15) H 03/31/25 23:50 Troponin T Hi Sens 6Hr Delta 2.99 ng/L (0-12) 03/31/25 23:50 NT-Pro-B Natriuret Pep 539 pg/mL (0-450) H 03/31/25 17:53 Total Protein 6.7 g/dL (6.6-8.7) 03/31/25 17:53 Albumin 4.4 g/dL (3.5-5.2) 03/31/25 17:53 Globulin 2.3 g/dL (1.3-4.6) 03/31/25 17:53 TSH 3.06 uIU/mL (0.27-4.20) 03/31/25 19:35 Vitals Last Vital Signs Temp 98.0 F 04/03/25 13:48 Pulse 66 04/03/25 13:48 Resp 17 04/03/25 13:48 BP 172/64 04/03/25 13:48 Pulse Ox 96 04/03/25 13:48 O2 Del Method Room Air 04/03/25 11:20 O2 Flow Rate 1 04/01/25 07:19 Discharge Plan Discharge Patient Disposition: Home Condition: Stable Prescriptions: New furosemide 40 mg Tablet 40 mg PO BID@08,16 2 Days Qty: 4 0RF Continued hydrochlorothiazide 12.5 mg tablet 12.5 mg PO DAILY Qty: 90 3RF levothyroxine 25 mcg Tablet 25 mcg PO DAILY Vitamin B-12 50 mcg Tablet 50 mcg PO DAILY tamsulosin 0.4 mg capsule 0.4 mg PO DAILY furosemide 20 mg tablet 20 mg PO BID rosuvastatin 20 mg tablet 20 mg PO QPM potassium chloride 10 mEq tablet extended release 10 meq PO BID lisinopril 40 mg tablet 40 mg PO DAILY amlodipine 5 mg Tablet 5 mg PO BID Qty: 180 0RF Discharge Orders: Discharge Order (Routine); Ordered 04/03/25 Ordered By: Sandy Gillette Referrals: [facility] Pulmonology [Outside] - 2 weeks Referral Note: referral sent Katie Otto NP [Primary Care Provider, Unknown] - 04/07/25 2:30 pm Td Lowry M.D [Physician, Cardiology] - 04/08/25 1:30 pm Patient Instructions: Furosemide (By mouth), Heart Failure (DC), Pleural Effusion (DC), CHF Stoplight, Opioid Safety Discharge Attestations Time Spent in Discharge Care*: greater than 30 min Quality Metrics Clinical Quality Measures [ No reported AMI, CVA or VTE this stay] Coding Level of Care Code Acute Code for Chg Fwd Diagnoses CHF exacerbation I50.9 Paroxysmal atrial fibrillation I48.0 Atrial fibrillation type: paroxysmal AVM (arteriovenous malformation) brain Q28.2 Pulmonary hypertension I27.20 Loculated pleural effusion J90 Chronic constipation K59.09 Coronary artery disease involving andreafski coronary artery of andreafski heart without angina pectoris I25.10 Associated angina: without angina Coronary Disease-Associated Artery/Lesion type: andreafski artery [place] vs. transplanted heart: andreafski heart Urinary retention R33.9
== END 2025-04-03 13:05 | disposition home or self-care (01) | DRG 291 ==
LOC: ER 21:59 → MEDSURG 22:51
PROVIDERS: Admitting Provider Internal Medicine; Emergency Provider Emergency Medicine; PCP Nurse Practitioner Family; Visit Provider Student in an Organized Health Care Education/Training Program
DX: I50.33 Acute on chronic diastolic (congestive) heart failure (principal); Q28.2 Arteriovenous malformation of cerebral vessels; J98.11 Atelectasis; I48.0 Paroxysmal atrial fibrillation; I27.20 Pulmonary hypertension, unspecified; K59.09 Other constipation; I25.10 Atherosclerotic heart disease of native coronary artery without angina pectoris; N40.1 Benign prostatic hyperplasia with lower urinary tract symptoms; R33.8 Other retention of urine; I45.10 Unspecified right bundle-branch block; R09.02 Hypoxemia; I35.0 Nonrheumatic aortic (valve) stenosis; Z95.1 Presence of aortocoronary bypass graft
CPT/HCPCS: 36415; 36416; 51702; 71045; 71275; 80048; 80053; 82962; 83735; 83880; 84100; 84443; 84484; 85025; 93005; 94660; 94664; 96372; 96374; 99285; J1650; J1938; J9999

== ENCOUNTER → 2025-04-08 13:24 | Outpatient (BNVA) | payer MEDICARE, SELFPAY | PROVIDERS: PCP Nurse Practitioner Family; Visit Provider Nurse Practitioner Family | DX: I11.0 Hypertensive heart disease with heart failure (principal); I50.9 Heart failure, unspecified; I35.0 Nonrheumatic aortic (valve) stenosis; I48.0 Paroxysmal atrial fibrillation; Z09 Encounter for follow-up examination after completed treatment for conditions other than malignant neoplasm; Z95.1 Presence of aortocoronary bypass graft | CPT/HCPCS: 99214 ==

== ENCOUNTER → 2025-05-20 14:54 | Outpatient (BNVA) | payer MEDICARE, SELFPAY | PROVIDERS: PCP Nurse Practitioner Family; Referring Provider Specialist; Visit Provider Specialist | DX: Q28.2 Arteriovenous malformation of cerebral vessels (principal); G31.84 Mild cognitive impairment of uncertain or unknown etiology | CPT/HCPCS: 99205 ==

== ENCOUNTER → 2025-05-26 12:34 | Outpatient (BNVA) | payer MEDICARE, SELFPAY | PROVIDERS: PCP Nurse Practitioner Family; Visit Provider Internal Medicine | DX: I48.0 Paroxysmal atrial fibrillation (principal); I25.10 Atherosclerotic heart disease of native coronary artery without angina pectoris | CPT/HCPCS: 99214 ==

== ENCOUNTER 2025-05-28 10:29 | Outpatient (CLI) | payer MEDICARE, SELFPAY ==
--- NOTE | 2025-05-28 10:45 | MR_ITS ---
WS: [id number] MRI HEAD WITHOUT CONTRAST TECHNIQUE: Sagittal T1, T2 axial, T2 axial FLAIR, axial and coronal T1 images, axial susceptibility weighted imaging, axial diffusion weighted images, and coronal T2 images were obtained. CLINICAL INFORMATION: Q28.2 - Arteriovenous malformation of cerebral vessels COMPARISON: CTA 01/11/2025 FINDINGS: Heterogeneous focus of susceptibility artifact involving the LEFT dorsal midbrain adjacent to the aqueduct most compatible with a cavernoma. This measures approximately 11 x 9 mm. No evidence of recent hemorrhage. No hydrocephalus. No evidence of acute edema in the mid brain. No evidence of restricted diffusion to suggest acute ischemia. Ventricular system and basilar cisterns are patent. Moderate small vessel changes with moderate parenchymal volume loss. Chronic bilateral parieto-occipital infarcts with encephalomalacia and gliosis in a symmetric distribution. Small vessel changes in the [place]. Normal posterior fossa. Normal vascular flow voids at the skull base. No extra-axial fluid collections. Paranasal sinuses and mastoid air cells are well aerated. Normal posterior nasopharynx. Small punctate focus of hemosiderin in the RIGHT parasagittal frontal lobe. Normal optic chiasm and pituitary infundibulum. MR/MR head wo con* [id number] IMPRESSION: 1. 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 No evidence of recent hemorrhage or edema. 2. No evidence of restricted diffusion to suggest acute ischemia. 3. Bilateral parasagittal parieto-occipital infarct in a symmetric fashion lik wood due to watershed infarcts. 4. Moderate small vessel changes with moderate parenchymal volume loss. Small vessel changes in the alisia. 5. Tiny punctate focus of hemosiderin in the RIGHT parasagittal frontal lobe
--- NOTE | 2025-05-28 11:30 | MR_ITS ---
WS: [id number] MRA HEAD TECHNIQUE: Axial 3-D TOF images obtained with axial images and axial, sagittal, and coronal 2-D reformatted images. CLINICAL INFORMATION: Q28.2 - Arteriovenous malformation of cerebral vessels COMPARISON: None. 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 This is further described on the MRI head. No evidence of high flow vascular malformation. Distal vertebral arteries are patent. Basilar artery is patent. Persistent RIGHT ALL ROUND [place]CHER. Normal vascularity to the ALL ROUND BUTCHER territory bilaterally. Both ICAs are patent at the skull base. Normal vascularity to the IRINA and MCA territories bilaterally. Patent anterior communicating artery. No evidence of proximal flow-limiting stenosis. 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 This is further described on the MRI head. No evidence of high flow vascular m alformation.
== END 2025-05-28 10:30 | disposition home or self-care (01) ==
LOC: RAD 10:32
PROVIDERS: PCP Nurse Practitioner Family; Visit Provider Specialist
DX: Q28.2 Arteriovenous malformation of cerebral vessels (principal); G31.84 Mild cognitive impairment of uncertain or unknown etiology
CPT/HCPCS: 70544; 70551

== ENCOUNTER → 2025-07-01 10:51 | Outpatient (BNVA) | payer MEDICARE, SELFPAY | PROVIDERS: PCP Nurse Practitioner Family; Visit Provider Nurse Practitioner Family | DX: F42.4 Excoriation (skin-picking) disorder (principal); L57.8 Other skin changes due to chronic exposure to nonionizing radiation; X32.XXXA Exposure to sunlight, initial encounter; L57.0 Actinic keratosis; L81.4 Other melanin hyperpigmentation; Z08 Encounter for follow-up examination after completed treatment for malignant neoplasm; Z85.828 Personal history of other malignant neoplasm of skin | CPT/HCPCS: 99214 ==

== ENCOUNTER → 2025-08-05 14:51 | Outpatient (BNVA) | payer MEDICARE, SELFPAY | PROVIDERS: PCP Nurse Practitioner Family; Visit Provider Nurse Practitioner Family | DX: F42.4 Excoriation (skin-picking) disorder (principal); L70.8 Other acne; D18.01 Hemangioma of skin and subcutaneous tissue; Z70.8 Other sex counseling; L57.8 Other skin changes due to chronic exposure to nonionizing radiation; L57.0 Actinic keratosis; L81.4 Other melanin hyperpigmentation; Z08 Encounter for follow-up examination after completed treatment for malignant neoplasm; Z85.828 Personal history of other malignant neoplasm of skin; X32.XXXA Exposure to sunlight, initial encounter | CPT/HCPCS: 99214 ==

== ENCOUNTER 2025-08-19 08:10 | Emergency (ER) | payer MEDICARE, SELFPAY ==
--- OUTSIDE RECORDS SUMMARY | 2024-03-10 12:00 | XMS_ITS ---
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 Name Role Phone HOSEA KNOWLES Unavailable [phone] HAO RAYMUNDO Unavailable [phone] REASON FOR VISIT 6 mo w/ ua/pvr Encounters Encounter Location Date Provider Diagnosis [facility], [facility] [address] [place] [facility] [place] [address] 03/10/2024 HAO RAYMUNDO Plan Of Treatment No Information Progress Notes * Layton PERKINSOB:1940 (84 yo M)Acc No.[id number]:03/10/2024 Progress Notes Patient: King ALONSO Provider: YESSENIA Lang :1940 A ge:83 Y S ex:Male Date:03/10/2024 Address:[address] [place], [place] [id number] Subjective: * Chief Complaints: * 1 . 6 mo w/ ua/pvr. * Medical History: Objective: * Vitals: Assessment: Plan: * Treatment: * Billing Information: * Visit Code: * Procedure Codes: * Electronic signature of HAO RAYMUNDO APRN on 08/19/2025 at 08:17 AM CDT Sign off status: Pending * Provider: YESSENIA Lang Date: 0 03/10/2024 Generated for Chapis sparks/Dominique/eTransmitting on: 08:17 AM CDT
--- OUTSIDE RECORDS SUMMARY | 2025-06-28 05:15 | XMS_ITS ---
Author Organization [facility] Address [address] [place] [address] Care Team Providers Care Learning Facilitator Name Role Phone Katie Otto APRN Primary Care Provider Maci Sotomayor Unavailable [phone] Jaqueline Archuleta Unavailable Unavailable Chino Siddiqi Unavailable [phone] Encounters Encounter Location Date Provider Diagnosis [facility] [address] [place] [phone] 06/28/2025 Chino Siddiqi Plan Of Treatment Next Appt Details Provider Name:Chino Siddiqi , 09/10/2025 08:45:00 AM, [address] [place] [address], [phone], Provider Name:Chino Siddiqi , 09/10/2025 09:45:00 AM, [address] [place] [address], [place], [phone], Progress Notes * JAMISON VIGIL RUMADOB:[birth year] (84 yo M)Acc No.[id number]:06/28/2025 Patient: JAMISON ALONSO Provider: Jason Siddiqi M.D. :1940 A ge:84 Y S ex:Male Date:06/28/2025 Address:[id number] Pcp:Katie J Fam, EMR IMPLEMENTATION SPECIALIST * Electronic signature of Chino Siddiqi MD on 08/19/2025 at 08:17 AM CDT Sign off status: Pending * Provider: Jason Siddiqi M.D. Date: 0 06/28/2025 Generated for Chapis sparks/Dominique/Molly on: 1 08:17 AM CDT
--- OUTSIDE RECORDS SUMMARY | 2025-06-29 04:00 | XMS_ITS ---
Author Organization [facility] Address [address] [place] [address] Care Team Providers Care Broadcast Operations Manager Name Role Phone Katie Otto APRN Primary Care Provider Maci Sotomayor Unavailable [phone] Jaqueline Archuleta Unavailable Unavailable Chino Siddiqi Unavailable [phone] REASON FOR VISIT R/L LHC+/- WITH DR. PORTILLO ON 06.29.25 AT 0900AM CHECK IN AT 0700AM LABS TO BE DONE THE MORNING OF 25//ML Encounters Encounter Location Date Provider Diagnosis [facility] [address] [place] [id number] 06/29/2025 Chino Siddiqi Plan Of Treatment Next Appt Details Provider Name:Chino Siddiqi , 09/10/2025 08:45:00 AM, [address] [place] [address], [phone], Provider Name:Chino Siddiqi , 09/10/2025 09:45:00 AM, [address] [place] [address], [phone], Progress Notes * JAMISON VIGILDOB:[birth year] (84 yo M)Acc No.[id number]:06/29/2025 [place] Patient: JAMISON ALONSO Provider: Jason Siddiqi M.D. :1940 A ge:84 Y S ex:Male Date:06/29/2025 Address:[address] [place], [place] [phone] Pcp:Katie Otto APRN Subjective: * Chief Complaints: * R /L LHC+/- WITH DR. PORTILLO ON 06.29.25 AT 0900AM CHECK IN AT 0700AM LABS TO BE DONE THE MORNING OF 06.29.25//ML Billing Information: * Procedure Codes: * Electronic signature of Chino Siddiqi MD on 08/19/2025 at 08:18 AM CDT Sign off status: Pending * Provider: Jason Siddiqi M.D. Date: 0 06/29/2025 Generated for Chapis sparks/Dominique/Molly on: 08:18 AM CDT
[2025-08-19 08:12] VITALS: BP 177/84; PULSE 72; RESP 18; TEMP 37.1; O2SAT 97; BMI 29.7
--- OUTSIDE RECORDS SUMMARY | 2025-08-19 08:17 | XMS_ITS | Clinical Summary ---
Author Organization [facility] Address [address] [phone] Phone Care Team Providers Care Senior Information Security Architect Name Role Phone Tiarra Fontanez MD Primary Care Provider [phone] Allergies No known active allergies Medications furosemide (LASIX) 20 mg tablet Take 20 mg by mouth 2 times daily. 07/28/2023 Active tamsulosin (FLOMAX) 0.4 mg capsule Take 0.4 mg by mouth daily. 07/28/2023 Active lisinopriL (PRINIVIL) 20 mg tablet Take 20 mg by mouth daily. 07/28/2023 Active levothyroxine 25 mcg tablet Take 25 mcg by mouth daily. 07/28/2023 Active rosuvastatin (CRESTOR) 20 mg tablet Take 20 mg by mouth daily. 07/28/2023 Active potassium chloride (KLOR-CON) 10 mEq Extended Release tablet Take 10 mEq by mouth 2 times daily with meals. 07/28/2023 Active polyethylene glycol 3350 (Miralax) 17 gram/dose Powder Take 1 Scoop (17 Grams) by mouth daily. Dissolve in 8 ounces of fluid and drink entire liquid 527 Gram 02/06/2024 Active coenzyme Q10 100 mg Capsule Take 100 mg by mouth daily. Active aspirin (TODD CHEWABLE) 81 mg Tablet, Chewable Take 81 mg by mouth daily. Active cyanocobalamin (VITAMIN B-12) 500 mcg tablet Take 500 mcg by mouth daily. Active Cholecalciferol , Vitamin D3, 50 mcg (2,000 unit) Capsule Take 50 mcg by mouth daily. Active Active Problems Problem Noted Date Diagnosed Date Asymptomatic hypertensive urgency 08/30/2024 Hypervolemia 08/30/2024 Status post total left knee replacement 02/06/20 24 Preoperative general physical examination 2023 Obstructive sleep apnea 12/13/2023 CAD (coronary atherosclerotic disease) AF (atrial fibrillation) 12/13/2023 Benign prostatic hyperplasia with lower urinary tract symptoms 12/13/2023 Abdominal aortic aneurysm 12/13/2023 Aortic stenosis 12/13/2023 Dyslipidemia 12/13/2023 Primary hypertension 12/13/2023 Pleural effusion 12/13/2023 History of melanoma 12/13/2023 Prediabetes 12/13/2023 COPD (chronic obstructive pulmonary disease) 07/2024 Anemia 12/13/2023 Primary osteoarthritis of left knee 11/13/2023 Encounters Date Type Department Care Team Description 08/17/2025 External Device Data STL ABSTRACTION Provider, Abstract 08/17/2025 External Device Data STL ABSTRACTION Provider, Abstract from Last 3 Months Family History Relation Name Status Comments Father Mother Social History Tobacco Use Types Packs/Day Years Used Date Smoking Tobacco: Never Smokeless Tobacco: Never Tobacco Cessation:Counseling Given: Not Answered Alcohol Use Standard Drinks/Week Comments Not Currently 0 (1 standard drink = 0.6 oz pur e alcohol) Feeling Safe Answer Date Recorded Are you in a relationship wi th someone who hurts you emotionally and/or physically? No 08/30/2024 Food Insecurity Answer Date Recorded Social/Environmental Concerns No concerns Transportation Needs Answer Date Record ed Social/Environmental Concerns No concerns Housing Stability Answer Date Recorded Social/Environmental Concerns No concerns Utility Needs Answer Date Recorded Social/Environmental Concerns No concerns Sex and Gender Information Value Date Recorded Sex Assigned at Not on file Legal Sex Male 10:55 AM CDT Gender Identity Not on file Sexual Orientation Not on file Last Filed Vital Signs Vital Sign Reading Time Taken Comments Blood Pressure 143/60 02/10/2025 2:06 PM CDT Pulse 69 08/30/2024 3:15 PM CDT Temperature 36.3 C (97.3 F) 08/30/2024 12:17 PM CDT Respiratory Rate 19 08/30/2024 3:15 PM CDT Oxygen Saturation 95% 08/30/2024 3:15 PM CDT Inhaled Oxygen Concentration - - Weight 98.4 kg (217 lb) 02/10/2025 2:06 PM CDT Height 182.9 cm (6') 02/10/2025 2:06 PM CDT Body Mass Index 29.43 02/10/2025 2:06 PM CDT Plan of Treatment Health Maintenance Due Date Last Done Comments DTAP/TDAP/TD VACCINES (1 - Tdap) 1957 PNEUMOCOCCAL VACCINE 50+ YEARS (1 of 2 - PCV) 11/18/18 58 ZOSTER VACCINE (1 of 2) 1988 RSV VACCINE (60+ or ) (1 - 1-dose 75+ series) 2013 INFLUENZA VACCINE (#1) 2025 Goals Goal Patient Goal Type Associated Problems Recent Progress Patient-Stated? Author HYPERTENSIO N CARE PLAN GOAL Care Plan LIZ MYC HYPERTENSION CARE PLAN PROBLEM No Mally Davila [employer] Devices Implanted Type Area Data Analytics Chief Scientist Device Identifier Shelf Expiration Date Model / Serial / Lot Bsplt Tib Attune Fix Brng Sz 8 Implanted:Qty: 1 on 02/06/2024 by Thomas Piña MD at [facility] Left: Knee [id number] 08/03/2032 [id number] / / [id number] Description:NO CHARGE PER IN VOICE. INCLUDED IN [id number] Comp Fem Attune Sz8 Implanted:Qty: 1 on 02/06/2024 by Thomas Piña MD at [facility] Left: Knee [id number] 08/03/2033 [id number] / / [id number] Description:NO CHARGE PER IN VOICE. INCLUDED IN [id number] Tin Insert Fixed Bearing Sz 8 12mm Implanted:Qty: 1 on 02/06/2024 by Thomas Piña MD at [facility] Left: Knee 08/03/2031 [id number] / / [id number] Description:NO CHARGE PER IN VOICE. INCLUDED IN [id number] Attune Fb Cementle [id number] Implanted:Qty: 1 on 02/06/2024 by Thomas Piña MD at [facility] Left: Knee Additional Health Concerns Active Problems Noted Date Diagnosed Date LIZ MYC HYPERTENSION CARE PLAN PROBLEM Insurance [employer] PPO MCR Advance Directives For more information, please contact: [phone] * Default Full Code - Needs Discussion (Latest Code Status on File) Date Activated Date Inactivated Comments 02/07/2024 9:52 AM 02/12/2024 8:37 PM * Full Code Date Activated Date Inactivated Comments 02/06/2024 8:47 AM 02/07/2024 9:52 AM Care Teams Senior Information Security Architect Relationship Specialty Start Date End Date Tiarra Fontanez MD [address] [facility] [place] [address] PCP - General Family Practice 07/15/23
--- OUTSIDE RECORDS SUMMARY | 2025-08-19 08:18 | XMS_ITS | Encounter Summary ---
Author Organization [employer] Address [address] [place] [address] Care Team Providers Care Stem Roller Operator Name Role Phone Tiarra Fontanez MD Primary Care Provider [phone]- [phone] Encounter Details Date Type Department Care Team (Late st Contact Info) Description 08/17/2025 External Device Data STL ABSTRACTION Provider, Abstract NO ADDRESS ON FILE Social History Tobacco Use Types Packs/Day Years Used Date Smoking Tobacco: Never Smokeless Tobacco: Never Alcohol Use Standard Drinks/Week Comments Not Currently [...] on file Sexual Orientation Not on file documented as of this encounter Plan of Treatment Not on file documented as of this encounter Goals Goal Patient Goal Type Associated Problems Recent Progress Patient-Stated? Author GUERDA N CARE PLAN GOAL Care Plan LIZ MYC HYPERTENSION CARE PLAN PROBLEM No Mally Davila documented as of this encounter Visit Diagnoses Not on filedocumented in this encounter Additional Health Concerns Active Problems Noted Date Diagnosed Date LIZ MYC HYPERTENSION CARE PLAN PROBLEM 4 documented as of this encounter Care Teams Stem Roller Operator Relationship Specialty Start Date End Date Tiarra Fontanez MD [address] [place] [phone] PCP - General Family Practice 07/15/23 documented as of this encounter
--- OUTSIDE RECORDS SUMMARY | 2025-08-19 08:18 | XMS_ITS | Patient Health Record ---
Author Organization [facility] Address [address] [place] [address] Care Team Providers Care Visitor Services Specialist Name Role Phone Katie Otto APRN Primary Care Provider Maci Sotomayor Unavailable [phone] Jaqueline Archuleta Unavailable Unavailable Bobby Ruth Unavailable [phone] Chino Siddiqi Unavailable [phone] Leatha Liu Unavailable [phone] Allergies No Known Allergies Results Component Value Reference Range Flag Notes Echo Complete [id number] (Not yet reviewed by provider) Interpretation: Performing Lab: Notes/Report: Cardiopulmonary Services Name: JAMISON VIGIL Study Date: 05/18/2025 : 1940 Patient Location: [facility] Age: 84 yrs Gender: Male Height: 72 in Weight: 219 lb HR: 40 BSA: 2.2 m2 Reason For Study: ,AFIB,CAD,Pulm Hypertension,HF Interpretation Summary The left ventricle is normal in size. Left ventricular systolic function is normal. Left Ventricular Function is estimated to be 55-60%. There is mild concentric left ventricular hypertrophy. The right ventricle is mild to moderately dilated. Mild mitral stenosis. There is mild mitral regurgitation. There is moderate tricuspid regurgitation. The left atrium is moderate to severely dilated. The right atrium is severely dilated. Hemodynamically significant valvular aortic stenosis cannot be excluded. Moderate to severe valvular aortic stenosis with MG of 26 mmHg, calculated ALEXA of 0.9cm2 by continuity equation. Recommendation: Invasive hemodynamic study with Right and Left heart catheterization for definitive assessment of severity. Recommendations Continue present medication. Will continue to follow regularly. Left Ventricle The left ventricle is normal in size. There is mild concentric left ventricular hypertrophy. Left Ventricular Function is estimated to be 55-60%. Left ventricular systolic function is normal. Right Ventricle The right ventricle is mild to moderately dilated. Atria The left atrium is moderate to severely dilated. The right atrium is severely dilated. Great Vessels The aortic root is normal size. Pericardium/Pleural There is no pericardial effusion. There is no pleural effusion. Mitral Valve There is mild mitral regurgitation. Aortic Valve Aortic valve is moderately calcified. Hemodynamically significant valvular aortic stenosis cannot be excluded. Moderate to severe valvular aortic stenosis. Trace aortic regurgitation. Tricuspid Valve There is moderate tricuspid regurgitation. Right ventricular systolic pressure is elevated at 40-50mmHg. Pulmonic Valve Mild pulmonic valvular regurgitation. MMode/2D Measurements & Calculations IVSd: 1.0 cm LVIDd: 4.9 cm FS: 26.9 % LVIDs: 3.6 cm EDV(Teich): 114.3 ml LVPWd: 1.8 cm ESV(Teich): 54.5 ml EF(Teich): 52.4 % EPSS: 0.44 cm Ao root diam: 3.5 cm asc Aorta Diam: 3.4 cm Ao root area: 9.6 cm2 LVOT diam: 2.0 cm LVOT area: 3.1 cm2 Time Measurements Aortic HR: 70.1 BPM MM HR: 81.8 BPM Doppler Measurements & Calculations MV E max kishan: 132.1 cm/secMV V2 max: 193.5 cm/sec MV dec slope: 524.8 cm/sec2 MV A max kishan: 0.44 cm/sec MV max P.0 mmHg MV dec time: 0.25 sec MV E/A: 302.3 MV V2 mean: 77.6 cm/sec MV mean P.6 mmHg MV V2 VTI: 34.9 cm MVA(VTI): 1.8 cm2 Ao V2 max: 315.5 cm/sec LV V1 max P.7 mmHg CO(LVOT): 4.5 l/min Ao max P.9 mmHg LV V1 mean P.8 mmHg SV(LVOT): 63.8 ml Ao V2 mean: 215.3 cm/sec LV V1 max: 96.1 cm/sec Ao mean P.6 mmHg LV V1 mean: 62.0 cm/sec Ao V2 VTI: 67.6 cm LV V1 VTI: 20.6 cm ALEXA(I,D): 0.94 cm2 ALEXA(V,D): 0.94 cm2 PA V2 max: 140.5 cm/sec PI end-d kishan: 85.7 cm/sec TR max kishan: 380.2 cm/sec PA max P.9 mmHg TR max P.8 mmHg RVSP(TR): 67.8 mmHg RAP systole: 10.0 mmHg Ordering Physician: Chino Siddiqi Referring Physician: Chino Siddiqi Performed By: Sunny Lambert zzOxyhemoglobin (Not yet rev iewed by provider) Interpretation: Performing Lab: Notes/Report: Oxyhemoglobin AO 94.1 94-97 % NA Schedule Confirmation (Not y et reviewed by provider) Interpretation: Performing Lab: Notes/Report: Heart Cath Rt&Lt poss PTCA zzOxyhemoglobin (Not yet rev iewed by provider) Interpretation: Performing Lab: Notes/Report: Oxyhemoglobin PA 76.3 94-97 % NA POCT-ACT--NO CPT (Not yet re viewed by provider) Interpretation: Performing Lab: Notes/Report: POCT-ACT 123 75-120 SEC HI WBC Auto Diff--15498 (Not ye t reviewed by provider) Interpretation: Performing Lab: Notes/Report: Added by Discern Rules Neutro Auto% 49.1 40.0-70.0 % Lymph Auto% 37.2 22.0-44.0 % [place] Auto% 12.1 3.0-7.0 % HI Eos Auto% .9 2.0-4.0 % LOW Baso Auto% 0.5 0.0-1.0 % NRBC% .00 .00-.20 /100 intact WBC's Neutro Abs 2.15 .80-7.70 Absolute Neutrophil Count 2150 NA Lymph Abs 1.63 .10-4.10 [place] Abs .53 .20-1.00 Eos Abs .04 .00-.40 Baso Abs .02 .00-.20 NRBC# .00 .00-.20 Imm Gran Abs .01 .00-.10 Imm Gran% .2 .0-.4 % CBC Reflex Man Diff 86059, 8 5007 (Not yet reviewed by provider) Interpretation: Performing Lab: Notes/Report: WBC 4.4 4.5-11.0 X10'3 LOW RBC 3.77 4.50-5.90 X10'6 LOW Hgb 11.9 13.5-17.5 G/DL LOW Hct 34.6 41.0-53.0 % LOW MCV 91.8 80.0-100.0 FL MCH 31.6 27.0-31.0 PG HI MCHC 34.4 31.0-37.0 G/DL Platelet 150 150-400 X10'3 RDW-SD 46.8 35.0-49.0 FL RDW-CV 13.7 12.2-15.6 % MPV 9.3 9.2-12.0 FL Review Auto Diff Conf Partial Thromboplastin Time 24229 (Not yet reviewed by provider) Interpretation: Performing Lab: Notes/Report: PTT 28.8 22.6-31.8 SEC Therapeutic Range: 60-100. Critical Value Starting at > 100. Basic Metabolic Panel (BMP) 21030 (Not yet reviewed by provider) Interpretation: Performing Lab: Notes/Report: Sodium 137 136-145 MMOL/L Potassium 3.3 3.5-5.1 MMOL/L LOW Chloride 96 98-107 MMOL/L LOW CO2 29.2 20.0-31.0 MMOL/L Glucose Serum 95 71-110 MG/DL Testing p erformed at [facility], [address] [place] [address] [place] [address]. CLIA ID#: [id number] BUN 14 7-21 MG/DL Creat .73 .57-1.17 MG/DL M-qmnujv-y-benzoquino ne imine (NAPQI) is a metabolite of acetaminophen, NAPQI concentrations of apparoximately 10 mg/L correlation to toxic levels of acetaminophen demonstrates a greater than or equil to 10% change in results. NAPQI concentrations greater than this may lead to falsely depressed results for patient samples. Use of this assay is not recommended for patients undergoing treatment with phenindione, due to the potential for falsely depressed results. GFR 88.3 NA Calculation pe rformed from GFR calculator provided by the [employer]. Glomerular Filtration rate(GRF) is the best overall index of kidney function. Normal GFR varies according to age,sex, body size, and declines with age. The National Kidney Foundation recommends using the CKD-EPI Creatinine Equation(2020) to estimate GFR. Anion Gap 15 5-15 BUN/Creat Ratio 19.2 12.0-20.0 % Calcium 9.7 8.7-10.4 MG/DL Osmo Serum,Calculated 284 280-300 MOSM/KG Prothrombin Time 28053 (Not yet reviewed by provider) Interpretation: Performing Lab: Notes/Report: ProTime 12.0 9.1-11.9 SEC HI Normal Range : 9.1-11.9 INR 1.14 .90-1.20 Therapeutic Range: 2.0-3.0 Therapaeutic Range for heart valve replacement: 2.5-3.50 zzzCTA TAVR RAD (Not yet rev iewed by provider) Interpretation: Performing Lab: Notes/Report: See Below For Report Technique: Axial 3 mm images were acquired through the chest, abdomen, Read See Below For Report Schedule Confirmation (Not y et reviewed by provider) Interpretation: Performing Lab: Notes/Report: CTA TAVR RAD Hemoglobin 49732 (Not yet re viewed by provider) Interpretation: Performing Lab: Notes/Report: Diagnosis Description: Nonrheumatic aortic (valve) stenosis Diagnosis Description: Paroxysmal atrial fibrillation Diagnosis Description: Pulmonary hypertension, unspecified Diagnosis Description: 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 Read See Below For Report Schedule Confirmation (Not y et reviewed by provider) Interpretation: Performing Lab: Notes/Report: Heart Cath Rt&Lt poss PTCA ZZZHeart Cath RT (Not yet re viewed by provider) Interpretation: Performing Lab: Notes/Report: [id number]=iSite Echo Complete [id number] (Not yet reviewed by provider) Interpretation: Performing Lab: Notes/Report: [id number]=iSite Schedule Confirmation (Not y et reviewed by provider) Interpretation: Performing Lab: Notes/Report: CTA TAVR RAD Schedule Confirmation (Not y et reviewed by provider) Interpretation: Performing Lab: Notes/Report: CTA TAVR RAD zzzCTA TAVR RAD (Not yet rev iewed by provider) Interpretation: Performing Lab: Notes/Report: [id number]&org=iSite CTA TAVR - 64091, 19658, 755 72 (Not yet reviewed by provider) Interpretation: Performing Lab: Notes/Report: See Below For Report CTA TAVR Kellie MendosaFILIPPO 05/10/2025 03:12:02 PM CDT > SAME DAY LABS ALBUMIN, BMP, HEMOGLOBIN, PRO BNP DAY OF PROCEDURE Read See Below For Report Creat Proc NC--NO PCT (Not y et reviewed by provider) Interpretation: Performing Lab: Notes/Report: Creat .66 .57-1.17 MG/DL G-hknkvf-m-benzoquino ne imine (NAPQI) is a metabolite of acetaminophen, NAPQI concentrations of apparoximately 10 mg/L correlation to toxic levels of acetaminophen demonstrates a greater than or equil to 10% change in results. NAPQI concentrations greater than this may lead to falsely depressed results for patient samples. Use of this assay is not recommended for patients undergoing treatment with phenindione, due to the potential for falsely depressed results. 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 PBNP 113.0 .0-125.0 PG/ML Basic Metabolic Panel (BMP) 94039 (Not yet reviewed by provider) Interpretation: Performing Lab: Notes/Report: Diagnosis Description: Nonrheumatic aortic (valve) stenosis Diagnosis Description: Paroxysmal atrial fibrillation Diagnosis Description: Pulmonary hypertension, unspecified Diagnosis Description: 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 [address]. CLIA ID#: [id number] BUN 20 7-21 MG/DL Creat .72 .57-1.17 MG/DL S-anelua-i-benzoquino ne imine (NAPQI) is a metabolite of acetaminophen, NAPQI concentrations of apparoximately 10 mg/L correlation to toxic levels of acetaminophen demonstrates a greater than or equil to 10% change in results. NAPQI concentrations greater than this may lead to falsely depressed results for patient samples. Use of this assay is not recommended for patients undergoing treatment with phenindione, due to the potential for falsely depressed results. GFR 88.6 NA Calculation pe rformed from GFR calculator provided by the [employer]. Glomerular Filtration rate(GRF) is the best overall index of kidney function. Normal GFR varies according to age,sex, body size, and declines with age. The National Kidney Foundation recommends using the CKD-EPI Creatinine Equation(2020) to estimate GFR. 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 Albumin 5.3 3.2-4.8 G/DL HI CTA TAVR - 00473, 08878, 755 72 (Not yet reviewed by provider) Interpretation: Performing Lab: Notes/Report: [id number]=iSite Reason For Referral Reason PULM HYPERTENSION, L OCULATED PLEURAL EFFUSION 04/06: Received notes and imaging reports and ciaraharjered 04/08: 1 wk per Faraz Scheduled 04/15/2025 @ 1:50 PM Diagnosis 1 Pulmonary hypertensi on (I27.20) Diagnosis 2 Pleural effusion (J9 0) Referred Organization [facility] Referred Provider Bobby Ruth Referred Address [address] [place] [address] JACK HERNÁNDEZ,VALENTIN,[address], General Notes Cece Hearn 04/08 11:19:16 AM >Scheduled 04/15/2025 @ 1:50 PM Referral Priority Stat Reason Appt 05/10/25 Aortic stenosis, CAD, afib Diagnosis 1 Nonrheumatic aortic (valve) stenosis (I35.0) Diagnosis 2 Atherosclerosis of n ative coronary artery without angina pectoris, unspecified whether barrow or transplanted heart (I25.10) Diagnosis 3 Paroxysmal atrial fi brillation (I48.0) Referring Provider First Name Jaqueline Referring Provider Last Name Pankaj Referring Provider Speciality Nurse Alfred godfrey Referred Organization [facility] Referred Provider Chino Siddiqi Referred Address [address] [place] [address],[facility],[place],[address], Referred Provider Specialty Intervention al Cardiology Referral Priority Routine Medications Medication SIG (Take, Route, Frequency, Duration) Notes Start Date End Date Status Cyanocobalamin 50 MCG Tablet as directed Orally Active hydroCHLOROthiazide 12.5 MG Capsule 1 capsule in the morning Orally Once a day Active Eliquis 5 MG Tablet as directed, 1/2 tab twice daily x 14 days Orally twice a day; Duration: 30 days 2.5mg twice daily for two weeks, then increase to 5mg twice daily after, start 07/27/25 07/27/2025 Active Spironolactone 25 MG Tablet 1 tablet Ora lly Once a day; Duration: 30 days 05/10/2025 09/07/2025 Active amLODIPine Besylate 5 MG Tablet 1 tablet Orally twice a day Active Vitamin D3 50 MCG (1999 UT) Capsule 1 capsule Orally Once a day Active Tamsulosin HCl 0.4 MG Capsule 1 capsule Orally Once a day Active CoQ10 100 MG Capsule as directed Orally Active Potassium Chloride ER 20 MEQ Tablet Extended Release 1 tablet with food Orally twice a day Active Rosuvastatin Calcium 20 MG Tablet 1 tablet Orally Once a day Active Levothyroxine Sodium 25 MCG Tablet 1 tablet in the morning on an empty stomach Orally Once a day Active Lisinopril 40 MG Tablet 1 tablet Orally Once a day Active Social History Tobacco Use: Social History Observation Description Date Details (start date - stop date) Never Smoker NA - NA Social History Drugs/Alcohol: Social Info Question Answer Notes Caffeine Intake: none Tobacco Use: Social Info Question Answer Notes Tobacco Control (Standard) Tobacco use: Nonsmoker Additional Details Category Social Info Options Details Drugs/Alcohol: Do you drink alcohol? 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) Active confirmed Problem Heart failure (71685293) Heart failure, unspecified (I50.9) Active confirmed Problem Pulmonary hypertension (47764943) Pulmonary hypertension (I27.20) Active confirmed Problem Coronary artery disease (19193773) CAD (coronary artery disease) (I25.10) Active confirmed Problem 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 (986293910888011) Atherosclerosis of barrow coronary artery without angina pectoris, unspecified whether barrow or transplanted heart (I25.10) Active confirmed Vital Signs Heart Rate 61 /min 07/27/2025 Temperature 98 degrees Fahrenheit 04/15/2025 Respiratory Rate 18 /min 04/15/2025 Oximetry 96 % 07/27/2025 Height-cm 182.88 cm 07/27/2025 Blood pressure diastolic 60 mm Hg 07/27/2025 Weight-kg 94.35 kg 07/27/2025 Height 72 in 07/27/2025 Blood pressure systolic 140 mm Hg 07/27/2025 Weight 208 lbs 07/27/2025 BMI 28.21 kg/m2 07/27/2025 Procedures Procedure Date Ordered Date Performed Result Body Sit e Coronary Angio with Right an d Left Heart Cath 05/10/2025 05/14/2025 N/A Encounters Encounter Location Date Provider Diagnosis [facility] [address] [place] [address], [place] [address] 05/18/2025 [facility] [address] [place] [address], [place] [address] 06/29/2025 [facility] [address] [place] [address] [place] [address] 04/15/2025 Bobby Ruth Shortness of breath R06.02 ; Pulmonary hypertension I27.20 and Pleural effusion J90 [facility] [address] [place] [address] 05/10/2025 Chino Alirhayim Nonrheumatic aortic (valve) stenosis I35.0 ; Paroxysmal atrial fibrillation I48.0 ; Pulmonary hypertension I27.20 ; Atherosclerosis of barrow coronary artery without angina pectoris, unspecified whether barrow or transplanted heart I25.10 and Heart failure, unspecified I50.9 [facility] [address] [place] [address], [place] [address] 06/15/2025 Maci Tessie Nonrheumatic aortic (valve) stenosis I35.0 ; Paroxysmal atrial fibrillation I48.0 ; Pulmonary hypertension I27.20 ; Atherosclerosis of barrow coronary artery without angina pectoris, unspecified whether barrow or transplanted heart I25.10 and Heart failure, unspecified I50.9 [facility] [address] [place] [address], [place] [address] 07/27/2025 Maci Tessie Paroxysmal atrial fibrillation I48.0 and Nonrheumatic aortic (valve) stenosis I35.0 [facility] [address] [place] [address] 07/27/2025 Chino Alirhayadan Paroxysmal atrial fibrillation I48.0 [facility] [address] [place] [address], [place] [address] 05/06/2025 Chino Alirhayadan [facility] [address] [place] [address], [place] [address] 05/10/2025 Chino Alirhayim [facility] [address] [place] [address], [place] [address] 05/10/2025 Chino Alirhayim [facility] [address] [place] [address], [place] [address] 05/11/2025 Chino Alirhayim Pulmonary hypertensi on I27.20 [facility] [address] [place] [address], [place] [address] 05/12/2025 Chino Alirhayadan [facility] [address] [place] [address], [place] [address] 05/12/2025 Chino Alirhayim [facility] [address] [place] [address], [place] [address] 05/17/2025 Chino Alirhayadan [facility] [address] [place] [address], [place] [address] 05/19/2025 Chino Siddiqi [facility] [address] [place] [address] 05/19/2025 Chino Siddiqi [facility] [address] [place] [address] 05/20/2025 Chino Zimmermanadan [facility] [address] [place] [address], [place] [address] 05/24/2025 Chino Zimmermanadan [facility] [address] [place] [address], [place] [address] 05/24/2025 Chino Siddiqi [facility] [address] [place] [address], [place] [address] 05/31/2025 [facility] [address] [place] [address], [place] [address] 06/30/2025 Leatha Ostcurt [facility] [address] [place] [address], [place] [address] 07/09/2025 Maci Hursthite [facility] [address] [place] [address], [place] [address] 08/02/2025 Chino Siddiqi Assessments Encounter Date Diagnosis (ICD Code) Assessment Notes Treatment Notes Treatment Clinical Notes Section Notes 05/10/2025 Nonrheumatic aortic (valve) stenosis (ICD-10 - I35.0) ECG-atrial fibrillation with frequent PVCs, HR 66 bpm, left posterior fascicular block Heart failure-bilatera l pedal edema and some congestion on exam. > Increase Lasix to 40 mg twice daily. Add spironolactone 25 mg daily. > Recheck basic metabolic panel in 1 week. He will then see Deepika in 8 to 10 days to confirm that renal function remains stable. > Obtain echocardiogram. Aortic stenosis-moderat e to severe as per outside report. Very symptomatic with severe shortness of breath. NYHA class III/IV > Right and left heart cardiac catheterization. Will perform an invasive hemodynamic study of the aortic valve > Obtain CTA TAVR for planning purposes. CAD-status post four-vessel CABG in [address] [facility]. > Not taking aspirin. 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 > We will have him sign a records release form from [place] [facility] Persistent atrial fibrillation-not on anticoagulation due to the above. Follow-up in [place] in 1 to 2 weeks 05/10/2025 Paroxysmal atrial fibrillation (ICD-10 - I48.0) ECG-atrial fibrillation with frequent PVCs, HR 66 bpm, left posterior fascicular block Heart failure-bilatera l pedal edema and some congestion on exam. > Increase Lasix to 40 mg twice daily. Add spironolactone 25 mg daily. > Recheck basic metabolic panel in 1 week. He will then see Deepika in 8 to 10 days to confirm that renal function remains stable. > Obtain echocardiogram. Aortic stenosis-moderat e to severe as per outside report. Very symptomatic with severe shortness of breath. NYHA class III/IV > Right and left heart cardiac catheterization. Will perform an invasive hemodynamic study of the aortic valve > Obtain CTA TAVR for planning purposes. CAD-status post four-vessel CABG in [address] [facility]. > Not taking aspirin. 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 > We will have him sign a records release form from [facility] Persistent atrial fibrillation-not on anticoagulation due to the above. Follow-up in [place] in 1 to 2 weeks 06/15/2025 Nonrheumatic aortic (valve) stenosis (ICD-10 - I35.0) Heart Cath 06/29/25 ECG-atrial fibrillation with frequent PVCs, HR 66 bpm, left posterior fascicular block Aortic stenosis-moderat e to severe as per outside report. Very symptomatic with severe shortness of breath. NYHA class III/IV > Right and left heart cardiac catheterization. Will perform an invasive hemodynamic study of the aortic valve CAD-status post four-vessel CABG [place] [address] [facility]. > Not taking aspirin. 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 > We will have him sign a records release form from [place] Persistent atrial fibrillation-not on anticoagulation due to the above. Sees Dr Woods in [facility] and has told patient to start blood thinner Eliquis 06/15/2025 Paroxysmal atrial fibrillation (ICD-10 - I48.0) ECG-atrial fibrillation with frequent PVCs, HR 66 bpm, left posterior fascicular block Aortic stenosis-moderat e to severe as per outside report. Very symptomatic with severe shortness of breath. NYHA class III/IV > Right and left heart cardiac catheterization. Will perform an invasive hemodynamic study of the aortic valve CAD-status post four-vessel CABG in [address] [facility]. > Not taking aspirin. 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 > We will have him sign a records release form from [facility] Persistent atrial fibrillation-not on anticoagulation due to the above. Sees Dr Woods in [facility] and has told patient to start blood thinner Eliquis 07/27/2025 Paroxysmal atrial fibrillation (ICD-10 - I48.0) need to get started on Eliquis 2.5mg x 2 weeks then 5mg bid 07/27/2025 Paroxysmal atrial fibrillation (ICD-10 - I48.0) A full medication reconciliation was completed with this patient. Counseled on directions for use, side effects, and contraindications of Eliquis, including s/sx's of bleeding, clots, and steps to take if head trauma occurs. Reviewed appropriate labs. Patient assistance: Gave x 2 weeks of 2.5 mg samples, then initiate 5 mg BID thereafter. Given a 30 day free trial copay card, then instructed patient to sign on for Extra Help LIS program in case further assistance is needed. Will refer back to Dr. Siddiqi for continued monitoring and management of Eliquis therapy. 04/15/2025 Shortness of breath (ICD-10 - R06.02) Secondary to congestive heart failure. He is being planned for valve surgery. 04/15/2025 Pulmonary hypertension (ICD-10 - I27.20) I have emphasized the importance of low salt intake. 05/11/2025 Pulmonary hypertension (ICD-10 - I27.20) 07/27/2025 Nonrheumatic aortic (valve) stenosis (ICD-10 - I35.0) 04/15/2025 Pleural effusion (ICD-10 - J90) Chronic and unchanged compared to CT imaging from 2022. This is likely the effect of post bypass surgery. No further workup needed. 06/15/2025 Pulmonary hypertension (ICD-10 - I27.20) ECG-atrial fibrillation with frequent PVCs, HR 66 bpm, left posterior fascicular block Aortic stenosis-moderat e to severe as per outside report. Very symptomatic with severe shortness of breath. NYHA class III/IV > Right and left heart cardiac catheterization. Will perform an invasive hemodynamic study of the aortic valve CAD-status post four-vessel CABG in [address] [facility]. > Not taking aspirin. 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 > We will have him sign a records release form from [facility] Persistent atrial fibrillation-not on anticoagulation due to the above. Sees Dr Woods in [facility] and has told patient to start blood thinner Eliquis 05/10/2025 Pulmonary hypertension (ICD-10 - I27.20) ECG-atrial fibrillation with frequent PVCs, HR 66 bpm, left posterior fascicular block Heart failure-bilatera l pedal edema and some congestion on exam. > Increase Lasix to 40 mg twice daily. Add spironolactone 25 mg daily. > Recheck basic metabolic panel in 1 week. He will then see [facility] in 8 to 10 days to confirm that renal function remains stable. > Obtain echocardiogram. Aortic stenosis-moderat e to severe as per outside report. Very symptomatic with severe shortness of breath. NYHA class III/IV > Right and left heart cardiac catheterization. Will perform an invasive hemodynamic study of the aortic valve > Obtain CTA TAVR for planning purposes. CAD-status post four-vessel CABG in [address] [facility]. > Not taking aspirin. 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 > We will have him sign a records release form from [place] Persistent atrial fibrillation-not on anticoagulation due to the above. 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 > Increase Lasix to 40 mg twice daily. Add spironolactone 25 mg daily. > Recheck basic metabolic panel in 1 week. He will then see [facility] in 8 to 10 days to confirm that renal function remains stable. > Obtain echocardiogram. Aortic stenosis-moderat e to severe as per outside report. Very symptomatic with severe shortness of breath. NYHA class III/IV > Right and left heart cardiac catheterization. Will perform an invasive hemodynamic study of the aortic valve > Obtain CTA TAVR for planning purposes. CAD-status post four-vessel CABG in [address] [facility]. > Not taking aspirin. 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 > We will have him sign a records release form from [facility] atrial fibrillation-not on anticoagulation due to the above. 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 Very symptomatic with severe shortness of breath. NYHA class III/IV > Right and left heart cardiac catheterization. Will perform an invasive hemodynamic study of the aortic valve CAD-status post four-vessel CABG in [address] [facility]. > Not taking aspirin. 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 > We will have him sign a records release form from [facility] atrial fibrillation-not on anticoagulation due to the above. Sees Dr Woods in [facility] and has told patient to start blood thinner Eliquis 06/15/2025 Heart failure, unspecified (ICD-10 - I50.9) Decrease KCL 20meq to 1 tab bid ECG-atrial fibrillation with frequent PVCs, HR 66 bpm, left posterior fascicular block Aortic stenosis-moderat e to severe as per outside report. Very symptomatic with severe shortness of breath. NYHA class III/IV > Right and left heart cardiac catheterization. Will perform an invasive hemodynamic study of the aortic valve CAD-status post four-vessel CABG in [address] [facility]. > Not taking aspirin. 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 > We will have him sign a records release form from [place] Persistent atrial fibrillation-not on anticoagulation due to the above. Sees Dr Woods in [facility] and has told patient to start blood thinner Eliquis 05/10/2025 Heart failure, unspecified (ICD-10 - I50.9) ECG-atrial fibrillation with frequent PVCs, HR 66 bpm, left posterior fascicular block Heart failure-bilatera l pedal edema and some congestion on exam. > Increase Lasix to 40 mg twice daily. Add spironolactone 25 mg daily. > Recheck basic metabolic panel in 1 week. He will then see [facility] in 8 to 10 days to confirm that renal function remains stable. > Obtain echocardiogram. Aortic stenosis-moderat e to severe as per outside report. Very symptomatic with severe shortness of breath. NYHA class III/IV > Right and left heart cardiac catheterization. Will perform an invasive hemodynamic study of the aortic valve > Obtain CTA TAVR for planning purposes. CAD-status post four-vessel CABG in [address] [facility]. > Not taking aspirin. 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 > We will have him sign a records release form from [place] Persistent atrial fibrillation-not on anticoagulation due to the above. Follow-up in [place] in 1 to 2 weeks 04/15/2025 Other I, Chely Walsh, am scribing for, and in the presence of Dr. Bobby Ruth. I, Dr. Bobby Ruth, personally performed the services described in this documentati on, as scribed by Chely Walsh in my presence, and it is both accurate and complete. Plan Of Treatment Pending Test Test Name Order Date Albumin 08367 05/18/2025 Albumin 56789 05/10/2025 Prothrombin Time 61424 05/10/2025 Prothrombin Time 93699 06/29/2025 Basic Metabolic Panel (BMP) 29545 2024 Basic Metabolic Panel (BMP) 71079 2024 Basic Metabolic Panel (BMP) 03253 2024 Hemoglobin 12974 05/18/2025 Hemoglobin 53117 05/10/2025 Lipid Panel Reflex DLDL 65534, 68621 05/2025 Partial Thromboplastin Time 84368 2024 Partial Thromboplastin Time 00934 2024 CBC Reflex Man Diff 37132, 03106 025 CBC Reflex Man Diff 68886, 30353 025 Pro BNP 10703 05/18/2025 Pro BNP 28095 05/10/2025 Echo Complete EC-[id number] 05/18/2025 Echo Complete EC-19386 05/18/2025 Electrocardiogram 12 Lead Tracing-29431 05/10/2025 WBC Auto Diff--05863 06/29/2025 Bun Proc NC--NO CPT 05/18/2025 Creat Proc NC--NO PCT 05/18/2025 POCT-ACT--NO CPT 06/29/2025 CTA TAVR - 58881, 19606, 84680 CTA TAVR - 60733, 14328, 91060 zzzCTA TAVR RAD 05/18/2025 zzzCTA TAVR RAD 05/18/2025 Electrocardiogram (EKG) - 67358 05/10/20 ZZZHeart Cath RT 06/29/2025 ZZZHeart Cath RT 06/29/2025 Schedule Confirmation 06/29/2025 Schedule Confirmation 05/18/2025 Schedule Confirmation 05/18/2025 Schedule Confirmation 06/29/2025 Schedule Confirmation 05/18/2025 zzOxyhemoglobin 06/29/2025 zzOxyhemoglobin 06/29/2025 Next Appt Details Provider Name:Chino Siddiqi , 09/10/2025 08:45:00 AM, [address], [address], Provider Name:Chino Siddiqi , 09/10/2025 09:45:00 AM, [address], [place], [address], Insurance Providers Payer Name Payer Address Payer Phone Subscriber Number Group Number Insured Name Patient Relationship to Insured Coverage Start Date Coverage End Date [employer] Medicare Replacement - PPO [address] [place] [address] [id number] JAMISON VIGIL Self - patient is the insured Medical (General) History Medical History History ICD Code Measles, Mumps, Chicken Pox Heart Disease Anemia Bladder Infections Hernia HTN Stroke hyperlipidemia AFIB Surgical History Surgery Date(Month/Year) tumor removed, 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 > Mildly elevated left ventricular end diastolic pressure of 20-22 mmHg. > Mildly elevated mean pulmonary artery pressure of 29 mmHg. > Normal cardiac indices by Yu and Thermodilution. > [place] coronary anatomy includes patent LAD with 40% mid segment plaque, patent RCA with 40-50% mid segment plaque, severe proximal LCx stenosis. Diagonal branch, OM and rPL noted to have competitive filling from grafts. Selective Bypass graft angiography not performed due to refractory radial spasm. 8.26.25 Hospitalization History Reason Date(Month/Year) [facility] - SOB, fluid retention , severe swelling 2024 ED-Nursing Chief Complain t: C/o clogged reed catheter. Pt has not had any output since 0700. Catheter was placed Saturday in [place] due to hematuria and blood clots. 08/02/2023 ED-Nursing Chief Complain t: [place] placed reed catheter due to urinary retention. Hematuria since then. Patient has been taking ciprofloxacin 500 mg and flomax since then. 08/01/2023 See Above
--- OUTSIDE RECORDS SUMMARY | 2025-08-19 08:18 | XMS_ITS | Patient Health Record ---
Author Organization [facility], [facility] Address [address] [place] [address] Care Team Providers Care Notcher Name Role Phone HOSEA KNOWLES Unavailable [phone] Allergies No Known Allergies Reason For Referral No Information Medications Medication SIG (Take, Route, Frequency, Duration) Notes Start Date End Date Status Potassium Chloride 10 MEQ/100ML as directed Intravenous Acti ve Rosuvastatin Calcium 20 MG 1 tablet Oral ly Once a day Active Lisinopril 20 MG 1 tablet Orally Once a day Active Tamsulosin HCl 0.4 MG 1 capsule Orally O nce a day Active Furosemide 20 MG 1 tablet Orally Once a day Active Social History Tobacco Use: Social History Observation Description Date Details (start date - stop date) Never Smoker NA - NA Tobacco Use/Smoking Question Answer Notes Tobacco use: nonsmoker Problems Problem Type SNOMED Code ICD Code Onset Dates Problem Status W/U Status Risk Notes Problem Gross hematuria (382959796) Gross hematuria (R31.0) Active confirmed Problem Neurogenic bladder (159166060) Neurogenic bladder (N31.9) Active confirmed Problem Benign prostatic hyperplasia (090043287) BPH (benign prostatic hyperplasia) (N40.0) Active confirmed Problem History of gross hematuria (Z87.448) Active confirmed Problem Intermittent self-catheterize (regime/therapy) (924913639) Self-catheteri zes urinary bladder (Z78.9) Active confirmed Problem History of urinary tract infection (8866014342909) History of UTI (Z87.440) Active confirmed Plan Of Treatment No Information Insurance Providers Payer Name Payer Address Payer Phone Subscriber Number Group Number Insured Name Patient Relationship to Insured Coverage Start Date Coverage End Date Aetna [address] [place], [place] [id number] King Perkins Self - patient is the insured Medical (General) History Medical History History ICD Code inguinal hernia recurrent bladder infections hx of anemia hypotension back trouble arthritis heart disease hx of chicken pox hx of mumps hx of measles Surgical History Surgery Date(Month/Year) cyst removal on lung 1973 heart bypass 04/2018 Hospitalization History Reason Date(Month/Year) see surgeries
--- OUTSIDE RECORDS SUMMARY | 2025-08-19 08:18 | XMS_ITS | Encounter Summary ---
Author Organization [facility] Address [address] [place] [address] Care Team Providers Care Accounting Technician Name Role Phone Tiarra Fontanez MD Primary Care Provider [phone] Encounter Details Date Type Department Care Team [...] MYC HYPERTENSION CARE PLAN PROBLEM No Mally Davial documented as of this encounter Visit Diagnoses Not on filedocumented in this encounter Additional Health Concerns Active Problems Noted Date Diagnosed Date LIZ MYC HYPERTENSION CARE PLAN PROBLEM 4 documented as of this encounter Care Teams Accounting Technician Relationship Specialty Start Date End Date Tiarra Fontanez MD [address] [place] [phone] PCP - General Family Practice 07/15/23 documented as of this encounter
[2025-08-19 08:27] VITALS: BP 177/84; PULSE 61; O2SAT 96
--- NOTE | 2025-08-19 08:29 | W.ED.GENADLT ---
HPI - General Adult General: Chief complaint: General Medical Stated complaint: Bulge in the groin Time Seen by Provider: 08/19/25 08:16 History of Present Illness: 84-year-old male presents emergency room complaining of sudden onset of discomfort in the right groin with a bulge this morning. It is improved when he lays down. He has had some pain in the area he has not had any nausea or vomiting no diarrhea no hematochezia melena hematemesis cough chest no dysuria urgency or frequency or hematuria. Related Data Home Medications ?Medication ?Instructions ?Recorded ?Confirmed levothyroxine 25 mcg tablet 25 mcg PO DAILY 07/28/23 05/26/25 rosuvastatin 20 mg tablet 20 mg PO QPM 07/28/23 05/26/25 tamsulosin 0.4 mg capsule 0.4 mg PO DAILY 07/28/23 05/26/25 lisinopril 40 mg tablet 40 mg PO DAILY 01/12/25 05/26/25 potassium chloride 10 mEq 20 meq PO BID 05/20/25 05/26/25 tablet,extended release potassium chloride 20 mEq 20 meq PO BID 05/20/25 05/26/25 tablet,extended release spironolactone 25 mg tablet 25 mg PO DAILY 05/20/25 05/26/25 furosemide 40 mg tablet (Lasix) 40 mg PO BID 05/26/25 05/26/25 Previous Rx's ?Medication ?Instructions ?Recorded hydrochlorothiazide 12.5 mg tablet 12.5 mg PO DAILY #90 tabs 12/02/24 amlodipine 5 mg tablet 5 mg PO BID #180 tabs 01/12/25 apixaban 5 mg tablet (Eliquis) 5 mg PO BID #180 tabs 06/07/25 Allergies Allergy/AdvReac Type Severity Reaction Status Date / Time No Known Allergies Allergy Verified 05/26/25 12:41 ON LICENSE OF [facility] ED PFSH: Medical History Urinary retention Loculated pleural effusion Pulmonary hypertension Atrial fibrillation AVM (arteriovenous malformation) Urinary incontinence Urinary catheter in place Hernia Surgical History Hx of umbilical hernia repair 09/12/23 Dr Allen History of open heart surgery History of quadruple bypass Social History Smoking and tobacco/nicotine status: never used tobacco/nicotine Alcohol intake: never Substance/Drug Use: never Additional social history: He wants full code as discussed with him, his Amy and eldest daughter Rut on 03/31/2025 by Won Mercer MD. 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 [employer] Marital status: Marital status details: Rut Physical Exam Const: COMMON NORMALS: no acute distress GENERAL APPEARANCE: cooperative and comfortable ORIENTATION/CONSCIOUSNESS: Yes awake, Yes oriented to person, Yes oriented to place and Yes oriented to time HENMT: COMMON NORMALS: normocephalic, atraumatic and hearing grossly normal bilaterally HEAD & SCALP: normocephalic and atraumatic Resp: COMMON NORMALS: normal respiratory effort, No retractions, No use of accessory muscles and clear to auscultation bilaterally AUSCULTATION: clear to auscultation bilaterally Cardio: COMMON NORMALS: regular rate, regular rhythm and No murmurs present (Cardio) RATE: regular rate RHYTHM: regular rhythm GI: COMMON NORMALS: Soft to palpation and No hepatosplenomegaly present AUSCULTATION: Yes normoactive bowel sounds PALPATION: Yes Soft to palpation, No Tenderness to palpation present (GI), No Guarding due to palpation present (GI) and Yes No hepatosplenomegaly present : OTHER: Palpable hernia defect that is easily reproduced reducible. Initially on exam not present with Valsalva maneuver able to induce. Extremity: COMMON NORMALS: normal to inspection, capillary refill normal, no clubbing, cyanosis or edema, no calf tenderness and no pedal edema Neuro: SENSORIUM/ORIENTATION: Yes oriented to person, Yes oriented to place and Yes oriented to time Skin: COMMON NORMALS: no rashes or lesions noted GENERAL SKIN EXAM: no rashes or lesions noted Course Vital Signs: Vital signs: Vital Signs Temperature 98.7 F 08/19/25 08:12 Pulse Rate 61 08/19/25 08:27 Respiratory Rate 18 08/19/25 08:12 Blood Pressure 177/84 08/19/25 08:27 Pulse Oximetry 96 08/19/25 08:27 Oxygen Delivery Me thod Room Air 08/19/25 08:12 MDM - General Adult Medical Decision Making No sign of bowel obstruction on exam at this time. Small inguinal hernia which is reproducible not strangulated or incarcerated. Will discharge patient home and referred to general surgery on an outpatient basis. Medical Records I reviewed the patient's medical records. Lab Data I reviewed the patient's lab results. No radiology studies performed this visit Discharge Plan Discharge Patient Disposition: Home Clinical Impression: Hernia, inguinal, right Condition: Stable Prescriptions: No Action furosemide [Lasix] 40 mg tablet 40 mg PO BID spironolactone 25 mg tablet 25 mg PO DAILY potassium chloride 20 mEq tablet extended release 20 meq PO BID hydrochlorothiazide 12.5 mg tablet 12.5 mg PO DAILY Qty: 90 3RF Eliquis 5 mg tablet 5 mg PO BID Qty: 180 3RF Rx Instructions: 340 B levothyroxine 25 mcg Tablet 25 mcg PO DAILY tamsulosin 0.4 mg capsule 0.4 mg PO DAILY rosuvastatin 20 mg tablet 20 mg PO QPM potassium chloride 10 mEq tablet extended release 20 meq PO BID lisinopril 40 mg tablet 40 mg PO DAILY amlodipine 5 mg Tablet 5 mg PO BID Qty: 180 0RF Discharge Orders: Discharge ED (Routine); Ordered 08/19/25 Ordered By: Ranjith Silva Referrals: Katie Otto NP [Primary Care Provider, Unknown] Discharge Diet: Usual diet Discharge Activity: Limit activity as instructed Patient Instructions: Opioid Safety, Pain Management, Patient Portal & Hiren Instructions Activity Restrictions/Additional Instructions: Thank you for choosing [facility] for your healthcare needs today. It is very important that you follow up as instructed or that you return to the Emergency Department should you have concerns or if your condition changes or worsens in any way. Emergency department visits are focused on emergent conditions, in some cases you may require further evaluation on an outpatient basis. You are seen in the emergency room with complaint of a bulge in the right inguinal region. On exam you have a hernia that is not incarcerated or strangulated. These can be referred to outpatient general surgery for evaluation and discussion of definitive treatment options. Case management will make arrangements for you to see general surgery (Please note that included in your discharge packet is information concerning opioid safety and pain management. This information is given to all patients were discharged from the ER regardless of their discharge diagnosis or the medicines they usually take or are prescribed.) Print Language: Malaysian Coding Level of Care Code ED Dynamics Ax Developer for Eva Bowles
--- NOTE | 2025-08-19 08:46 | DCPLANNER ---
messaged gen surg for er f/u
== END 2025-08-19 08:35 | disposition home or self-care (01) ==
PROVIDERS: Emergency Provider Family Medicine; PCP Nurse Practitioner Family
DX: K40.90 Unilateral inguinal hernia, without obstruction or gangrene, not specified as recurrent (principal); Z79.01 Long term (current) use of anticoagulants
CPT/HCPCS: 99281

== ENCOUNTER → 2025-09-01 10:22 | Outpatient (BNVA) | payer MEDICARE, SELFPAY | PROVIDERS: PCP Nurse Practitioner Family; Visit Provider Surgery | DX: K46.9 Unspecified abdominal hernia without obstruction or gangrene (principal) | CPT/HCPCS: 99214 ==

== ENCOUNTER → 2025-09-08 13:01 | Outpatient (BNVA) | payer MEDICARE, SELFPAY | PROVIDERS: PCP Nurse Practitioner Family; Visit Provider Family Medicine | DX: Z01.818 Encounter for other preprocedural examination (principal); N39.0 Urinary tract infection, site not specified | CPT/HCPCS: 80053; 81000; 85025; 87086 ==

== ENCOUNTER 2025-09-17 09:44 | Outpatient (CLI) | payer MEDICARE, SELFPAY ==
[2025-09-17 10:50] LABS: Anion Gap 14.8 (5-19); Blood Urea Nitrogen 21 mg/dL (8-23); Calcium 9.2 mg/dL (8.5-10.5); Carbon Dioxide 23 mmol/L (22-29); Chloride 89 mmol/L (98-107); Glucose 98 mg/dL (65-115); Osmolality Calculated 257 mOsm/kg (285-295); Potassium 4.8 mmol/L (3.5-5.1); Sodium 122 mmol/L (136-145)
== END 2025-09-17 09:45 | disposition home or self-care (01) ==
PROVIDERS: PCP Nurse Practitioner Family; Visit Provider Surgery
DX: E87.1 Hypo-osmolality and hyponatremia (principal)
CPT/HCPCS: 36415; 80048

== ENCOUNTER 2025-10-18 05:34 | Day surgery (SDC) | payer MEDICARE, SELFPAY ==
[2025-10-18] VITALS (10 sets, daily range): BP systolic 121–150; BP diastolic 61–79; PULSE 68–87; RESP 8–18; TEMP 36.4–37; O2SAT 94–98; BMI 27.8
--- NOTE | 2025-10-18 06:44 | W.PM.OPSFHP ---
Same Day Surgery H&P Indication for Procedure/HPI DATE OF PROCEDURE: October 18, 2025 CHIEF COMPLAINT/INDICATIONFOR SURGICAL PROCEDURE: right inguinal hernia PREOP DIAGNOSIS: right inguinal hernia PLANNED PROCEDURE: Operation Date: 10/18/25 07:25 Proposed Procedures p Right Open Inguinal Hernia Repair w/ Mesh 95030 K46.9(Right) - Julien Mei MD Medications/Allergies* Home Medications ?Medication ?Instructions ?Recorded ?Confirmed ?Type levothyroxine 25 mcg tablet 25 mcg PO DAILY 07/28/23 10/18/25 History rosuvastatin 20 mg tablet 20 mg PO QPM 07/28/23 10/18/25 History tamsulosin 0.4 mg capsule 0.4 mg PO DAILY 07/28/23 10/18/25 History lisinopril 40 mg tablet 40 mg PO DAILY 01/12/25 10/18/25 History potassium chloride 10 mEq 10 meq PO BID 05/20/25 10/18/25 History tablet,extended release furosemide 40 mg tablet (Lasix) 10 mg PO BID PRN swelling 09/08/25 10/18/25 History Allergies/Adverse Reactions Allergy/AdvReac Type Severity Reaction Status Date / Time No Known Allergies Allergy Verified 10/18/25 06:03 Current Medications: Generic Name Dose Route Start Last Admin Trade Name Freq PRN Reason Stop Dose Admin Sodium Chloride 1,000 mls @ 30 mls/hr 10/18/25 06:00 10/18/25 06:20 Sodium Chloride 0.9% IV 10/19/25 05:59 30 mls/hr .Q24H WENDY Administration Pertinent History/Comorbid Conditions* Medical History (Updated 08/27/25 @ 00:01 by EULA Daniel) Urinary retention Loculated pleural effusion Pulmonary hypertension Atrial fibrillation AVM (arteriovenous malformation) Urinary incontinence Urinary catheter in place Hernia Surgical History (Updated 04/04/25 @ 00:01 by EULA Daniel) Hx of umbilical hernia repair 09/12/23 Dr Allen History of open heart surgery History of quadruple bypass Social History Smoking and tobacco/nicotine status: never used tobacco/nicotine Alcohol intake: never Substance/Drug Use: never Additional social history: He wants full code as discussed with him, his Amy and eldest daughter Rut on 03/31/2025 by Won Mercer MD. 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
--- NOTE | 2025-10-18 07:33 | ANES.PREANE2 ---
Pre-Anesthetic Assessment Height/Weight: Height 6 ft Weight 205 lb Temp Pulse Resp BP Pulse Ox O2 Del Method 97.5 F L 74 16 150/70 98 Room Air 10/18/25 06:00 10/18/25 06:00 10/18/25 06:00 10/18/25 06:00 10/18/25 06:00 10/18/25 06:00 Preop Diagnosis: right inguinal hernia Operation Date: 10/18/25 07:25 Proposed Procedures p Right Open Inguinal Hernia Repair w/ Mesh 00352 K46.9(Right) - Julien Mei MD Was Beta Haydee taken within 24 hours: N/A Was Clonidine taken within 24 hours: N/A Last intake: Intake Last Liquid Date 10/17/25 Last Liquid Time 20:00 Last Solid Date 10/17/25 Last Solid Time 20:00 Social No alcohol and No tobacco Exam alert, oriented x 3, clear to auscultation bilaterally and regular rate & rhythm Airway Submandibular: within normal limits Cervical ROM: within normal limits Mallampati: Class III Dentition: full Comments: Comments: Gold caps on teeth Anesthetic Plan ASA status: 3 Anesthesia: General Other: No prior issues with anesthesia NPO since yesterday evening History of hypertension on amlodipine, lisinopril History of moderate aortic stenosis with trace regurgitation Echo performed 01/12/2025 showing EF of 60% A-fib on chronic apixaban. Last taken 10/13/2025 Labs performed on 09/17/2025 showing NA 122. Unknown cause for hyponatremia. Previously patient's sodium has always been okay. Patient has been on a high salt diet. Labs performed at [facility] 3 days ago showing NA of 135 with normal potassium Plan for general anesthesia with possible postop peripheral nerve block Medications/Allergies Home Medications ?Medication ?Instructions ?Recorded ?Confirmed ?Last Taken ?Type levothyroxine 25 mcg tablet 25 mcg PO DAILY 07/28/23 10/18/25 10/17/25 History rosuvastatin 20 mg tablet 20 mg PO QPM 07/28/23 10/18/25 10/17/25 History tamsulosin 0.4 mg capsule 0.4 mg PO DAILY 07/28/23 10/18/25 10/17/25 History amlodipine 5 mg tablet 5 mg PO BID #180 tabs 01/12/25 10/18/25 10/17/25 Rx lisinopril 40 mg tablet 40 mg PO DAILY 01/12/25 10/18/25 10/17/25 History potassium chloride 10 mEq 10 meq PO BID 05/20/25 10/18/25 10/17/25 History tablet,extended release apixaban 5 mg tablet (Eliquis) 5 mg PO BID #180 tabs 06/07/25 10/18/25 10/13/25 Rx furosemide 40 mg tablet (Lasix) 10 mg PO BID PRN swelling 09/08/25 10/18/25 10/17/25 History Allergies Allergy/AdvReac Type Severity Reaction Status Date / Time No Known Allergies Allergy Verified 10/18/25 06:03 Current Medications Generic Name Dose Route Start Last Admin Trade Name Freq PRN Reason Stop Dose Admin Sodium Chloride 1,000 mls @ 30 mls/hr 10/18/25 06:00 10/18/25 06:20 Sodium Chloride 0.9% IV 10/19/25 05:59 30 mls/hr .Q24H WENDY Administration PFSH Anesthesia Medical History Urinary retention Loculated pleural effusion Pulmonary hypertension Atrial fibrillation AVM (arteriovenous malformation) Urinary incontinence Urinary catheter in place Hernia Surgical History Hx of umbilical hernia repair 09/12/23 Dr Allen History of open heart surgery History of quadruple bypass Social History Smoking and tobacco/nicotine status: never used tobacco/nicotine Alcohol intake: never Substance/Drug Use: never Additional social history: He wants full code as discussed with him, his Amy and eldest daughter Rut on 03/31/2025 by Won Mercer MD. 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
[2025-10-18] MEDS: ceFAZolin 2,000 mg SDV 2000 MG IVP (08:00)
[2025-10-18] MEDS: BUPivacaine 0.25% INJ 30 mL INJECTION (09:40)
[2025-10-18] MEDS: lidocaine-epi 1% PF 1:200,000 30 mL SDV INJECTION (09:40)
--- NOTE | 2025-10-18 09:52 | P.OP_ITS ---
Operative Report Date of procedure: October 18, 2025 Pre-op diagnosis: Right inguinal hernia Post-op diagnosis: right inguinal hernia with a direct and indirect component Post-op findings: There was a right inguinal hernia, reducible, hernia direct and indirect component and in addition to that there was a small lipoma of the cord. Procedure done: Open right inguinal hernia repair with mesh Implants: Bard mesh polypropylene Specimens removed/disposition: Lipoma of the cord Surgeon: Julien Mei MD [employer] Pump Tender: GIANA OR STaff Estimated blood loss: 10 Complications: none Brief History: 84-year-old male with right inguinal hernia who presented to my office for evaluation. After discussion of risk benefits with side to proceed to the OR for repair. Procedure: Patient was brought into the OR, he was placed in a supine position. General anesthesia was given. The abdomen was prepped and draped in the usual sterile fashion. Timeout was conducted. I proceeded to jose a the anatomic landmarks in the right groin. And then I made a 5 cm incision in the right groin overlying the area of the pubic tubercle. The incision was deepened into subcutaneous tissue and Chika's fascia was opened, the aponeurosis of the external bleak was identified. With the help of a knife. I made a small dafne in the aponeurosis of the external bleak, I then used Metzenbaum to open the external oblique in the direction of the fibers taking careful consideration of injuring any surrounding structures. It was evident that there was a direct hernia, with careful blunt dissection I was able to encircle the cord structures and the [place] was used to hold it. In addition at this point it was then defied that there was an indirect component with weakness of the posterior wall and small bulging of the preperitoneal fat. I proceeded to open the cremaster in a longitudinal fashion. I then used careful blunt and sharp dissection to individualize the cord structures, hernia sac was identified was dissected all the way down to the internal ring, the hernia sac was then high ligated using a 2-0 Vicryl. Before high ligation I twisted the sac to ensure that there was nothing inside. A small lipoma of the cord was then divided and excised, the base of the lipoma was also ligated to prevent bleeding. The floor of the canal was then plicated using #2-0 Vicryl sutures to fix the indirect component. I then placed mesh in the floor of the canal, the mesh was fixed with #0 Prolene medially to the pubic tubercle, and then I used #2-0 Prolene fixating the inferior direction to the shelving edge of the inguinal ligament, in the superior direction to the conjoined tendon and in the lateral direction the tails of the mesh were joined together to recreate the internal ring. Hemostasis was verified. Local anesthesia was infiltrated into the tissues. The aponeurosis of the external bleak was closed with #2-0 Vicryl. I then proceeded to closed the wound in layers using #3-0 Vicryl for Chika's fascia and subcutaneous tissue and #4 Monocryl for the skin. Dermabond was applied. At the end of the procedure all counts were correct the patient tolerated well the procedure and was transferred to the PACU in stable condition
--- NOTE | 2025-10-18 11:15 | ANE.PACU2 ---
Inpatient post-anesthesia follow up: Airway intact: Yes Vital signs: Temperature 98.2 F Pulse Rate 87 Respiratory Rate 16 Blood Pressure 147/74 Pulse Oximetry 94 Oxygen Delivery Me thod Room Air Oxygen Flow Rate 8 Fraction of Inspir ed Oxygen Hydration adequate: Yes Nausea and vomiting: No Pain level: 1 Mental status: Baseline
== END 2025-10-18 11:15 | disposition home or self-care (01) ==
PROVIDERS: PCP Nurse Practitioner Family; Visit Provider Surgery
PROC: (CPT 55520; principal; 2025-10-18 07:25)
DX: K40.90 Unilateral inguinal hernia, without obstruction or gangrene, not specified as recurrent (principal); I10 Essential (primary) hypertension; I35.0 Nonrheumatic aortic (valve) stenosis; I35.1 Nonrheumatic aortic (valve) insufficiency; I48.91 Unspecified atrial fibrillation; Z79.01 Long term (current) use of anticoagulants; Z86.711 Personal history of pulmonary embolism
CPT/HCPCS: 55520; 88304; C1781; J0131; J0690; J1100; J2371; J2405; J2704; J3010; J3490; J7030; J9999